=== PATIENT | female | born 1980 | race Caucasian/White ===

== ENCOUNTER 2019-02-01 13:55 | Outpatient (CLI) | payer MEDICARE, MEDICAID, SELFPAY ==
[2019-02-01 14:30] LABS: HCT 48.5 % (36.0-46.0); HGB 17.2 g/dL (12.0-15.5); Mean Corp. HGB Concentration 35.5 g/dL (32.0-36.0); Mean Corpuscular Hemoglobin 32.3 pg (27.0-33.0); Mean Corpuscular Volume 91.2 fL (80-95); Mean Platelet Volume 9.5 fL (8.0-11.0); Platelet Count 234 x1000/uL (130-400); RBC 5.32 m/cumm (4.00-5.20); RBC Distribution Width 11.9 % (11.7-14.6); White Blood Cell Count 8.44 k/cumm (4.4-10.8)
[2019-02-01 14:38] LABS: PTT Activated 26.1 sec (21.0-31.4)
[2019-02-01 16:26] LABS: ALT 29 U/L (12-78); AST 14 U/L (15-37); Anion Gap 10.7 mmol/L (3-11); BUN 19 mg/dL (7-18); CO2 24.3 mmol/L (21.0-32.0); CREATININE 0.71 mg/dL (0.55-1.02); Calcium 8.8 mg/dL (8.5-10.1); Chloride 102 mmol/L (98-107); Cholesterol 245 mg/dL (50-200); Glucose 96 mg/dL (70-100); HDL Cholesterol 39 mg/dL (40-60); LDL CHOLESTEROL 178 mg/dL (<100); Potassium 4.2 mmol/L (3.5-5.1); Sodium 137 mmol/L (136-145); Triglyceride 128 mg/dL (30-150)
== END 2019-02-01 14:15 ==
PROVIDERS: PCP Nurse Practitioner Family; Visit Provider Nurse Practitioner Family
DX: R23.8 Other skin changes (principal); E78.00 Pure hypercholesterolemia, unspecified; R21 Rash and other nonspecific skin eruption; R68.83 Chills (without fever)
CPT/HCPCS: 36415; 80048; 80061; 83721; 85027; 84450; 84460; 85730

== ENCOUNTER 2019-07-13 17:42 | Outpatient (REF) | payer MEDICARE, MEDICAID, SELFPAY ==
--- NOTE | 2019-07-13 15:24 | PAPFT_PTH ---
PATIENT: Judie Felix LOC: [facility] U#:[id number] AGE/SX: 39/F ROOM: RE07/13/[address]: Candelaria Cedeño : 1980 BED: DIS: 07/13/2019 SPEC #: [id number] RECD: 07/14/19 13:14 STATUS: SUMEET REQ #: [id number] ODILIA: 07/13/19 15:[address]: Candelaria Cedeño DEPT: [facility] Cytology RECD BY: Rosario Matos Tissues: 1 - CX/ENDOCX FOR PAP SMEARS Procedures: PAP THIN PREP/UVM Screening HPV DNA PROBE Comments: [id number] (CHLAMYDIA/GC)
[2019-07-15 12:41] LABS: Chlamydia Result Negative; GC Result Negative; Specimen Description SEE COMMENTS
== END 2019-07-13 18:02 ==
LOC: NCHCN 17:42
PROVIDERS: PCP Nurse Practitioner Family; Visit Provider Nurse Practitioner Family
DX: Z11.3 Encounter for screening for infections with a predominantly sexual mode of transmission (principal); Z12.4 Encounter for screening for malignant neoplasm of cervix; Z11.51 Encounter for screening for human papillomavirus (HPV)
CPT/HCPCS: 87491; 87591; 88142; 87624

== ENCOUNTER 2020-11-16 04:10 | Outpatient (CLI) | payer OTHER, MEDICAID, SELFPAY ==
--- NOTE | 2020-11-16 14:51 | DI.RAD_ITS ---
EXAM: XR LUMBAR SPINE COMPLETE CLINICAL HISTORY: LOW BACK PAIN, M54.5. TECHNIQUE: 2D digital imaging was performed. COMPARISON: No exams were available for comparison FINDINGS: The exam is somewhat limited by the patient's body habitus. Vertebral bodies are well maintained in height. The disc spaces are well maintained. There is no spondylolysis, spondylolisthesis or scolio sis. SI joints and visualized portions of the hip joints are unremarkable. The soft tissues are unr emarkable. IMPRESSION: Unremarkable radiographs of the lumbar spine. DATA REPOSITORY: RADIATION DOSE DELIVERED:
== END 2020-11-16 04:30 ==
PROVIDERS: PCP Nurse Practitioner Family; Visit Provider Nurse Practitioner Family
DX: M54.5 Low back pain (principal)
CPT/HCPCS: 72110

== ENCOUNTER 2021-03-10 17:10 | Emergency (ER) | payer OTHER, MEDICAID, SELFPAY ==
[2021-03-10 17:14] VITALS: BP 146/83; PULSE 107; TEMP 36.9; O2SAT 94
--- NOTE | 2021-03-10 17:45 | ED.GENADUL_ITS ---
Discharge Plan Disposition Patient Disposition: HOME Condition: Stable Discharge Details Clinical Impression: Dog bite of left thigh with infection Primary Care Provider: Candelaria Cedeño ED Provider: Dino Mcarthur Home Meds and New Rx's Prescriptions: New levofloxacin 500 mg tablet 500 mg PO DAILY Qty: 10 RF: 0 clindamycin HCl 300 mg capsule 300 mg PO TID 10 Days Qty: 30 RF: 0 Continued medroxyprogesterone 10 MG tablet 10 mg PO DAILY Qty: 90 RF: 1 ipratropium-albuterol [Combivent] 1 PUFF aerosol 2 inhaler Inhalation PRN PRNRF: 0 aripiprazole [Abilify] 30 MG tablet 30 mg PO DAILY RF: 0 clonazepam 1 MG tablet 1 mg PO QID RF: 0 bupropion HCl [Wellbutrin XL] 300 MG tablet extended release 24 hr 450 mg PO DAILY RF: 0 albuterol sulfate 2.5 MG/0.5 ML solution for nebulization 2.5 mg Inhalation PRN PRNRF: 0 umeclidinium [Incruse Ellipta] 1 PUFF blister with device 1 puff Inhalation DAILY RF: 0 Discharge Instructions Instructions: Wound Infection (ED) Additional Instructions: Home to rest today. Elevate the leg above the level of the heart to improve drainage and help reduce pain. May use Tylenol and/or ibuprofen as needed for discomfort. Please stop the currently prescribed Augmentin(amoxicillin with clavulanic acid) We will place you on 2 antibiotics: Levaquin as well as clindamycin. The clindamycin should be taken at home every 6 hours. The Levaquin will be once daily. I recommend you take an [id number] once daily probiotic while on these antibiotics. Return tomorrow for recheck. Return sooner if develop a shaking chills or any other acute concerns. Discharge Data Discharge Date/Time-TO BE ENTERED AT DEPARTURE: 03/10/21 20:08 Medical Decision Making This is a 40-year-old female who presents from home stating that she was bit by a dog on . She was seen in a primary care physician's office on Thursday and started on Augmentin. Her tetanus status was updated at that time. She may take the Augmentin as prescribed and has noticed increasing erythema around the wound edges. No fevers or chills. Patient arrives to the ER afebrile, pulse slightly elevated at 107, normal blood pressure. She has evidence of a cellulitis surrounding area of dog bite left medial thigh. Augmentin is certainly reasonable initial coverage. Her cellulitis is breaking through this oral coverage. IV access established, screening labs and blood culture obtained, patient given IV Levaquin. Labs are reassuring with a white count of 8, hematocrit 46, platelets 256, lactic acid of 1.4, reassuring chemistries. I will place her on a course of Levaquin and clindamycin. She will return tomorrow for recheck. HPI General Mode of arrival: ambulatory . Date/Time Provider Initiated Documentation: 03/10/21 17:32 . Limitations to Documentation: no limitations . Information obtained by: patient . History of Present Illness 40 year old F presents to the emergency department with the chief complaint of Left leg dog bite, described as moderate, Quality is described as dull and constant, and is localized to the left and lower extremity. Patient reports no radiation. Patient started experiencing this day(s) and it has been constant. No relieving factors improve symptom(s), No exacerbating factors reported . Patient notes denies fever/chills. Patient did receive the following treatments prior to arrival, none Related Data Home Medications Medication Instructions Recorded Confirmed aripiprazole [Abilify] 30 mg PO DAILY 12/31/12 10/15/17 bupropion HCl [Wellbutrin XL] 450 mg PO DAILY 12/31/12 10/15/17 clonazepam 1 mg PO QID 12/31/12 10/15/17 ipratropium-albuterol [Combivent] 2 inhaler INHALATION PRN PRN 12/31/12 10/15/17 albuterol sulfate 2.5 mg INHALATION PRN PRN 10/13/17 10/15/17 umeclidinium [Incruse Ellipta] 1 puff INHALATION DAILY 10/13/17 10/15/17 medroxyprogesterone 10 mg PO DAILY #90 tab 10/27/17 clindamycin HCl 300 mg PO TID 10 Days #30 cap 03/10/21 levofloxacin 500 mg PO DAILY #10 tab 03/10/21 Previous Rx's Medication Instructions Recorded medroxyprogesterone 10 mg PO DAILY #90 tab 10/27/17 clindamycin HCl 300 mg PO TID 10 Days #30 cap 03/10/21 levofloxacin 500 mg PO DAILY #10 tab 03/10/21 Allergies Allergy/AdvReac Type Severity Reaction Status Date / Time Penicillins AdvReac Intermediate Hives Unverified 03/11/21 15:01 ropinirole [From Requip] AdvReac Intermediate hallucinate Unverified 03/11/21 15:01 / confusion General Stated Complaint: Cellulitis ROYAL: 3 Review of Systems Narrative: No fever or chills. Taking Augmentin day #3. Tetanus is updated. 6 systems reviewed and otherwise negative [facility] Social History Smoking/Tobacco Use Status: Current every day Tobacco Type: cigarettes Smoking risk assessment performed?: Yes Alcohol Intake: former Drug use: Current Sobriety Substance use type: does not use Do you feel safe at home: Yes Do you feel safe in your relationship?: Yes Exam Narrative Exam Narrative: GEN: awake, alert, oriented 3. Pleasant, well groomed, interactive. HEAD: Normocephalic, atraumatic ENT: Mucous membranes moist, oropharynx unremarkable, External ear exam unremarkable EYES: PERRL, EOMI NECK: Full ROM, no CRYSTAL, no menigismus CHEST/RESP: Nontender, clear to auscultation bilateral, no wheeze/rhonchi/rales CARDIOVASCULAR: RRR, no murmur, rub augustine. 2+ Rad pulse bilateral EXT: Full ROM, n left medial thigh with approximately 1 x 2 cm laceration an additional puncture wound surrounded by approximately 10 cm diameter erythema, tender to the touch. Neuro: Grossly normal neurologic exam, conversant, interactive. Psych: Speech fluent, thoughts congruent, affect normal Course Vital Signs Vital signs: Vital Signs Temperature 36.9 C 03/10/21 17:14 Pulse 107 H 03/10/21 17:14 Blood Pressure 146/83 H 03/10/21 17:14 Pulse Oximetry 94 03/10/21 17:14 Temperature 36.9 C 03/10/21 17:14 Temperature Source Oral 03/10/21 17:14 Pulse 107 H 03/10/21 17:14 Blood Pressure 146/83 H 03/10/21 17:14 Blood Pressure Position Sitting 03/10/21 17:14 Pulse Oximetry 94 03/10/21 17:14 Oxygen Delivery Method Room Air 03/10/21 17:14 Oxygen Flow Rate 0 03/10/21 17:14 Pain Level 8 03/10/21 17:14
[2021-03-10 18:33] LABS: Abs Immature Grans 0.03 10^3/uL (0.0-0.06); Absolute Basophil Count 0.05 10^3/uL (0.0-0.2); Absolute Eosinophil Count 0.01 10^3/uL (0.0-0.7); Absolute Lymphocyte Count 2.79 10^3/uL (1.2-3.4); Absolute Monocyte Count 0.56 10^3/uL (0.1-0.8); Absolute Neutrophil Count 5.27 10^3/uL (1.2-6.7); Basophils % 0.6; Eosinophils % 0.1; HCT 46.1 % (36.0-46.0); HGB 15.5 g/dL (11.2-15.7); Immature Grans % 0.3; MCH 31.6 pg (27.0-33.0); MCHC 33.6 % (32.0-36.0); MCV 94.1 fL (80-95); MPV 9.5 fL (8.0-11.0); Monocytes % 6.4; Neutrophils % 60.6; Nucleated RBC 0 %; Platelet Count 256 10^3/uL (130-400); RDW 11.3 % (11.7-14.6); RDW-SD 39.5 fL; WBC 8.71 10^3/uL (4.4-10.8)
[2021-03-10] MEDS: Normal Saline Flush 10 ML SYR IVP (18:33)
[2021-03-10] MEDS: Ketorolac 15 MG/ML VIAL IVP (18:33)
[2021-03-10] MEDS: levoFLOXacin 750 MG/150 ML BAG 100 MG IVPB (18:33)
[2021-03-10] MEDS: Normal Saline 1,000 ML 1000 ML IV (18:33)
[2021-03-10 18:34] LABS: Lactate 1.4 mmol/L (0.6-1.4)
[2021-03-10 18:44] LABS: BUN 26 mg/dL (7-18); CREATININE 0.7 mg/dL (0.55-1.02); Calcium 9.1 mg/dL (8.5-10.1); Chloride 103 mmol/L (98-107); Glucose 94 mg/dL (74-106); Potassium 4.1 mmol/L (3.5-5.1); Sodium 139 mmol/L (136-145)
[2021-03-10 19:00] VITALS: BP 130/79; PULSE 86; RESP 18; TEMP 37.2; O2SAT 97
[2021-03-10 19:52] VITALS: BP 112/75; PULSE 91; RESP 16; TEMP 36.9; O2SAT 96
--- NOTE | 2021-03-11 09:03 | NUR.NOTE ---
Nursing Note: Patient called stating that her leg is throbbing more, swollen more and she is still waiting for her blood culture results. I told her that the blood cultures are still pending. I also told her that the discharge instructions stated to return today for recheck and that she needed to return for this visit. She stated she would come back today. Mishel Reyez
== END 2021-03-10 20:08 | disposition home or self-care (01) ==
PROVIDERS: Emergency Provider Emergency Medicine; PCP Nurse Practitioner Family
DX: S71.152A Open bite, left thigh, initial encounter (principal); L03.116 Cellulitis of left lower limb; W54.0XXA Bitten by dog, initial encounter
CPT/HCPCS: 36415; 80048; 87040; 96361; 96365; 96375; 99284; 83605; 85025; 99283; J1885; J1956

== ENCOUNTER 2021-03-11 14:43 | Emergency (ER) | payer OTHER, MEDICAID, SELFPAY ==
[2021-03-11 14:51] VITALS: BP 146/78; PULSE 103; RESP 22; TEMP 37.1; O2SAT 95
--- NOTE | 2021-03-11 15:00 | DI.CT_ITS ---
Exam(s) CT LOWER EXTREMITY LT W EXAM: CT LOWER EXTREMITY LT W CLINICAL HISTORY: dog bite L thigh, worsening, r/o nec/fasc TECHNIQUE: COMPARISON: No exams were available for comparison FINDINGS: CT examination of the left thigh was performed. There is a poorly history of dog bite on the inner t high, there is corresponding soft tissue defect noted at this site with mild surrounding edema. Ther e is no evidence of a foreign body. No muscular injury identified. No bony injury identified. IMPRESSION: Anterior medial thigh soft tissue defect secondary to dog bite, no foreign body identified. RADIATION DOSE DELIVERED: 383.21mGy.cm Total DLP RADIATION OPTIMIZATION: All CT scans at this facility use at least one of these dose optimization te chniques: automated exposure control; mA and/or kV adjustment per patient size (includes targeted exa ms where dose is matched to clinical indication); or iterative reconstruction.
[2021-03-11] MEDS: Lactated Ringers 1,000 ML 1000 ML IV (15:40)
--- NOTE | 2021-03-11 15:47 | W.ED.GENAD ---
Discharge Plan Disposition Patient Disposition: HOME Condition: Good Discharge Details Clinical Impression: Dog bite, Cellulitis of left thigh Primary Care Provider: Candelaria Cedeño ED Provider: Jaden Flannery Home Meds and New Rx's Prescriptions: Continued medroxyprogesterone 10 MG tablet 10 mg PO DAILY Qty: 90 RF: 1 ipratropium-albuterol [Combivent] 1 PUFF aerosol 2 inhaler Inhalation PRN PRNRF: 0 aripiprazole [Abilify] 30 MG tablet 30 mg PO DAILY RF: 0 clonazepam 1 MG tablet 1 mg PO QID RF: 0 bupropion HCl [Wellbutrin XL] 300 MG tablet extended release 24 hr 450 mg PO DAILY RF: 0 albuterol sulfate 2.5 MG/0.5 ML solution for nebulization 2.5 mg Inhalation PRN PRNRF: 0 umeclidinium [Incruse Ellipta] 1 PUFF blister with device 1 puff Inhalation DAILY RF: 0 levofloxacin 500 mg tablet 500 mg PO DAILY Qty: 10 RF: 0 clindamycin HCl 300 mg capsule 300 mg PO TID 10 Days Qty: 30 RF: 0 Discharge Instructions Instructions: Animal Bite (ED), Cellulitis (ED) Additional Instructions: At this time your labs are slightly improved compared to your last visit. The CAT scan shows no evidence of gas extending up your muscles or legs, and shows no signs of large abscess. The antibiotics at this point appears to be doing their job. Please continue to take them as directed. Please make sure you are eating a yogurt with live cultures like activity and taking a probiotic to help prevent any diarrhea. You have been sent home with a few pain pills. Use these as needed for breakthrough pain. They have some Tylenol in them, so only take a maximum dose of 500 mg of Tylenol when you take this pain pill. Continue to use 800 mg of Motrin every 6 hours as needed for pain. Please follow-up in the next 3 days for wound recheck with your primary care provider or in the emergency department. If you notice any worsening of your symptoms, or any new symptoms such as spreading of the redness up or down your leg, worsening pain or discharge from your leg, dishwater-like discharge coming from your leg, vomiting, diarrhea, fever, chills, shortness of breath, chest pain, numbness, weakness, or fainting , please return immediately to the emergency department for reevaluation. Please follow up with your primary care provider as soon as possible for reassessment and reevaluation. As always, it was a pleasure participating in your medical care today. Referrals: Candelaria Cedeño [Primary Care Provider] - Medical Decision Making This is a pleasant 40-year-old female with a past medical history of tobacco abuse, fibromyalgia, COPD, anxiety, who presents for reevaluation of dog bite. Patient states that 6-7 days ago she was bitten by a dog on the left thigh. The dog's rabies vaccines are up-to-date. Patient's tetanus status was up-to-date. 4 days ago she went and saw her PCP who appropriately started her on Augmentin. Unfortunately in spite of appropriate therapy she developed worsening redness swelling and pain in her left thigh. She was seen here in the emergency department yesterday by Dr. Mcarthur, laboratory work-up at that time was reassuring and relatively unremarkable. Patient was given IV Levaquin and a dose of clindamycin, she was discharged home with prescription for Levaquin and clindamycin as well. She comes back today for wound recheck. Patient states that since yesterday the pain has become more severe, she feels that the swelling has been the same. She has pain when she moves her leg, touches the area around the bite, or tries to walk. She denies fever or chills. She denies nausea vomiting or diarrhea. She denies any chest pain or shortness of breath. She has been taking the antibiotics as directed. No other complaints at this time. No other modifying factors. Exam demonstrates to lesions on the medial thigh on the left. The larger 4 cm lesion is gaping, mildly purple around the wound edges, mildly red surrounding this. Notable tenderness in this area, the smaller lesion is roughly 1.5 cm, mildly tender. There is swelling somewhat posteriorly to these lesions, but no severe redness aside from mild circumferential redness. Mild tenderness proximally up the thigh which is concerning. No subcutaneous crepitus that I can appreciate. No hard compartments to suggest compartment syndrome. No decrease in sensation to suggest compartment syndrome. Mild swelling on the medial aspect of the left knee, but no redness or warmth. Minimal pain with movement of the knee. It is challenging to determine whether things are worse or better objectively. Patient states that the pain is certainly worse than before. No fever or chills. Mild tachycardia. We will get repeat labs to look for any change, however I do think it is pertinent to get imaging at this time to evaluate for gas extending up the muscle belly regions. Symptoms do not appear overly consistent with neck fascia at this time, no large amounts of dish watery discharge or discharge of significance to speak of. We will get a CT scan to assess for these concerns. Will monitor closely and reassess. 5:[address] scan results have returned, no evidence of subcutaneous air, no evidence of necrotizing fasciitis, the patients labs are notably improved, lactate normal, white count stable, no elevation, no bandemia or left shift. Electrolytes stable. On reassessment patient feels well, she clinically shows no signs of necrotizing fasciitis, foreign years, compartment syndrome, or sepsis. At this time based on clinical assessment, encouraging labs, and relatively unremarkable imaging I do feel that the patient is stable for discharge with continued outpatient oral antibiotics. No current clinical indication for inpatient admission. We will also recommend to the patient that she takes a yogurt with live cultures, we will give for [place] pain pills for home use for breakthrough pain if needed. Recommend close follow-up for wound recheck. I have extensively reviewed the treatment plan and discharge instructions with the patient. I have addressed all patient concerns at this time. The patient was made aware of what symptoms to monitor for that would warrant a return to the emergency department. Discussed the plan with the patient, they demonstrate verbal understanding and agreement with our assessment and plan at this time. The documentation in this chart was dictated using [employer] dictation software. Please excuse any dictation errors. FINDINGS: Bones/joints: Normal. No acute fracture or dislocation. Soft tissues: There is subcutaneous soft tissue edema diffusely about the subcutaneous soft tissues of the posterior, posterolateral and medial left thigh. There is no evidence for a radiopaque foreign body. There is a shallow soft tissue defect of the anteromedial soft tissues of the mid to distal left thigh, measuring 2.1 cm transverse by 6 mm craniocaudal. There is more intense regional subcutaneous soft tissue edema in this region. IMPRESSION: 1. A shallow soft tissue defect at the anteromedial soft tissues of the mid to distal left thigh compatible with soft tissue laceration. 2. Diffuse subcutaneous soft tissue edema about the left thigh. Consider cellulitis. 3. No evidence for a radiopaque foreign body. Thank you for allowing us to participate in the care of your patient. Dictated and Authenticated by: Baljinder Gallo MD [facility] General Date/Time Provider Initiated Documentation: 03/11/21 15:03. [facility] Narrative: This is a pleasant 40-year-old female with a past medical history of tobacco abuse, fibromyalgia, COPD, anxiety, who presents for reevaluation of dog bite. Patient states that 6-7 days ago she was bitten by a dog on the left thigh. The dog's rabies vaccines are up-to-date. Patient's tetanus status was up-to-date. 4 days ago she went and saw her PCP who appropriately started her on Augmentin. Unfortunately in spite of appropriate therapy she developed worsening redness swelling and pain in her left thigh. She was seen here in the emergency department yesterday by Dr. Mcarthur, laboratory work-up at that time was reassuring and relatively unremarkable. Patient was given IV Levaquin and a dose of clindamycin, she was discharged home with prescription for Levaquin and clindamycin as well. She comes back today for wound recheck. Patient states that since yesterday the pain has become more severe, she feels that the swelling has been the same. She has pain when she moves her leg, touches the area around the bite, or tries to walk. She denies fever or chills. She denies nausea vomiting or diarrhea. She denies any chest pain or shortness of breath. She has been taking the antibiotics as directed. No other complaints at this time. No other modifying factors. Related Data Home Medications Medication Instructions Recorded Confirmed aripiprazole [Abilify] 30 mg PO DAILY 12/31/12 10/15/17 bupropion HCl [Wellbutrin XL] 450 mg PO DAILY 12/31/12 10/15/17 clonazepam 1 mg PO QID 12/31/12 10/15/17 ipratropium-albuterol [Combivent] 2 inhaler INHALATION PRN PRN 12/31/12 10/15/17 albuterol sulfate 2.5 mg INHALATION PRN PRN 10/13/17 10/15/17 umeclidinium [Incruse Ellipta] 1 puff INHALATION DAILY 10/13/17 10/15/17 medroxyprogesterone 10 mg PO DAILY #90 tab 10/27/17 clindamycin HCl 300 mg PO TID 10 Days #30 cap 03/10/21 levofloxacin 500 mg PO DAILY #10 tab 03/10/21 Previous Rx's Medication Instructions Recorded medroxyprogesterone 10 mg PO DAILY #90 tab 10/27/17 clindamycin HCl 300 mg PO TID 10 Days #30 cap 03/10/21 levofloxacin 500 mg PO DAILY #10 tab 03/10/21 Allergies Allergy/AdvReac Type Severity Reaction Status Date / Time Penicillins AdvReac Intermediate Hives Unverified 03/11/21 15:01 ropinirole [From Requip] AdvReac Intermediate hallucinate Unverified 03/11/21 15:01 / confusion General Stated Complaint: AnimalBite ROYAL: 3 Review of Systems All systems reviewed & are unremarkable except as noted in HPI and below PFSH Social History Smoking/Tobacco Use Status: Current every day Tobacco Type: cigarettes Smoking risk assessment performed?: Yes Alcohol Intake: former Drug use: Current Sobriety Substance use type: does not use Do you feel safe at home: Yes Do you feel safe in your relationship?: Yes Exam Narrative Exam Narrative: 1.Const: Well-nourished, Well-developed, appearing stated age 2.Eyes: PERRL, no conjunctival injection, and symmetrical lids. 3.ENT: Atraumatic external nose and ears. Moist MM. Neck: Symmetric, trachea midline, No thyromegaly. 4.CVS: +S1/S2, No murmurs or gallops. Peripheral pulses 2+ and equal in all extremities. Brisk capillary refill in all extremities. 5.RESP: Unlabored respiratory effort. Clear to auscultation bilaterally. No wheezes rales or rhonchi 6.GI: Soft, Nontender/Nondistended, No hepatosplenomegaly. No guarding or rebound. 7.MSK: NormocephalicNo cyanosis or clubbing, Normal movement of all extremities, please see skin 8.Skin: Appropriately warm, Dry. The patient's left thigh demonstrates 2 bite parra. The first is slightly proximal, it is roughly 4 cm, slightly gaping, purple around the edges, with mild erythema extending about 1 to 2 cm circumferentially. There is a second much smaller bite lisbet just distal to it, roughly 1.5 to 2 cm in width. Minimal bruising around it, no erythema. All of the areas surrounding both of these bites is notably sensitive and tender, posteriorly towards the posterior thigh there is also swelling and tenderness. No crepitus that I can appreciate. Patient does have tenderness extending towards the medial thigh towards the groin. No crepitus in this area. Mild pain withadduction of the thighs. Mild pain with flexion at the hip. No significant pain in the calf or groin. No tense compartment. Good distal neurovascular exam with normal sensation throughout the foot and calf. Normal two-point discrimination for the foot and left lower extremity good dorsalis pedis and posterior tibial pulse. Mild swelling is also appreciated over the medial aspect of the knee on the left, but no redness in this area. Minimal tenderness in this area. No warmth that is atypical. 9.Neuro: hotel staff member II-XII grossly intact. Sensation grossly intact, no focal neurologic deficits. 10.Psych: (AAO) x3. Appropriate mood and affect Course Vital Signs Vital signs: Vital Signs Temperature 37.1 C 03/11/21 14:51 Pulse 103 H 03/11/21 14:51 Respiratory Rate 22 03/11/21 14:51 Blood Pressure 146/78 H 03/11/21 14:51 Pulse Oximetry 95 03/11/21 14:51 Temperature 37.1 C 03/11/21 14:51 Temperature Source Skin 03/11/21 14:51 Pulse 103 H 03/11/21 14:51 Respiratory Rate 22 03/11/21 14:51 Blood Pressure 146/78 H 03/11/21 14:51 Blood Pressure Position Sitting 03/11/21 14:51 Pulse Oximetry 95 03/11/21 14:51 Oxygen Delivery Method Room Air 03/11/21 14:51 Oxygen Flow Rate 0 03/11/21 14:51 Pain Level 8 03/11/21 14:51 Comment 03/11/21 14:51
[2021-03-11 15:49] LABS: Lactate 0.8 mmol/L (0.6-1.4)
[2021-03-11 15:58] LABS: Abs Immature Grans 0.03 10^3/uL (0.0-0.06); Absolute Basophil Count 0.04 10^3/uL (0.0-0.2); Absolute Eosinophil Count 0.01 10^3/uL (0.0-0.7); Absolute Lymphocyte Count 2.22 10^3/uL (1.2-3.4); Absolute Monocyte Count 0.51 10^3/uL (0.1-0.8); Absolute Neutrophil Count 5.47 10^3/uL (1.2-6.7); Basophils % 0.5; Eosinophils % 0.1; HCT 45.1 % (36.0-46.0); HGB 15.3 g/dL (11.2-15.7); Immature Grans % 0.4; Lymphocytes % 26.8; MCH 31.6 pg (27.0-33.0); MCHC 33.9 % (32.0-36.0); MCV 93.2 fL (80-95); MPV 9.5 fL (8.0-11.0); Monocytes % 6.2; Nucleated RBC 0 %; Platelet Count 254 10^3/uL (130-400); RBC 4.84 10^6/uL (3.93-5.22); RDW 11.3 % (11.7-14.6); RDW-SD 38.6 fL; WBC 8.28 10^3/uL (4.4-10.8)
[2021-03-11] MEDS: Normal Saline - Diluent 50 ML VIAL IV (16:08)
[2021-03-11] MEDS: Omnipaque 350 MG/ML 100 ML BTL IJ (16:08)
[2021-03-11 16:11] LABS: ALT 25 U/L (14-59); AST 14 U/L (15-37); Albumin 3.5 g/dL (3.4-5.0); Alkaline Phosphatase 62 U/L (46-116); Anion Gap 9.5 mmol/L (3-11); BUN 22 mg/dL (7-18); Bilirubin, Total 0.7 mg/dL (0.2-1.0); CO2 26.5 mmol/L (21.0-32.0); CREATININE 0.7 mg/dL (0.55-1.02); Calcium 8.8 mg/dL (8.5-10.1); Chloride 103 mmol/L (98-107); Glucose 105 mg/dL (74-106); Sodium 139 mmol/L (136-145); Total Protein 7.1 g/dL (6.4-8.2)
--- NOTE | 2021-03-11 17:00 | DI.VRAD_ITS ---
PROCEDURE INFORMATION: Exam: CT Left Lower Extremity With Contrast; Thigh Exam date and time: 03/11/2021 3:54 PM Age: 40 years old Clinical indication: Injury or trauma; Wound; Thigh or upper leg; Foreign body involvement not specified; Patient HX: Dog bite inner left thigh TECHNIQUE: Imaging protocol: CT of the Left lower extremity with intravenous contrast was performed. Exam focused on the thigh. COMPARISON: No relevant prior studies available. FINDINGS: Bones/joints: Normal. No acute fracture or dislocation. Soft tissues: There is subcutaneous soft tissue edema diffusely about the subcutaneous soft tissues of the posterior, posterolateral and medial left thigh. There is no evidence for a radiopaque foreign body. There is a shallow soft tissue defect of the anteromedial soft tissues of the mid to distal left thigh, measuring 2.1 cm transverse by 6 mm craniocaudal. There is more intense regional subcutaneous soft tissue edema in this region. IMPRESSION: 1. A shallow soft tissue defect at the anteromedial soft tissues of the mid to distal left thigh compatible with soft tissue laceration. 2. Diffuse subcutaneous soft tissue edema about the left thigh. Consider cellulitis. 3. No evidence for a radiopaque foreign body. Dictated and Authenticated by: Baljinder Gallo MD. Ordering:PAULA Stanley MD
[2021-03-11 17:03] VITALS: BP 140/70; PULSE 87; TEMP 36.6; O2SAT 97
== END 2021-03-11 17:30 | disposition home or self-care (01) ==
PROVIDERS: Emergency Provider Student in an Organized Health Care Education/Training Program; PCP Nurse Practitioner Family
DX: S71.152D Open bite, left thigh, subsequent encounter (principal); L03.116 Cellulitis of left lower limb; W54.0XXA Bitten by dog, initial encounter
CPT/HCPCS: 80053; 96361; 96374; 96375; 99284; 73701; 83605; 85025; 99283; J3490

== ENCOUNTER → 2021-03-21 15:00 | Outpatient (BNVA) | payer OTHER, MEDICAID, SELFPAY | PROVIDERS: PCP Nurse Practitioner Family; Referring Provider Nurse Practitioner Family; Visit Provider Physical Therapy Assistant | DX: S71.152A Open bite, left thigh, initial encounter (principal); W54.0XXA Bitten by dog, initial encounter; L08.9 Local infection of the skin and subcutaneous tissue, unspecified; L03.116 Cellulitis of left lower limb; J44.9 Chronic obstructive pulmonary disease, unspecified; F17.210 Nicotine dependence, cigarettes, uncomplicated | CPT/HCPCS: 99215; 96372; J0696 ==

== ENCOUNTER 2021-03-21 17:20 | Outpatient (REF) | payer OTHER, MEDICAID, SELFPAY ==
[2021-03-21 19:51] LABS: Abs Immature Grans 0.02 10^3/uL (0.0-0.06); Absolute Basophil Count 0.06 10^3/uL (0.0-0.2); Absolute Eosinophil Count 0.01 10^3/uL (0.0-0.7); Absolute Lymphocyte Count 2.65 10^3/uL (1.2-3.4); Absolute Monocyte Count 0.55 10^3/uL (0.1-0.8); Absolute Neutrophil Count 3.96 10^3/uL (1.2-6.7); Basophils % 0.8; Eosinophils % 0.1; HCT 46.4 % (36.0-46.0); HGB 15.9 g/dL (11.2-15.7); Immature Grans % 0.3; Lymphocytes % 36.6; MCH 31.5 pg (27.0-33.0); MCHC 34.3 % (32.0-36.0); MCV 92.1 fL (80-95); MPV 10.2 fL (8.0-11.0); Monocytes % 7.6; Neutrophils % 54.6; Nucleated RBC 0 %; Platelet Count 274 10^3/uL (130-400); RBC 5.04 10^6/uL (3.93-5.22); RDW 11.6 % (11.7-14.6); WBC 7.25 10^3/uL (4.4-10.8)
[2021-03-21 20:00] LABS: ALT 24 U/L (14-59); AST 12 U/L (15-37); Albumin 3.9 g/dL (3.4-5.0); Alkaline Phosphatase 52 U/L (46-116); Anion Gap 8.9 mmol/L (3-11); BUN 19 mg/dL (7-18); Bilirubin, Total 0.5 mg/dL (0.2-1.0); C-Reactive Protein 0.23 mg/dL (0.0-0.3); CO2 24.1 mmol/L (21.0-32.0); CREATININE 0.8 mg/dL (0.55-1.02); Calcium 8.9 mg/dL (8.5-10.1); Chloride 105 mmol/L (98-107); Glucose 93 mg/dL (74-106); Potassium 3.9 mmol/L (3.5-5.1); Sodium 138 mmol/L (136-145)
== END 2021-03-21 17:21 | disposition home or self-care (01) ==
LOC: LBN 17:20
PROVIDERS: PCP Nurse Practitioner Family; Visit Provider Physical Therapy Assistant
DX: L03.116 Cellulitis of left lower limb (principal); S71.152D Open bite, left thigh, subsequent encounter
CPT/HCPCS: 80053; 85025; 86140; 87070; 87205

== ENCOUNTER → 2021-03-22 14:37 | Outpatient (BNVA) | payer OTHER, MEDICAID, SELFPAY | PROVIDERS: PCP Nurse Practitioner Family; Referring Provider Nurse Practitioner Family; Visit Provider Physical Therapy Assistant | DX: S71.102D Unspecified open wound, left thigh, subsequent encounter (principal); X58.XXXD Exposure to other specified factors, subsequent encounter | CPT/HCPCS: 97597 ==

== ENCOUNTER 2021-03-26 03:28 | Outpatient (RCR) | payer OTHER, MEDICAID, SELFPAY ==
[2021-03-22] MEDS: cefTRIAXone 1 GM/50 ML BAG IVPB (13:23)
[2021-03-22] MEDS: Normal Saline Flush 10 ML SYR IVP (13:24)
[2021-03-23] MEDS: cefTRIAXone 1 GM/50 ML BAG IVPB (13:37)
[2021-03-23] MEDS: Normal Saline Flush 10 ML SYR IVP (13:40)
[2021-03-24] MEDS: cefTRIAXone 1 GM/50 ML BAG IVPB (13:56)
[2021-03-24] MEDS: Normal Saline Flush 10 ML SYR IVP (14:00)
[2021-03-25] MEDS: cefTRIAXone 1 GM/50 ML BAG IVPB (13:20)
[2021-03-25] MEDS: Normal Saline Flush 10 ML SYR IVP (14:05)
[2021-03-26] MEDS: cefTRIAXone 1 GM/50 ML BAG IVPB (13:16)
[2021-03-26] MEDS: Normal Saline Flush 10 ML SYR IVP (13:16)
== END 2021-04-20 23:59 | disposition home or self-care (01) ==
LOC: INF 03:28
PROVIDERS: PCP Nurse Practitioner Family; Visit Provider Physical Therapy Assistant
DX: L03.116 Cellulitis of left lower limb (principal); W54.0XXD Bitten by dog, subsequent encounter
CPT/HCPCS: 96365; J0696

== ENCOUNTER → 2021-03-28 10:55 | Outpatient (BNVA) | payer OTHER, MEDICAID, SELFPAY | PROVIDERS: PCP Nurse Practitioner Family; Referring Provider Nurse Practitioner Family; Visit Provider Physical Therapy Assistant | DX: S71.152D Open bite, left thigh, subsequent encounter (principal); W54.0XXD Bitten by dog, subsequent encounter | CPT/HCPCS: 97606; 99212 ==

== ENCOUNTER → 2021-04-04 11:35 | Outpatient (BNVA) | payer OTHER, MEDICAID, SELFPAY | PROVIDERS: PCP Nurse Practitioner Family; Referring Provider Nurse Practitioner Family; Visit Provider Physical Therapy Assistant | DX: S71.102D Unspecified open wound, left thigh, subsequent encounter (principal); X58.XXXD Exposure to other specified factors, subsequent encounter | CPT/HCPCS: 99213 ==

== ENCOUNTER → 2021-04-19 10:00 | Outpatient (BNVA) | payer OTHER, MEDICAID, SELFPAY | PROVIDERS: PCP Nurse Practitioner Family; Referring Provider Nurse Practitioner Family; Visit Provider Physical Therapy Assistant | DX: L03.116 Cellulitis of left lower limb (principal); W54.0XXA Bitten by dog, initial encounter | CPT/HCPCS: 99213 ==

== ENCOUNTER 2022-01-16 01:56 | Outpatient (CLI) | payer MEDICARE, MEDICAID, SELFPAY ==
--- NOTE | 2022-01-16 15:02 | DI.US_ITS ---
APPROVED REPORT EXAM: Comprehensive 2D, Doppler, and color-flow Echocardiogram Patient Location: Out-Patient [place] Thinner: Viviana Kc RDCS (AE) Indications: SOB, Edema, COPD, Smoker Other Information Study Quality: Poor. Technically limited study due to body habitus, lung disease. Conclusion Technically very limited and suboptimal study Left ventricular systolic function appears within the range of normal Unable to assess right ventricular size and function, left and right atrial size Tricuspid and mitral valves appear structurally normal Aortic and pulmonic valves are not well visualized Wall motion Left Ventricle The left ventricle is normal size. The overall left ventricular systolic function appears grossly nor mal. There is normal left ventricular wall thickness. There is no ventricular septal defect visualize d. LVEF is 56%. Right Ventricle Right ventricle is not well visualized. Right ventricular systolic function could not be assessed. Atria Left atrium is not well visualized. Right atrium is not well visualized. The interatrial septum is in tact with no evidence for an atrial septal defect. Aortic Valve The aortic valve is not well visualized. There is no aortic valvular stenosis. Mitral Valve Mitral valve is grossly normal. No evidence of mitral valve stenosis. Tricuspid Valve Tricuspid valve is grossly normal in structure and function. Trace tricuspid regurgitation. Unable to assess PA pressure. Pulmonic Valve Pulmonic valve is not well visualized. Great Vessels The aortic root is normal in size. Ascending aorta is not well visualized. Aortic arch is not well vi sualized. IVC is normal in size and collapses >50% with inspiration. Pericardium There is no pericardial effusion. 2D Dimensions IVSD d PLAX 1.10 cm F: 0.6-1.0 LVPW d PLAX 0.95 cm F: 0.6 - 1.0 LVID d PLAX 4.00 cm F: 3.8 - 5.2 LVDs 2.80 cm F: 2.2 - 3.5 Ao Root d 2.94 cm F: 2.7 - 3.3 LV EF Teichholz 56.7 % FS 29.25 % LV Diastology MV E' lateral 0.091 (>0.1 m/s) E/A Ratio 1.1 LV E/e LAT 11.10 (<14) MV E Vmax 1.01 (0.4-1.3 m/s) MV E/E' lateral 11.13 MV A Vmax 0.90 (0.4-1.3 m/s) MV E/A Ratio 1.07 Aortic Valve LVOT Area 3.61 cm2 AoV Area Vmax 2.89 cm2 LVOT Vmax 1.16 m/s AoV Area/ BSA (Vmax) 1.35 cm2/m2 LVOT Mean Jamil. 0.74 m/s RANCHO Mean Jamil. 2.52 cm2 LVOT Peak Grad 5.4 mmHg RANCHO Mean Jamil. Index 1.18 cm2/m2 LVOT Mean Grad 2.6 mmHg LVOT VTI 0.229 m LVOT Diam s 2.10 cm AoV Vmax 1.45 m/s Velocity Ratio 0.80 AoV Mean Jamil. 1.05 m/s AoV Peak Grad 8.4 mmHg LVOT SV 82.66 mL AoV Mean Grad 4.9 mmHg AoV VTI 0.269 m AoV Area VTI 3.07 cm2 AoV Area/ BSA (VTI) 1.43 cm/m2 Mitral Valve MV DT 253 (160-240 msec) MV PHT 73 msec MV Area PHT 3.00 cm2 MV VTI 0.308 m MV Area VTI 2.69 (4.0-6.0 cm2)
== END 2022-01-16 02:16 ==
PROVIDERS: PCP Nurse Practitioner Family; Visit Provider Nurse Practitioner Family
DX: R06.02 Shortness of breath (principal); R60.9 Edema, unspecified; J44.9 Chronic obstructive pulmonary disease, unspecified; Z72.0 Tobacco use
CPT/HCPCS: 93306

== ENCOUNTER 2022-01-21 15:51 | Outpatient (REF) | payer MEDICARE, MEDICAID, SELFPAY ==
--- NOTE | 2022-01-21 12:15 | SKI_PTH ---
PATIENT: Judie Felix LOC: Judy U#:[id number] AGE/SX: 41/F ROOM: RE01/21/[address]: Candelaria Cedeño : 1980 BED: DIS: 01/21/2022 SPEC #: [id number] RECD: 01/22/22 12:17 STATUS: SUMEET REMarcia #: [id number] ODILIA: 01/21/22 12:[address]: Candelaria Cedeño DEPT: Surgical Specimen RECD BY: Jessica Bledsoe Tissues: 1 - SKIN BIOPSY(SHAVE/PUNCH) Procedures: SKIN LEVEL 4 Comments: [id number]
== END 2022-01-21 15:52 | disposition home or self-care (01) ==
LOC: LBN 15:51
PROVIDERS: PCP Nurse Practitioner Family; Visit Provider Nurse Practitioner Family
DX: L30.8 Other specified dermatitis (principal)
CPT/HCPCS: 88305

== ENCOUNTER → 2022-03-04 01:30 | Outpatient (CLI) | payer MEDICARE, MEDICAID, SELFPAY ==
--- NOTE | 2022-03-04 | DI.US_ITS ---
Exam(s) US SOFT TISSUE EXTREMITY EXAM: US SOFT TISSUE EXTREMITY CLINICAL HISTORY: PERSISTENT SWELLING, PAIN LT UPPER LEG, ? MASS,M79.605. TECHNIQUE: Ultrasound was performed using standard protocol. COMPARISON: US US ECHOCARDIOGRAM from 01/16/2022 FINDINGS: Sonographic assessment utilizing grayscale and color Doppler imaging was performed and targeted to th e area of clinical concern. Area of concern is anterior lateral left thigh. Provided images reveal no evidence of solid or significant cystic mass and no lymphadenopathy. IMPRESSION: No focal ultrasound findings in the area of clinical concern. If clinically indicated follow-up MRI can be performed. DATA REPOSITORY:
== END ==
PROVIDERS: PCP Nurse Practitioner Family; Visit Provider Family Medicine
DX: M79.652 Pain in left thigh (principal); R22.42 Localized swelling, mass and lump, left lower limb
CPT/HCPCS: 36415; 76881; 85652; 86038; 86140; 86431

== ENCOUNTER 2022-03-04 02:39 | Outpatient (CLI) | payer MEDICARE, MEDICAID, SELFPAY ==
[2022-03-04 13:56] LABS: C-Reactive Protein 0.15 mg/dL (0.0-0.3)
[2022-03-04 14:01] LABS: ESR 6 mm/hr (0-20)
[2022-03-04 22:38] LABS: Rheumatoid Factor <8.6 IU/mL (<12.0)
[2022-03-05 14:34] LABS: ANA Interpretation Negative (Negative)
== END 2022-03-04 02:40 | disposition home or self-care (01) ==
LOC: LBO 02:39
PROVIDERS: PCP Nurse Practitioner Family; Visit Provider Nurse Practitioner Family
DX: L30.8 Other specified dermatitis (principal)
CPT/HCPCS: 36415; 85652; 86038; 86140; 86431

== ENCOUNTER → 2022-07-10 02:42 | Outpatient (CLI) | payer MEDICARE, MEDICAID, SELFPAY ==
--- NOTE | 2022-07-10 08:00 | DI.RAD_ITS ---
Exam(s) XR CHEST 2V PA LATERAL EXAM: XR CHEST 2V PA LATERAL CLINICAL HISTORY: dyspnea, wheezing,asthma, copd overlap syndrome,j44.9 TECHNIQUE: 2D digital imaging was performed. COMPARISON: CR CHEST 2 VIEWS PA,LAT from 07/01/2017 FINDINGS: The heart is not enlarged. The lungs are clear and well expanded. No pleural effusion seen. Mediastin al contours appear intact. IMPRESSION: Normal chest. RADIATION DOSE DELIVERED: Total DLP
== END ==
PROVIDERS: PCP Nurse Practitioner Family; Visit Provider Student in an Organized Health Care Education/Training Program
DX: J44.9 Chronic obstructive pulmonary disease, unspecified (principal); R06.09 Other forms of dyspnea; R06.2 Wheezing
CPT/HCPCS: 71046

== ENCOUNTER 2022-07-10 04:06 | Outpatient (CLI) | payer MEDICARE, MEDICAID, SELFPAY ==
[2022-07-10] MEDS: Inhaler, Assist Device 1 EACH MC (16:08)
[2022-07-10] MEDS: Albuterol HFA 18 GM 200 PUFF INH IH (16:08)
--- NOTE | 2022-07-11 10:46 | W.PFT ---
Date of service: 07/10/22 Time of Service: 15:14 Pulmonary Function Test Result Requesting Provider Charles Indications: ACOS Interpretation Spirometry: There is severe airflow limitation. There is a significant bronchodilator response. The FVC is low. Lung Volumes: There is air trapping Diffusion Capacity: Normal diffusion Airway Pressure: Increased airways resistance. Impression Severe airflow obstruction with air trapping, a bronchodilator response and increased resistance with a normal diffusion. This could represent COPD (chronic bronchitis) or Asthma-COPD Overlap syndrome in the correct clinical setting. Clinical Correlation therefore is recommended.
--- NOTE | 2022-07-14 07:40 | W.PFT ---
Date of service: 07/10/22 Time of Service: 15:04 Pulmonary Function Test Result Requesting Provider Charles Indications: ACOS Note: 6 Minute Walk Test Distance walked: 900 feet Desaturations: None Heart rate changes: 99 at rest, 112 at exercise peak Recommendation: No supplemental O2 indicated. Radha Soto MD Pulmonary & Critical Care Medicine Clinical Correlation therefore is recommended.
== END 2022-07-10 04:07 | disposition home or self-care (01) ==
LOC: RT 04:06
PROVIDERS: PCP Nurse Practitioner Family; Visit Provider Student in an Organized Health Care Education/Training Program
DX: J44.1 Chronic obstructive pulmonary disease with (acute) exacerbation (principal); F17.210 Nicotine dependence, cigarettes, uncomplicated; Z14.8 Genetic carrier of other disease; J98.8 Other specified respiratory disorders
CPT/HCPCS: 94060; 94618; 94726; 94729

== ENCOUNTER 2022-10-13 02:50 | Outpatient (CLI) | payer MEDICARE, MEDICAID, SELFPAY ==
[2022-10-15 10:16] LABS: HBs Antibody, Quant <3.1 mIU/mL (See Note); Hep B Surface Ab Negative (See Note); Hepatitis B Core Antibody Negative (Negative); Hepatitis B Surface Antigen Negative (Negative)
[2022-10-15 10:22] LABS: Hepatitis C Ab w Rflx HCV PCR Negative (Negative)
[2022-10-15 10:36] LABS: HIV-1/2 Ag & Ab Screen Negative (Negative)
[2022-10-15 10:42] LABS: C3 Complement 172 mg/dL (81-157); C4 Complement 30 mg/dL (13-39)
[2022-10-15 11:04] LABS: Cyclic Citrullinated Peptide <2.5 U/mL (<5.0)
[2022-10-15 18:38] LABS: Scl 70 Antibodies, IgG <0.2 U
[2022-10-15 21:17] LABS: C4 Complement,Functional 68 U/mL (22 - 45); Complement, Total 73 U/mL (30-75)
[2022-10-17 09:24] LABS: Complement C1q, S 28 mg/dL (12 - 22)
[2022-10-17 13:12] LABS: SS-B (La) Ab, IgG 4.7 Units (<20.0)
[2022-10-17 14:33] LABS: SS-A Antibody 1.3 Units (<20.0)
[2022-10-17 15:05] LABS: Sm (Smith) Ab, IgG 2.3 Units (<20.0)
[2022-10-28 19:10] LABS: Anti-EJ Ab Negative (Negative); Anti-Jo-1 Ab <20 Units (<20); Anti-Ku Ab Negative (Negative); Anti-MDA-5 Ab (CADM-140) <20 Units (<20); Anti-Mi-2-Ab Negative (Negative); Anti-NXP-2 (P140) Ab <20 Units (<20); Anti-OJ Ab Negative (Negative); Anti-PL-12 Ab Negative (Negative); Anti-PL-7 Ab Negative (Negative); Anti-PM/Scl-100 Ab <20 Units (<20); Anti-SRP Ab Negative (Negative); Anti-SS-A 52kD Ab, IgG <20 Units (<20); Anti-TIF-1gamma Ab <20 Units (<20); Anti-U1 RNP Ab <20 Units (<20); Anti-U2 RNP Ab Negative (Negative); Anti-U3 RNP (Fibrillarin) Negative (Negative)
== END 2022-10-13 02:51 | disposition home or self-care (01) ==
LOC: LBO 02:50
PROVIDERS: PCP Nurse Practitioner Family; Visit Provider Student in an Organized Health Care Education/Training Program
DX: R23.1 Pallor (principal)
CPT/HCPCS: 36415; 83516; 86161; 86200; 86235; 86704; 86706; 86803; 87340; 87389; 82595; 86160; 86162

== ENCOUNTER 2022-11-26 17:49 | Outpatient (REF) | payer MEDICARE, MEDICAID, SELFPAY ==
[2022-11-26 21:14] LABS: HCT 51.3 % (36.0-46.0); HGB 17.5 g/dL (11.2-15.7); MCH 32.4 pg (27.0-33.0); MCHC 34.1 % (32.0-36.0); MCV 95 fL (80-95); MPV 10.7 fL (8.0-11.0); Platelet Count 182 10^3/uL (130-400); RDW 12.3 % (11.7-14.6); RDW-SD 43.1 fL; WBC 8.73 10^3/uL (4.4-10.8)
[2022-11-26 21:32] LABS: ALT 27 U/L (14-59); AST 20 U/L (15-37); Albumin 4.3 g/dL (3.4-5.0); Alkaline Phosphatase 66 U/L (46-116); Anion Gap 8.8 mmol/L (3-11); BUN 15 mg/dL (7-18); Bilirubin, Total 0.7 mg/dL (0.2-1.0); CO2 29.2 mmol/L (21.0-32.0); CREATININE 0.7 mg/dL (0.55-1.02); Calcium 8.8 mg/dL (8.5-10.1); Chloride 101 mmol/L (98-107); Estimated GFR 109.98 (mL/min/1.73m2); Glucose 88 mg/dL (74-106); Potassium 4.6 mmol/L (3.5-5.1); Sodium 139 mmol/L (136-145); Total Protein 7.7 g/dL (6.4-8.2)
== END 2022-11-26 17:50 | disposition home or self-care (01) ==
LOC: NCHCN 17:49
PROVIDERS: PCP Nurse Practitioner Family; Visit Provider Nurse Practitioner Family
DX: J44.9 Chronic obstructive pulmonary disease, unspecified (principal)
CPT/HCPCS: 80053; 85027

== ENCOUNTER 2023-06-12 07:55 | Outpatient (CLI) | payer MEDICARE, MEDICAID, SELFPAY ==
--- NOTE | 2023-06-12 07:45 | RT.EKG_ITS ---
APPROVED REPORT Exam: Resting ECG Reason for Exam: edema, chest pain Patient Location: O HR:89 bpm ECG Measurements Heart Rate 89 AXIS AR 160 P 47 QRSd 86 QRS -58 QT 360 T 58 QTc 439 Conclusion Sinus rhythm...normal P axis, V-rate 50- 99 Left axis deviation...QRS axis (-30,-90) Low voltage Consider anterior infarct...Q >30mS in V2-V5
== END 2023-06-12 07:56 | disposition home or self-care (01) ==
LOC: DI.CARD 07:56
PROVIDERS: PCP Nurse Practitioner Family; Visit Provider Internal Medicine Cardiovascular Disease
DX: R07.9 Chest pain, unspecified (principal); R60.9 Edema, unspecified
CPT/HCPCS: 93010

== ENCOUNTER → 2023-06-12 12:58 | Outpatient (BNVA) | payer MEDICARE, MEDICAID, SELFPAY | PROVIDERS: PCP Nurse Practitioner Family; Referring Provider Nurse Practitioner Family; Visit Provider Internal Medicine Cardiovascular Disease | DX: J44.9 Chronic obstructive pulmonary disease, unspecified (principal); F17.210 Nicotine dependence, cigarettes, uncomplicated; E66.2 Morbid (severe) obesity with alveolar hypoventilation | CPT/HCPCS: 93005; 99203; 99214 ==

== ENCOUNTER 2023-09-04 22:21 | Outpatient (REF) | payer MEDICARE, MEDICAID, SELFPAY ==
[2023-09-04 21:11] LABS: Bilirubin Negative (Negative); Blood Trace-intact (Negative); Clarity Clear (Clear); Glucose Negative (Negative); Ketones Negative (Negative); Leukocyte Esterase Negative (Negative); Nitrite Negative (Negative); Specific Gravity 1.025 (1.005-1.025); Urobilinogen 0.2 mg/dL (Up to 0.2)
[2023-09-04 21:24] LABS: Epithelial Cells Many HPF (Negative); RBC 0-2 HPF (0-2)
[2023-09-04 21:25] LABS: Bacteria Rare HPF (Negative); C & S Indicated? No/Sq. Contamination; Crystals Negative HPF (Negative); Mucus Negative (Negative)
== END 2023-09-04 22:22 | disposition home or self-care (01) ==
LOC: NCHCN 22:21
PROVIDERS: PCP Nurse Practitioner Family; Visit Provider Nurse Practitioner Family
DX: R35.0 Frequency of micturition (principal)
CPT/HCPCS: 81003; 81015

== ENCOUNTER 2023-10-19 16:12 | Outpatient (REF) | payer MEDICARE, MEDICAID, SELFPAY ==
[2023-10-19 21:52] LABS: Abs Immature Grans 0.04 10^3/uL (0.0-0.06); Absolute Basophil Count 0.08 10^3/uL (0.0-0.2); Absolute Eosinophil Count 0.04 10^3/uL (0.0-0.7); Absolute Lymphocyte Count 2.46 10^3/uL (1.2-3.4); Absolute Monocyte Count 0.46 10^3/uL (0.1-0.8); Absolute Neutrophil Count 7.12 10^3/uL (1.2-6.7); Basophils % 0.8; Eosinophils % 0.4; HCT 51.7 % (36.0-46.0); HGB 16.9 g/dL (11.2-15.7); Immature Grans % 0.4; Lymphocytes % 24.1; MCH 31.9 pg (27.0-33.0); MCHC 32.7 % (32.0-36.0); MCV 98 fL (80-95); MPV 10.2 fL (8.0-11.0); Monocytes % 4.5; Neutrophils % 69.8; Platelet Count 210 10^3/uL (130-400); RBC 5.29 10^6/uL (3.93-5.22); RDW 13.4 % (11.7-14.6); RDW-SD 48.6 fL
[2023-10-19 22:26] LABS: Calculated LDL 258 mg/dL (<100); Cholesterol 343 mg/dL (<200); HDL Cholesterol 49 mg/dL (40-60); NT-proBNP 43 pg/mL (<300); TSH (W/Ref FT4) 62.19 uIU/mL (0.36-3.74); Triglyceride 181 mg/dL (<150)
[2023-10-19 22:52] LABS: FREE T4 0.27 ng/dL (0.76-1.46)
[2023-10-21 13:10] LABS: ALT 49 U/L (14-59); AST 26 U/L (15-37); Albumin 3.9 g/dL (3.4-5.0); Alkaline Phosphatase 60 U/L (46-116); Anion Gap 8.8 mmol/L (3-11); BUN 12 mg/dL (7-18); Bilirubin, Total 0.5 mg/dL (0.2-1.0); CO2 31.2 mmol/L (21.0-32.0); CREATININE 0.9 mg/dL (0.55-1.02); Calcium 9.3 mg/dL (8.5-10.1); Chloride 101 mmol/L (98-107); Estimated GFR 80.84 (mL/min/1.73m2); Glucose 97 mg/dL (74-106); Potassium 4.6 mmol/L (3.5-5.1); Sodium 141 mmol/L (136-145); Total Protein 7.4 g/dL (6.4-8.2)
== END 2023-10-19 16:13 | disposition home or self-care (01) ==
LOC: NCHCN 16:12
PROVIDERS: PCP Nurse Practitioner Family; Visit Provider Family Medicine
DX: E03.9 Hypothyroidism, unspecified (principal); R60.9 Edema, unspecified
CPT/HCPCS: 80053; 80061; 83880; 84439; 84443; 85025

== ENCOUNTER → 2023-10-22 02:26 | Outpatient (CLI) | payer MEDICARE, MEDICAID, SELFPAY ==
--- NOTE | 2023-10-22 | DI.CT_ITS ---
Exam(s) CT ABDOMEN PELVIS W EXAM: CT ABDOMEN PELVIS W CLINICAL HISTORY: EDEMA R60.0. TECHNIQUE: Imaging Protocol: Axial computed tomography images with coronal and sagittal reformatted images were created and reviewed CONTRAST MATERIAL: Intravenous: Omnipaque-350 100cc Oral: Yes. Oral contrast was also administered for bowel opacification. COMPARISON: CR XR CHEST 2V PA LATERAL from 07/10/2022 FINDINGS: VISUALIZED LUNG BASES: No nodules nor pleural effusions evident. However, there is a significant per icardial effusion evident. Maximum thickness of the pericardial effusion is difficult to determine a s only part of the heart is included in the field of view. Maximum thickness on these images is 9 mm . ABDOMEN: There is no ascites. LIVER: There are no focal hepatic lesions evident. No dilated intrahepatic ducts. GALLBLADDER/BILIARY: No obvious gallbladder pathology. CBD is not dilated. PANCREAS: No evidence of pancreatic mass nor dilatation of the pancreatic duct. SPLEEN: Spleen is not enlarged. No obvious intrasplenic lesions. Splenic and portal veins are paten t. ADRENALS: There are no significant adrenal masses. KIDNEYS:No cysts evident. No solid renal masses. No calculi nor hydronephrosis.. ABDOMINAL AORTA: Abdominal aorta is not enlarged. LYMPH NODES:There is no retroperitoneal nor paraaortic adenopathy. ABDOMINAL WALL: No evidence of significant anterior abdominal wall nor inguinal hernia. GI: There is no evidence of bowel obstruction, free air, nor abscess. Symmetrical skin thickening and subcutaneous edema over the anterior abdominal wall pannus noted. Co nsistent with cellulitis pattern below the umbilical level. There is no drainage fluid collection in the subcutaneous fat. PELVIS: GI: No evidence of appendicitis.No evidence of sigmoid diverticulitis. LYMPH NODES: There is no intrapelvic nor inguinal adenopathy. REPRODUCTIVE: Uterus and ovaries appear unremarkable. No free fluid in the pelvis. URINARY BLADDER: No calculi nor obvious masses evident OSSEOUS: No fractures and no significant osseous lesions. IMPRESSION: 1. Uppermost images of this abdominal study reveal pericardial effusion which is difficult to assess because only partly included in the field of view. This pericardial effusion is somewhat atypical as it appears somewhat hazy. Further imaging of the pericardium is required 2. There are no pleural effusions. 3. Mild haziness of the mesentery but no true ascites. No bowel obstruction, free air, nor abscess. 4. There is a symmetrical cellulitis pattern in the skin and subcutaneous tissues over the pannus of the anterior abdominal wall pelvis below the umbilical level. There is no drainable fluid collection in the subcutaneous layer. RADIATION DOSE DELIVERED: 1,752.75mGy.cm Total DLP DATA REPOSITORY: All CT scans at this facility are submitted to the National Radiology Data Registry (NRDR) Dose Index Registry (DIR) with the [employer] (ACR). RADIATION OPTIMIZATION: All CT scans at this facility use at least one of these dose optimization te chniques: automated exposure control; mA and/or kV adjustment per patient size (includes targeted exa ms where dose is matched to clinical indication); or iterative reconstruction.
[2023-10-22] MEDS: Barium Sulfate 2% W/V-Berry Smoothie 450 ML BTL 900 ML PO (09:59)
[2023-10-22 10:16] LABS: ALT 45 U/L (14-59); AST 20 U/L (15-37); Albumin 3.5 g/dL (3.4-5.0); Alkaline Phosphatase 57 U/L (46-116); Anion Gap 6.3 mmol/L (3-11); BUN 10 mg/dL (7-18); Bilirubin, Total 0.6 mg/dL (0.2-1.0); CO2 31.7 mmol/L (21.0-32.0); CREATININE 0.8 mg/dL (0.55-1.02); Calcium 8.6 mg/dL (8.5-10.1); Chloride 100 mmol/L (98-107); Estimated GFR 93.12 (mL/min/1.73m2); Glucose 108 mg/dL (74-106); Potassium 3.9 mmol/L (3.5-5.1); Sodium 138 mmol/L (136-145); Total Protein 7.5 g/dL (6.4-8.2)
[2023-10-22] MEDS: Omnipaque 350 MG/ML 500 ML BTL-Imaging package 100 ML IJ (11:29)
[2023-10-22] MEDS: Normal Saline - Diluent 50 ML VIAL IJ (11:30)
== END ==
PROVIDERS: PCP Nurse Practitioner Family; Visit Provider Nurse Practitioner Family
DX: R60.1 Generalized edema (principal)
CPT/HCPCS: 80053; 74177

== ENCOUNTER 2023-10-23 13:22 | Emergency (ER) | payer MEDICARE, MEDICAID, SELFPAY ==
[2023-10-23] VITALS (10 sets, daily range): BP systolic 147; BP diastolic 120; PULSE 79–99; RESP 16–20; O2SAT 88
--- NOTE | 2023-10-23 13:15 | RT.EKG_ITS ---
APPROVED REPORT Exam: Resting ECG Reason for Exam: hypoxia Patient Location: E HR:89 bpm ECG Measurements Heart Rate 89 AXIS MO 159 P 50 QRSd 82 QRS -60 QT 359 T 64 QTc 437 Conclusion Sinus rhythm...normal P axis, V-rate 60- 99 Probable inferior infarct, old...Q>35mS, II III aVF Anterior infarct, old...Q >40mS, abnormal ST-T, V2-V5
--- NOTE | 2023-10-23 13:45 | DI.RAD_ITS ---
Exam(s) XR CHEST 2V PA LATERAL EXAM: XR CHEST 2V PA LATERAL CLINICAL HISTORY: pulm edema, pericardial effusion TECHNIQUE: 2D digital imaging was performed of the chest. Two images were obtained. PA and lateral views were obtained. COMPARISON: CR XR CHEST 2V PA LATERAL from 07/10/2022 FINDINGS: MEDIASTINUM: Normal. HEART: The heart is mildly enlarged compared to the prior examination consistent with pericardial eff usion. PULMONARY VASCULATURE: Normal. LUNGS: Clear. PLEURAL SPACE: No pleural effusion or pneumothorax. BONE:Within normal limits for the patient's age. OTHER FINDINGS:Normal. IMPRESSION: 1. Heart size is slightly larger compared to the examination from 07/10/2022 consistent with the sarah ent's known pericardial effusion. 2. Otherwise unremarkable examination. DATA REPOSITORY: RADIATION DOSE DELIVERED:
--- NOTE | 2023-10-23 13:45 | DI.US_ITS ---
APPROVED REPORT EXAM: Comprehensive 2D, Doppler, and color-flow Echocardiogram Patient Location: ER [facility] Dyer Helper: Elsi Mclaughlin RDCS Rhythm: NSR Indications: Pericardial effusion, pulmonary edema. Echo Enhancing Agent Indication: Endocardial border delineation Agent(s) / Amount(s) Used: Definity 2.0 cc Comments: Contrast study was performed with 1 IV injection of 2cc of diluted definity. Other Information Study Quality: Technically Limited Conclusion A technically very limited study LA mildly dilated, other chambers normal sizes. Circumferential pericardial effusion,small to moderate posteriorly,small anteriorly. Not close to amaral ponade. Fibrinous content suggests chronicity Normal LV function,EF65%.Normal RV function. Valves not optimally visualized, but no significant valvular disease noted. Wall motion Left Ventricle The left ventricle is normal size. The left ventricular systolic function is normal. The left ventric ular ejection fraction is within the normal range. Moderate concentric left ventricular hypertrophy. There is normal LV segmental wall motion. The left ventricular diastolic function is normal. There is no ventricular septal defect visualized. LVEF is 65-70%. Right Ventricle The right ventricle is normal size. The right ventricular systolic function is normal. Atria The left atrium size is normal. The right atrium size is normal. Limited subcostal views, but no evid ence of PFO, ASD, or VSD. Aortic Valve Probably trileaflet. The aortic valve appears normal in thickness. There is no aortic valvular stenos is. No aortic regurgitation is present. Mitral Valve The mitral valve is normal in structure. No evidence of mitral valve stenosis. There is no mitral [place] ve regurgitation noted. Tricuspid Valve The tricuspid valve is normal in structure. There is no tricuspid valve stenosis. Trace tricuspid reg urgitation. Unable to assess PA pressure. Pulmonic Valve Pulmonic valve is not well visualized. There is no pulmonic valvular stenosis. There is no pulmonic v alvular regurgitation. Great Vessels The aortic root is normal in size. The ascending aorta is normal in size. Aortic arch is normal in ca liber. IVC is normal in size and collapses >50% with inspiration. Pericardium mild to moderate circumferential pericardial effusion. Pericardial effusion: 12mm. Respiratory mitral inflow pattern is exaggerated. Technically difficult study with suboptimal views, there is no eviden ce of cardiac tamponade. But there is 25% variation of the mitral valve inflow only and exaggerated m otion of the right atrium which could be suggestive of pre tamponade. 2D Dimensions IVSD d PLAX 1.60 cm F: 0.6-1.0 Ao Root d 2.56 cm F: 2.7 - 3.3 LVPW d PLAX 1.30 cm F: 0.6 - 1.0 Ao Asc Diam d 2.87 cm F: 2.3 - 3.1 LVID d PLAX 3.97 cm F: 3.8 - 5.2 Prox Ao Arch 2.2 cm LVDs 2.40 cm F: 2.2 - 3.5 IVC Diam exp d SLAX 1.9 cm LV EF Teichholz 70.5 % FS 39.42 % LV EDV (Teich) 68.8 mL LV ESV (Teich) 20.3 mL M-Mode TAPSE 2.41 cm (M/F) >1.7 LA Volume LA Length A4C 5.1 cm LA Length A2C 4.5 cm LA Area A4C s 16.55 cm2 LA Area A2C s 10.88 cm2 LA Vol A4C A-L 45.52 mL LA Vol A2C A-L 22.10 mL LA Vol Biplane A-L 33.6 mL LA Vol/BSA A4C A-L LA Vol/BSA A2C A-L LA Vol/BSA BP A-L 15.0 mL/m2 LA Vol A4C MOD 42.3 mL LA Vol A2C MOD 21.9 mL LA Vol BP MOD 32.1 mL RA Volume RA Area A4C 12.5 cm2 RA ESV A4C (A-L) 29.3mL RA Vol/BSA A4C A-L RA Length A4C 4.6 cm RA ESV A4C (MOD) 29.8mL LV Diastology MV E' medial 0.074 (>0.07 m/s) MV E Vmax 1.29 (0.4-1.3 m/s) MV E/E' MED 17.41 (<14) MV A Vmax 1.05 (0.4-1.3 m/s) MV E' lateral 0.119 (>0.1 m/s) E/A Ratio 1.2 MV E/E' LAT 10.82 (<14) MV E' Average 0.096 m/s MV E/E'(average) 13.35 Aortic Valve LVOT Vmax 1.38 m/s LVOT Peak Grad 7.6 mmHg LVOT VTI 0.239 m LVOT Mean Grad 4.4 mmHg LVOT SV 56.61 mL LVOT Diam s 1.70 cm Mitral Valve MV DT 243 (160-240 msec) MV Vmax TIPS 1.34 m/s MV Mean Grad 3.2 (<2mmHg) MV VTI 0.352 m Tricuspid Valve RA Pressure 3.00 mmHg TV S' 0.17 m/s
--- NOTE | 2023-10-23 14:41 | ED.GENADUL_ITS ---
HPI General Date/Time Provider Initiated Documentation: 10/23/23 13:24 . HPI Narrative: 43-year-old female history of obesity, alpha-1 antitrypsin, COPD, presents referred in by primary care physician after being found to have pericardial effusion on CT scan, patient being evaluated for generalized edema including her legs and abdomen, chronic shortness of breath intermittent home O2 use; no cough no fever. No chest pain no palpitations no syncope Related Data Home Medications Medication Instructions Recorded Confirmed albuterol sulfate 2.5 mg/0.5 mL 2.5 mg inhalation PRN PRN 10/13/17 10/23/23 solution for nebulization fluticasone propionate 230 2 puff inhalation BID #12 grams 06/30/22 10/23/23 mcg-salmeterol 21 mcg/actuation HFA inhaler (Advair HFA) magnesium 250 mg tablet 500 mg PO DAILY 05/14/23 10/23/23 furosemide 40 mg tablet 20 mg PO DAILY 05/19/23 10/23/23 hydrocortisone 0.5 % topical cream 1 applic topical BID PRN 05/19/23 10/23/23 meloxicam 15 mg tablet 15 mg PO DAILY 05/19/23 10/23/23 bupropion HCl 300 mg 24 hr tablet, 300 mg PO DAILY 06/12/23 10/23/23 extended release (Wellbutrin XL) clonazepam 1 mg tablet 1 mg PO TID 06/12/23 10/23/23 fluconazole 100 mg tablet 100 mg PO DAILY #7 tabs 06/29/23 10/23/23 tiotropium bromide 2.5 See Rx Instructions .Route 08/03/23 10/23/23 mcg/actuation mist for inhalation .COMPLEX #4 grams (Spiriva Respimat) furosemide 40 mg tablet 40 mg PO DAILY #30 tabs 10/23/23 levothyroxine 75 mcg tablet 75 mcg PO DAILY 10/23/23 10/23/23 nicotine (polacrilex) 2 mg buccal 2 mg buccal Q2H PRN 10/23/23 10/23/23 lozenge Previous Rx's Medication Instructions Recorded fluticasone propionate 230 2 puff inhalation BID #12 grams 06/30/22 mcg-salmeterol 21 mcg/actuation HFA inhaler (Advair HFA) fluconazole 100 mg tablet 100 mg PO DAILY #7 tabs 06/29/23 tiotropium bromide 2.5 See Rx Instructions .Route 08/03/23 mcg/actuation mist for inhalation .COMPLEX #4 grams (Spiriva Respimat) furosemide 40 mg tablet 40 mg PO DAILY #30 tabs 10/23/23 Allergies Allergy/AdvReac Type Severity Reaction Status Date / Time Penicillins Allergy Intermediate Hives Verified 10/23/23 13:32 duloxetine [From Cymbalta] Allergy Unknown Verified 10/23/23 13:32 house dust Allergy Verified 10/23/23 13:32 ropinirole [From Requip] AdvReac Intermediate hallucinate Verified 10/23/23 13:32 / confusion General Stated Complaint: SOB ROYAL: 3 Review of Systems Narrative: Review of Systems Constitutional: negative Eyes: negative ENT: negative Cardiovascular: Edema Respiratory: negative Gastrointestinal: negative : negative Musculoskeletal: negative Skin: negative Neurologic: negative Psych: negative Exam Narrative Exam Narrative: Physical Examination General: alert, awake, cooperative, resting comfortably, no acute distress HEENT: normocephalic, atraumatic; PERRL, EOM intact, conjunctiva normal; no nasal discharge; moist mucous membranes, oral and pharyngeal mucosa normal, tolerating secretions Neck: supple, trachea midline; full ROM Chest: normal to inspection Respiratory: normal respiratory effort, speaking in full sentences, clear to auscultation, no wheezing, rales or rhonchi Cardiac: regular rate, regular rhythm, S1S2 intact, no murmurs rubs or gallops GI: abdomen soft, non-tender, non-distended; no palpable mass or hepatosplenomegaly Skin: no lesions, rashes or trauma appreciated Neuro: AAOx3, normal speech, moving all extremities Extremities: Pitting edema to level of molina bilaterally Psych: Appropriate mood and affect Course Vital Signs Vital signs: Vital Signs Pulse 99 H 10/23/23 13:30 Respiratory Rate 10/23/23 13:30 Blood Pressure 147/120 H 10/23/23 13:30 Pulse Oximetry 88 L 10/23/23 13:30 Pulse 99 H 10/23/23 13:30 Respiratory Rate 20 10/23/23 13:40 Respiratory Effort Short of Breath, Labored 10/23/23 13:40 Respiratory Depth Normal 10/23/23 13:40 Respiratory Pattern Normal 10/23/23 13:40 Blood Pressure 147/120 H 10/23/23 13:30 Blood Pressure Position Sitting 10/23/23 13:30 Pulse Oximetry 88 L 10/23/23 13:30 Oxygen Delivery Method Room Air 10/23/23 13:30 Oxygen Flow Rate 0 10/23/23 13:30 Pain Level 8 10/23/23 13:30 Medical Decision Making 42-year-old female referred in by PCP for evaluation of pericardial effusion, patient was being evaluated for generalized edema and has been worsening over the last several months, history of alpha-1 antitrypsin/COPD on home O2, noted to have pitting edema to level of shins bilaterally, B-lines throughout lung barrera on bedside ultrasound, also moderate pericardial effusion without evidence of tamponade seen on the bedside ultrasound, patient hypertensive tachycardic on arrival, saturating high 80s to mid 90s on room air, speaking full sentences no acute distress. Recently diagnosed with hypothyroidism however has not started her levothyroxine, consider component myxedema versus new onset CHF versus hypoalbuminemia versus ACS lower suspicion for infectious causes such as myopericarditis low suspicion for aortic pathology or PE must also consider component of renal dysfunction, will obtain basic labs chest x-ray BNP troponin, stat echocardiogram, trial of Lasix close reassessment of symptoms. 16: 46 patient feeling much better after Lasix and levothyroxine administration. Resting comfortably no acute distress. Speaking full sentences. Echocardiogram showing small to moderate pericardial effusion without evidence of tamponade. Patient be started on Lasix on outpatient basis has her levothyroxine at home that she will continue to take. Patient to follow-up close with her primary care physician. Given return precautions for any worsening symptoms. 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 (Acute) Tobacco abuse (Acute) Urge incontinence (Acute) Hearing loss (Acute) right ear Dyspareunia (Acute) Edema (Acute) SOB (shortness of breath) (Acute) Dog bite of left thigh with infection (Acute) Dog bite (Acute) Cellulitis of left thigh (Acute) Chronic anxiety (Acute) Otorrhea of both ears (Acute) Smoker (Acute) Hoarseness of voice (Acute) Bilateral hearing loss (Acute) Central perforation of tympanic membrane, left ear (Acute) Medical History Abdominal pain Chest pain Chills (without fever) Chronic obstructive pulmonary disease Depression with anxiety Dyspepsia Easy bruising Hip pain History of posttraumatic stress disorder (PTSD) Human papillomavirus Impaired swallowing Lower back pain 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 Pleuritic chest pain Skin lesion Suicidal ideation Thrush, oral Unresolved grief Wheezing Family History Mother Asthma COPD (chronic obstructive pulmonary disease) Maternal Grandmother COPD (chronic obstructive pulmonary disease) Lung cancer Aunt COPD (chronic obstructive pulmonary disease) Aunt COPD (chronic obstructive pulmonary disease) Social History Smoking/Tobacco Use Status: Current every day Tobacco Type: cigarettes Smoking packs per day: 1.5 Smoking cigarettes per day: 30.0 Smoking risk assessment performed?: Yes Alcohol Intake: former Drug use: Daily Substance use type: marijuana Do you feel safe at home: Yes Do you feel safe in your relationship?: Yes Discharge Plan Disposition Patient Disposition: Home Condition: Improving Discharge Details Clinical Impression: Edema, Hypothyroidism, Pericardial effusion Primary Care Provider: Candelaria Cedeño ED Provider: Jose Ferrer Home Meds and New Rx's Prescriptions: New furosemide 40 mg tablet 40 mg PO DAILY Qty: 30 0RF No Action fluticasone propion-salmeterol [Advair HFA] 230-21 mcg/actuation HFA aerosol inhaler 2 puff inhalation BID Qty: 12 12RF magnesium 250 mg tablet 500 mg PO DAILY furosemide 40 mg tablet 20 mg PO DAILY meloxicam 15 mg tablet 15 mg PO DAILY hydrocortisone 0.5 % cream 1 applic topical BID PRN fluconazole 100 mg tablet 100 mg PO DAILY Qty: 7 0RF Rx Instructions: take one tablet daily Spiriva Respimat 2.5 mcg/actuation mist See Rx Instructions .ROUTE .COMPLEX Qty: 4 12RF Dose Instruction: INHALE TWO PUFFS BY MOUTH EVERY DAY Rx Instructions: INHALE TWO PUFFS BY MOUTH EVERY DAY bupropion HCl [Wellbutrin XL] 300 mg tablet extended release 24 hr 300 mg PO DAILY Patient Comments: clonazepam 1 mg tablet 1 mg PO TID Rx Instructions: Per pt takes TID (06/30/22) albuterol sulfate 2.5 MG/0.5 ML solution for nebulization 2.5 mg Inhalation PRN PRN levothyroxine 75 mcg tablet 75 mcg PO DAILY nicotine (polacrilex) 2 mg lozenge 2 mg buccal Q2H PRN Patient Comments: TAKE ONE TABLET BUCCALLY EVERY 2 HOURS NEEDED FOR SMOKING CESSATION Discharge Instructions Instructions: Hypothyroidism (ED), Pericardial Effusion (ED) Additional Instructions: Please follow-up closely with your primary care physician. Return to the emergency department for any worsening symptoms.
[2023-10-23 15:18] LABS: Abs Immature Grans 0.03 10^3/uL (0.0-0.06); Absolute Basophil Count 0.07 10^3/uL (0.0-0.2); Absolute Eosinophil Count 0.07 10^3/uL (0.0-0.7); Absolute Lymphocyte Count 2.49 10^3/uL (1.2-3.4); Absolute Monocyte Count 0.51 10^3/uL (0.1-0.8); Absolute Neutrophil Count 6.46 10^3/uL (1.2-6.7); Basophils % 0.7; Eosinophils % 0.7; HCT 51.4 % (36.0-46.0); HGB 17.3 g/dL (11.2-15.7); Immature Grans % 0.3; Lymphocytes % 25.9; MCH 32.6 pg (27.0-33.0); MCHC 33.7 % (32.0-36.0); MCV 97 fL (80-95); MPV 9.1 fL (8.0-11.0); Monocytes % 5.3; Neutrophils % 67.1; Platelet Count 242 10^3/uL (130-400); RDW 13.3 % (11.7-14.6); WBC 9.63 10^3/uL (4.4-10.8)
[2023-10-23 15:31] LABS: PTT Activated 28.6 sec (23.6-32.8)
[2023-10-23 15:46] LABS: ALT 35 U/L (14-59); AST 17 U/L (15-37); Albumin 3.5 g/dL (3.4-5.0); Alkaline Phosphatase 56 U/L (46-116); Anion Gap 6.7 mmol/L (3-11); BUN 14 mg/dL (7-18); Bilirubin, Total 0.5 mg/dL (0.2-1.0); CO2 33.3 mmol/L (21.0-32.0); Calcium 8.7 mg/dL (8.5-10.1); Chloride 100 mmol/L (98-107); Estimated GFR 71.24 (mL/min/1.73m2); Glucose 89 mg/dL (74-106); Magnesium 1.8 mg/dL (1.8-2.4); NT-proBNP 55 pg/mL (<300); Sodium 140 mmol/L (136-145); TSH (W/Ref FT4) 95.25 uIU/mL (0.36-3.74); Total Protein 7.5 g/dL (6.4-8.2); Troponin I < 50 ng/L (< or =60)
[2023-10-23 16:02] LABS: FREE T4 0.23 ng/dL (0.76-1.46)
[2023-10-23] MEDS: Perflutren Lipid Microspheres 1.5 ML VIAL IVP (16:18)
== END 2023-10-23 17:01 | disposition home or self-care (01) ==
PROVIDERS: Emergency Provider Emergency Medicine; PCP Nurse Practitioner Family
DX: R60.9 Edema, unspecified (principal); R06.02 Shortness of breath; I31.39 Other pericardial effusion (noninflammatory); J44.9 Chronic obstructive pulmonary disease, unspecified; E03.9 Hypothyroidism, unspecified; F17.210 Nicotine dependence, cigarettes, uncomplicated; Z99.81 Dependence on supplemental oxygen
CPT/HCPCS: 80053; 93005; 96374; 99284; C8929; 71046; 83735; 83880; 84439; 84443; 84484; 85025; 85610; 85730; 93010

== ENCOUNTER 2023-10-28 12:01 | Outpatient (REF) | payer MEDICARE, MEDICAID, SELFPAY ==
[2023-10-28 15:06] LABS: COMMENT (LAB VIEW ONLY) 189.16 mg/dL; PROTEIN 450.4 mg/dL; Prot/Crea Ur Ratio 2.38
== END 2023-10-28 12:02 | disposition home or self-care (01) ==
LOC: NCHCN 12:01
PROVIDERS: PCP Nurse Practitioner Family; Visit Provider Family Medicine
DX: R10.9 Unspecified abdominal pain (principal)
CPT/HCPCS: 82565; 84156

== ENCOUNTER 2023-11-06 11:53 | Outpatient (CLI) | payer MEDICARE, MEDICAID, SELFPAY | END 2023-11-06 11:54 | disposition home or self-care (01) | PROVIDERS: PCP Nurse Practitioner Family; Visit Provider Family Medicine | DX: R00.1 Bradycardia, unspecified (principal) | CPT/HCPCS: 93246 ==

== ENCOUNTER → 2023-11-13 00:15 | Outpatient (CLI) | payer MEDICARE, MEDICAID, SELFPAY ==
--- NOTE | 2023-11-13 | DI.US_ITS ---
Exam(s) US THYROID EXAM: US THYROID CLINICAL HISTORY: HYPOTHYROIDISM, E03.9. TECHNIQUE: Ultrasound thyroid performed using standard protocol. COMPARISON: No exams were available for comparison FINDINGS: ISTHMUS: 6.2 mm RIGHT LOBE: Size: 6.3 x 3.3 x 2.9 cm Echogenicity: The thyroid gland is diffusely heterogeneous without definite discrete nodule. Vascularity: Normal. Nodules: None. LEFT LOBE: Size: 5.4 x 2.9 x 2.6 cm Echogenicity: Normal. Vascularity: Normal. Nodules: None. OTHER FINDINGS: None. IMPRESSION: Diffuse thyroid heterogeneity suggesting diffuse thyroid disease/thyroiditis. Please correlate clini eleazar. DATA REPOSITORY:
== END ==
PROVIDERS: PCP Nurse Practitioner Family; Visit Provider Family Medicine
DX: E03.9 Hypothyroidism, unspecified (principal); E06.5 Other chronic thyroiditis
CPT/HCPCS: 76536

== ENCOUNTER 2023-11-30 08:24 | Outpatient (CLI) | payer MEDICARE, MEDICAID, SELFPAY ==
--- NOTE | 2023-11-30 09:03 | W.CARDEVENT ---
Date of service: 11/30/23 Time of Service: 09:03 Cardiac Event Recorder Referring Provider:: Trudi Del Real Indications:: Bradycardia Cardiac Event Note: This is a cardiac event monitor. Patient was monitored for 8 days and 5 hours Rhythm throughout was sinus with an average heart rate of 85. Minimum was 51, maximum 121 There were very rare isolated atrial and ventricular ectopic beats. There was no atrial fibrillation, no high-grade AV block, no pauses greater than 3 seconds Symptoms were reported which had no correlation to any dysrhythmia
== END 2023-11-30 08:25 | disposition home or self-care (01) ==
LOC: CARDOPNVT 08:24
PROVIDERS: PCP Nurse Practitioner Family; Visit Provider Internal Medicine Cardiovascular Disease
DX: R00.1 Bradycardia, unspecified (principal)
CPT/HCPCS: 93248

== ENCOUNTER 2023-12-01 04:21 | Outpatient (CLI) | payer MEDICARE, MEDICAID, SELFPAY ==
[2023-12-01 15:18] LABS: Anion Gap 7.3 mmol/L (3-11); BUN 20 mg/dL (7-18); CO2 32.7 mmol/L (21.0-32.0); Calcium 9.5 mg/dL (8.5-10.1); Chloride 101 mmol/L (98-107); Estimated GFR 71.24 (mL/min/1.73m2); Glucose 110 mg/dL (74-106); Potassium 3.8 mmol/L (3.5-5.1); Sodium 141 mmol/L (136-145); TSH (W/Ref FT4) 39.68 uIU/mL (0.36-3.74)
[2023-12-01 15:47] LABS: FREE T4 0.67 ng/dL (0.76-1.46)
== END 2023-12-01 04:22 | disposition home or self-care (01) ==
PROVIDERS: PCP Nurse Practitioner Family; Visit Provider Family Medicine
DX: E03.9 Hypothyroidism, unspecified (principal); R79.89 Other specified abnormal findings of blood chemistry
CPT/HCPCS: 36415; 80048; 84439; 84443

== ENCOUNTER 2024-01-12 05:16 | Outpatient (CLI) | payer MEDICARE, MEDICAID, SELFPAY ==
[2024-01-12 15:08] LABS: COMMENT (LAB VIEW ONLY) 88.94 mg/dL; PROTEIN 143.3 mg/dL; Prot/Crea Ur Ratio 1.61
[2024-01-12 15:15] LABS: FREE T4 0.98 ng/dL (0.76-1.46); TSH 18.46 uIU/Ml (0.36-3.74)
== END 2024-01-12 05:17 | disposition home or self-care (01) ==
PROVIDERS: PCP Nurse Practitioner Family; Visit Provider Family Medicine
DX: E03.9 Hypothyroidism, unspecified (principal)
CPT/HCPCS: 36415; 82565; 84156; 84439; 84443

== ENCOUNTER → 2024-01-15 00:07 | Outpatient (CLI) | payer MEDICARE, MEDICAID, SELFPAY ==
--- NOTE | 2024-01-15 14:39 | DI.US_ITS ---
APPROVED REPORT EXAM: Comprehensive 2D, Doppler, and color-flow Echocardiogram Patient Location: Out-Patient [facility] Judge: Viviana Kc RDCS (AE) Indications: Limited follow up exam, h/o pericardial effusion. Other Information Study Quality: Poor. Technically limited study due to body habitus. Conclusion Technically limited and suboptimal study Overall left ventricular function appears within the range of normal Right ventricular function and size appear grossly normal Both atria are normal in size There is no pericardial effusion Wall motion Left Ventricle Technically very limited imaging. Great Vessels IVC is normal in size and collapses >50% with inspiration. Pericardium There is no pericardial effusion.
== END ==
PROVIDERS: PCP Nurse Practitioner Family; Visit Provider Family Medicine
DX: I31.39 Other pericardial effusion (noninflammatory) (principal)
CPT/HCPCS: 93306; 93308

== ENCOUNTER 2024-03-04 02:56 | Outpatient (CLI) | payer MEDICARE, MEDICAID, SELFPAY ==
[2024-03-04 16:09] LABS: FREE T4 1.02 ng/dL (0.76-1.46); TSH 10.08 uIU/Ml (0.36-3.74)
[2024-03-04 16:30] LABS: COMMENT (LAB VIEW ONLY) 127.24 mg/dL; Prot/Crea Ur Ratio 0.72
== END 2024-03-04 02:57 | disposition home or self-care (01) ==
PROVIDERS: PCP Nurse Practitioner Family; Visit Provider Family Medicine
DX: E03.9 Hypothyroidism, unspecified (principal)
CPT/HCPCS: 36415; 82565; 84156; 84439; 84443

== ENCOUNTER → 2024-03-23 01:33 | Outpatient (CLI) | payer MEDICARE, MEDICAID, SELFPAY ==
--- NOTE | 2024-03-23 | DI.RAD_ITS ---
Exam(s) XR WRIST LT COMPLETE EXAM: XR WRIST LT COMPLETE CLINICAL HISTORY: PAIN LT WRIST, M25.532. TECHNIQUE: 2D digital imaging was performed of the left wrist. Three images were obtained. PA, obl ique and lateral views were obtained. COMPARISON: No exams were available for comparison FINDINGS: BONES: No acute fracture is present. No bony destructive lesion is seen. JOINTS: The carpal bones are normally aligned. The configuration of the distal radius and ulna the ma y be due to patient positioning. Please correlate patient's site of pain. MRI may be considered for further evaluation. SOFT TISSUE: There is soft tissue swelling of the wrist medially. IMPRESSION: 1. No acute fracture. Please see the above discussion for complete details. No evidence of a arthro sis. 2. Soft tissue swelling about the wrist medially. No radiopaque foreign bodies are seen. DATA REPOSITORY: RADIATION DOSE DELIVERED:
== END ==
PROVIDERS: PCP Nurse Practitioner Family; Visit Provider Family Medicine
DX: M25.532 Pain in left wrist (principal)
CPT/HCPCS: 73110

== ENCOUNTER 2024-04-03 18:56 | Emergency (ER) | payer MEDICARE, MEDICAID, SELFPAY ==
[2024-04-03 19:04] VITALS: BP 173/89; PULSE 96; RESP 20; TEMP 36.8; O2SAT 95
[2024-04-03 19:31] VITALS: BP 196/95; PULSE 109; RESP 19; TEMP 36.7; O2SAT 95
[2024-04-03 19:41] LABS: Bilirubin Negative (Negative); Blood Small (Negative); Clarity Sl Cloudy (Clear); Glucose Negative (Negative); Ketones Trace mg/dL (Negative); Leukocyte Esterase Moderate (Negative); Nitrite Negative (Negative); Urobilinogen 0.2 mg/dL (Up to 0.2); pH 8.5 (5-8)
[2024-04-03 19:55] LABS: Bacteria Rare HPF (Negative); C & S Indicated? No/Sq. Contamination; Casts Negative LPF (Negative); Crystals Negative HPF (Negative); Epithelial Cells Many HPF (Negative); Mucus Negative (Negative); WBC 20-50 HPF (0-5)
--- NOTE | 2024-04-03 20:03 | ED.GENADUL_ITS ---
Discharge Plan Disposition Patient Disposition: Home Condition: Stable Discharge Details Clinical Impression: Elevated blood pressure reading, UTI (urinary tract infection) Primary Care Provider: Trudi Del Real ED Provider: Denise Dangelo Home Meds and New Rx's Prescriptions: New phenazopyridine [Pyridium] 100 mg tablet 100 mg PO TID Qty: 6 0RF cefpodoxime 200 mg tablet 200 mg PO BID 7 Days Qty: 14 0RF Rx Instructions: must administer with a meal/food Continued fluticasone propion-salmeterol [Advair HFA] 230-21 mcg/actuation HFA aerosol inhaler 2 puff inhalation BID Qty: 12 12RF magnesium 250 mg tablet 500 mg PO DAILY furosemide 40 mg tablet 20 mg PO DAILY meloxicam 15 mg tablet 15 mg PO DAILY hydrocortisone 0.5 % cream 1 applic topical BID PRN fluconazole 100 mg tablet 100 mg PO DAILY Qty: 7 0RF Rx Instructions: take one tablet daily Spiriva Respimat 2.5 mcg/actuation mist See Rx Instructions .ROUTE .COMPLEX Qty: 4 12RF Dose Instruction: INHALE TWO PUFFS BY MOUTH EVERY DAY Rx Instructions: INHALE TWO PUFFS BY MOUTH EVERY DAY albuterol sulfate 2.5 mg /3 mL (0.083 %) solution for nebulization See Rx Instructions .ROUTE .COMPLEX Qty: 180 11RF Dose Instruction: USE 1 VIAL IN NEBULIZER EVERY 4 HOURS - as needed Rx Instructions: USE 1 VIAL IN NEBULIZER EVERY 4 HOURS - as needed bupropion HCl [Wellbutrin XL] 300 mg tablet extended release 24 hr 300 mg PO DAILY Patient Comments: clonazepam 1 mg tablet 1 mg PO TID Rx Instructions: Per pt takes TID (06/30/22) levothyroxine 75 mcg tablet 200 mcg PO DAILY nicotine (polacrilex) 2 mg lozenge 2 mg buccal Q2H PRN Patient Comments: TAKE ONE TABLET BUCCALLY EVERY 2 HOURS NEEDED FOR SMOKING CESSATION furosemide 40 mg tablet 40 mg PO DAILY Qty: 30 0RF Discharge Instructions Instructions: Urinary Tract Infection, Adult ED Additional Instructions: Call [facility] first thing in the morning to schedule follow-up appointment in the next couple of days for reassessment of your blood pressure and urinary tract symptoms Your blood pressure was very elevated today. Please contact your primary care provider to have your blood pressure rechecked. I have prescribed antibiotic called cefpodoxime. Please take the full course as prescribed. You may also use the Pyridium prescribed for discomfort/bladder spasms. Stay well-hydrated, drinking plenty of fluids throughout the day. Return to emergency care if you develop new fever/chills, uncontrollable vomiting, worsening abdominal pain, blood in urine or inability to urinate, chest pains, difficulty breathing beyond baseline, episodes of passing out, severe headache, or if you are very worried and need to be rechecked again immediately Referrals: Trudi Del Real [Primary Care Provider] - [facility] General Date/Time Provider Initiated Documentation: 04/03/24 19:01 . [facility] Narrative: Judie is a 43-year-old female with history of obesity, alpha-1 antitrypsin deficiency with COPD, hypothyroidism and Frantz's who presents to the emergency department today for evaluation of urinary symptoms. She reports that 3 days ago she started having urinary urgency followed by small amounts of urine, unusual odor to urine, and suprapubic pain that radiates around to the right flank. She denies associated fever/chills, nausea/vomiting, change in p.o. intake, change in bowel function, new blood in urine, burning with urination (although she admits that she does not have much sensation down there and would not know), unusual vaginal discharge. She has had previous episodes of similar pain and discomfort with urination that have not been positive for UTI, however she is concerned she may have a UTI. She reports that her chronic disease symptoms have been unchanged since onset. Physical exam reassuring. Patient does appear uncomfortable, pacing around the room. Abdomen is softly obese, mild tenderness palpation of suprapubic/right lower quadrant. No CVA tenderness. Labored breathing per baseline, diminished lung sounds throughout. Normal heart sounds. DDx includes but is not limited to: UTI/pyelonephritis, interstitial cystitis. No red flags concerning for acute intra-abdominal pathology or urinary outlet obstruction requiring emergent diagnostic imaging or labs at this time. I independently interpreted the following tests: UA significant for small blood, positive leuks, 20-50 white blood cells. Will treat for early pyelonephritis with IV ceftriaxone followed by cefpodoxime x 7 days. Blood pressure today was very elevated, recommend follow-up with PCP for reevaluation. Educated on symptomatic management for UTI, including Pyridium, good hydration, and the importance of follow-up with PCP for discussion of UTI and blood pressure. Reviewed red flags indicate need for return to emergency care with patient. Related Data Home Medications ?Medication ?Instructions ?Recorded ?Confirmed fluticasone propionate 230 2 puff inhalation BID #12 grams 06/30/22 04/03/24 mcg-salmeterol 21 mcg/actuation HFA inhaler (Advair HFA) magnesium 250 mg tablet 500 mg PO DAILY 05/14/23 04/03/24 furosemide 40 mg tablet 20 mg PO DAILY 05/19/23 04/03/24 hydrocortisone 0.5 % topical cream 1 applic topical BID PRN 05/19/23 04/03/24 meloxicam 15 mg tablet 15 mg PO DAILY 05/19/23 10/23/23 bupropion HCl 300 mg 24 hr tablet, 300 mg PO DAILY 06/12/23 04/03/24 extended release (Wellbutrin XL) clonazepam 1 mg tablet 1 mg PO TID 06/12/23 04/03/24 fluconazole 100 mg tablet 100 mg PO DAILY #7 tabs 06/29/23 04/03/24 tiotropium bromide 2.5 See Rx Instructions .Route 08/03/23 10/23/23 mcg/actuation mist for inhalation .COMPLEX #4 grams (Spiriva Respimat) furosemide 40 mg tablet 40 mg PO DAILY #30 tabs 10/23/23 04/03/24 levothyroxine 75 mcg tablet 200 mcg PO DAILY 10/23/23 04/03/24 nicotine (polacrilex) 2 mg buccal 2 mg buccal Q2H PRN 10/23/23 10/23/23 lozenge albuterol sulfate 2.5 mg/3 mL See Rx Instructions .Route 03/21/24 04/03/24 (0.083 %) solution for nebulization .COMPLEX #180 ea cefpodoxime 200 mg tablet 200 mg PO BID 7 days #14 tabs 04/03/24 phenazopyridine 100 mg tablet 100 mg PO TID #6 tabs 04/03/24 (Pyridium) Previous Rx's ?Medication ?Instructions ?Recorded fluticasone propionate 230 2 puff inhalation BID #12 grams 06/30/22 mcg-salmeterol 21 mcg/actuation HFA inhaler (Advair HFA) fluconazole 100 mg tablet 100 mg PO DAILY #7 tabs 06/29/23 tiotropium bromide 2.5 See Rx Instructions .Route 08/03/23 mcg/actuation mist for inhalation .COMPLEX #4 grams (Spiriva Respimat) furosemide 40 mg tablet 40 mg PO DAILY #30 tabs 10/23/23 albuterol sulfate 2.5 mg/3 mL See Rx Instructions .Route 03/21/24 (0.083 %) solution for nebulization .COMPLEX #180 ea cefpodoxime 200 mg tablet 200 mg PO BID 7 days #14 tabs 04/03/24 phenazopyridine 100 mg tablet 100 mg PO TID #6 tabs 04/03/24 (Pyridium) Allergies Allergy/AdvReac Type Severity Reaction Status Date / Time Penicillins Allergy Intermediate Hives Verified 04/03/24 19:48 duloxetine (From Cymbalta) Allergy Unknown Visual Verified 04/03/24 19:48 Disturbances house dust Allergy Other (See Verified 04/03/24 19:48 Comment) ropinirole (From Requip) AdvReac Intermediate hallucinate Verified 04/03/24 19:48 / confusion General Stated Complaint: Urinary ROYAL: 3 Review of Systems Narrative: See HPI Exam Const General: cooperative and healthy appearing Resp Effort & Inspection: labored (No change from baseline) Auscultation: diminished lung sounds Cardio Rate: regular rate Rhythm: regular rhythm GI Inspection: normal to inspection, non-distended and obesity Palpation: soft and tender (Mild suprapubic tenderness) Auscultation: normal bowel sounds General: No CVA tenderness Course Vital Signs Vital signs: Vital Signs Temperature 36.8 C 04/03/24 19:04 Pulse 96 H 04/03/24 19:04 Respiratory Rate 04/03/24 19:04 Blood Pressure 173/89 H 04/03/24 19:04 Pulse Oximetry 95 04/03/24 19:04 Temperature 36.7 C 04/03/24 19:31 Temperature Source Temporal Artery Scan 04/03/24 19:04 Pulse 109 H 04/03/24 19:31 Respiratory Rate 19 04/03/24 19:31 Respiratory Effort Normal 04/03/24 19:31 Blood Pressure 196/95 H 04/03/24 19:31 Blood Pressure Position Sitting 04/03/24 19:31 Pulse Oximetry 95 04/03/24 19:31 Oxygen Delivery Method Nasal Cannula 04/03/24 19:31 Oxygen Flow Rate 2 04/03/24 19:31 Pain Level 7 04/03/24 19:31 Lab/Test Results Lab/Test Results: Laboratory Tests Range/Units 04/03/24 19:30 Urine Color (Yellow) Yellow Urine Clarity (Clear) Sl Cloudy Urine pH (5-8) 8.5 H Ur Specific [place] (1.005-1.025) 1.020 Urine Protein (Neg-Trace) mg/dL 100 H Urine Ketones (Negative) mg/dL Trace H Urine Blood (Negative) Small H Urine Nitrite (Negative) Negative Urine Bilirubin (Negative) Negative Urine Urobilinogen (Up to 0.2) mg/dL 0.2 Ur Leukocyte Esterase (Negative) Moderate H Urine RBC (0-2) HPF 5-10 H Urine WBC (0-5) HPF 20-50 H Ur Epithelial Cells (Negative) HPF Many Urine Crystals (Negative) HPF Negative Urine Bacteria (Negative) HPF Rare Urine Casts (Negative) LPF Negative Urine Mucus (Negative) Negative Ur Culture Indicated? No/Sq. 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 (Acute) Tobacco abuse (Acute) Urge incontinence (Acute) Hearing loss (Acute) right ear Dyspareunia (Acute) Edema (Acute) SOB (shortness of breath) (Acute) Dog bite of left thigh with infection (Acute) Dog bite (Acute) Cellulitis of left thigh (Acute) Chronic anxiety (Acute) Otorrhea of both ears (Acute) Smoker (Acute) Hoarseness of voice (Acute) Bilateral hearing loss (Acute) Central perforation of tympanic membrane, left ear (Acute) Medical History Abdominal pain Chest pain Chills (without fever) Chronic obstructive pulmonary disease Depression with anxiety Dyspepsia Easy bruising Hip pain History of posttraumatic stress disorder (PTSD) Human papillomavirus Impaired swallowing Lower back pain 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 Pleuritic chest pain Skin lesion Suicidal ideation Thrush, oral Unresolved grief Wheezing Family History Mother Asthma COPD (chronic obstructive pulmonary disease) Maternal Grandmother COPD (chronic obstructive pulmonary disease) Lung cancer Aunt COPD (chronic obstructive pulmonary disease) Aunt COPD (chronic obstructive pulmonary disease) Social History Smoking/Tobacco Use Status: Current every day Tobacco Type: cigarettes Smoking packs per day: 1.5 Smoking cigarettes per day: 30.0 Smoking risk assessment performed?: Yes Alcohol Intake: former Drug use: Daily Substance use type: marijuana Do you feel safe at home: Yes Do you feel safe in your relationship?: Yes
[2024-04-03] MEDS: Ketorolac 30 MG/ML VIAL IM (20:37)
[2024-04-03] MEDS: Normal Saline 100 ML (20:37)
[2024-04-03] MEDS: cefTRIAXone 1 GM VIAL IM (20:37)
[2024-04-03] MEDS: Phenazopyridine 100 MG TAB PO (20:37)
--- NOTE | 2024-04-03 21:10 | NUR.NOTE ---
Referral faxed to [facility] Trudi Del Real to f/u next couple of days for uti and elevated blood pressure.Nursing Note:
[2024-04-03 21:26] VITALS: BP 186/97; PULSE 94; RESP 22; TEMP 36.8; O2SAT 97
== END 2024-04-03 21:29 | disposition home or self-care (01) ==
PROVIDERS: Emergency Provider Nurse Practitioner Family; PCP Family Medicine
DX: N39.0 Urinary tract infection, site not specified (principal); R03.0 Elevated blood-pressure reading, without diagnosis of hypertension; E06.3 Autoimmune thyroiditis; J44.9 Chronic obstructive pulmonary disease, unspecified
CPT/HCPCS: 81025; 99283; 81003; 81015; J0696; J1885

== ENCOUNTER 2024-05-09 04:18 | Outpatient (CLI) | payer MEDICARE, MEDICAID, SELFPAY ==
[2024-05-09 16:11] LABS: TSH (W/Ref FT4) 0.72 uIU/mL (0.36-3.74)
== END 2024-05-09 04:19 | disposition home or self-care (01) ==
PROVIDERS: PCP Family Medicine; Visit Provider Family Medicine
DX: E03.9 Hypothyroidism, unspecified (principal)
CPT/HCPCS: 36415; 84443

== ENCOUNTER 2024-08-10 02:29 | Outpatient (CLI) | payer MEDICARE, MEDICAID, SELFPAY ==
[2024-08-10 18:17] LABS: TSH (W/Ref FT4) 0.75 uIU/mL (0.36-3.74)
[2024-08-11 15:26] LABS: ALT 34 U/L (14-59); AST 27 U/L (15-37); Albumin 3.8 g/dL (3.4-5.0); Alkaline Phosphatase 60 U/L (46-116); Anion Gap 10.1 mmol/L (3-11); BUN 15 mg/dL (7-18); Bilirubin, Total 0.58 mg/dL (0.2-1.0); CO2 26.9 mmol/L (21.0-32.0); CREATININE 0.8 mg/dL (0.55-1.02); Calcium 9.1 mg/dL (8.5-10.1); Calculated LDL 167 mg/dL (<100); Chloride 103 mmol/L (98-107); Cholesterol 241 mg/dL (<200); Estimated GFR 92.54 (mL/min/1.73m2); Glucose 95 mg/dL (74-106); HDL Cholesterol 39 mg/dL (40-60); Potassium 4.4 mmol/L (3.5-5.1); Sodium 140 mmol/L (136-145); Total Protein 7.6 g/dL (6.4-8.2); Triglyceride 177 mg/dL (<150)
== END 2024-08-10 02:30 | disposition home or self-care (01) ==
PROVIDERS: PCP Family Medicine; Visit Provider Family Medicine
DX: E03.9 Hypothyroidism, unspecified (principal); E78.5 Hyperlipidemia, unspecified
CPT/HCPCS: 36415; 80053; 80061; 84443

== ENCOUNTER 2024-08-11 16:46 | Outpatient (REF) | payer MEDICARE, MEDICAID, SELFPAY ==
[2024-08-11 18:05] LABS: COMMENT (LAB VIEW ONLY) 174.88 mg/dL
[2024-08-11 18:07] LABS: Microalb ug/mg Crea 251.1 ug/mg Cr
[2024-08-12 09:14] LABS: COMMENT (LAB VIEW ONLY) 176.39 mg/dL; PROTEIN 66.2 mg/dL; Prot/Crea Ur Ratio 0.37
== END 2024-08-11 16:47 | disposition home or self-care (01) ==
LOC: NCHCN 16:46
PROVIDERS: PCP Family Medicine; Visit Provider Family Medicine
DX: R80.9 Proteinuria, unspecified (principal)
CPT/HCPCS: 82043; 82565; 82570; 84156

== ENCOUNTER → 2024-08-26 08:53 | Outpatient (BNVA) | payer MEDICARE, MEDICAID, SELFPAY | PROVIDERS: PCP Family Medicine; Referring Provider Family Medicine | DX: M67.432 Ganglion, left wrist (principal) | CPT/HCPCS: 99213 ==

== ENCOUNTER 2024-09-04 14:57 | Inpatient (IN) | payer MEDICARE, MEDICAID, SELFPAY ==
[2024-09-04] VITALS (72 sets, daily range): BP systolic 111–213; BP diastolic 59–129; PULSE 96–124; RESP 4–42; TEMP 36.1–37.6; O2SAT 86–98
--- NOTE | 2024-09-04 15:00 | RT.EKG_ITS ---
APPROVED REPORT Exam: Resting ECG Reason for Exam: SOB Patient Location: E HR:109 bpm ECG Measurements Heart Rate 109 AXIS NV 146 P 77 QRSd 87 QRS -71 QT 324 T 67 QTc 436 Conclusion Sinus tachycardia, rate 109 No interval abnormalities No STEMI Q wave III, aVF, V3
[2024-09-04 15:09] LABS: BE (Venous) 7 mmol/L (-2-3); HCO3 (Venous) 32 mmol/L (23-28); O2 Sat (Venous) 70 %; TCO2 (Venous) 28 mmol/L (24-29); pCO2 (Venous) 58 mmHg (41-51); pH (Venous) 7.35 (7.31-7.41); pO2 (Venous) 38 mmHg
[2024-09-04 15:11] LABS: Abs Immature Grans 0.03 10^3/uL (0.0-0.06); Absolute Basophil Count 0.02 10^3/uL (0.0-0.2); Absolute Eosinophil Count 0.02 10^3/uL (0.0-0.7); Absolute Lymphocyte Count 1.11 10^3/uL (1.2-3.4); Absolute Monocyte Count 0.78 10^3/uL (0.1-0.8); Absolute Neutrophil Count 6.41 10^3/uL (1.2-6.7); Basophils % 0.2 %; Eosinophils % 0.2 %; HCT 51.6 % (36.0-46.0); Immature Grans % 0.4 %; Lymphocytes % 13.3 %; MCH 30.5 pg (27.0-33.0); MCHC 32.9 % (32.0-36.0); MCV 93 fL (80-95); MPV 9.4 fL (8.0-11.0); Monocytes % 9.3 %; Neutrophils % 76.6 %; Platelet Count 191 10^3/uL (130-400); RBC 5.57 10^6/uL (3.93-5.22); RDW 12.2 % (11.7-14.6); WBC 8.37 10^3/uL (4.4-10.8)
--- NOTE | 2024-09-04 15:13 | RESPIRATORY ---
Pt has COPD and Alpha-1 def. Target SpO2 88-92%. Baseline O2 requirement is 2L via nasal cannula. DME: [facility]. Pt also states she wears a BiPAP at home every night. DME: [facility]. Pt states she takes Advair every day and is supposed to also take Spiriva, she has been out of Spiriva for about a month though.
[2024-09-04] MEDS: MAGNESIUM SULFATE 2 GM/50 ML BAG IV_INF (15:15)
--- NOTE | 2024-09-04 15:33 | W.ED.GENAD ---
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 Date/Time Provider Initiated Documentation: 09/04/24 15:02. Limitations to Documentation: no limitations. Information obtained by: patient, EMS and old records reviewed. HPI Narrative: HPI: This is a 44-year-old female patient with a history of alpha 1 antitrypsin's, COPD, asthma, GABY, obesity hypoventilation syndrome, who is presenting for evaluation of shortness of breath. The patient reports that her increased work of breathing started on Thursday, and worsened throughout the weekend. She summoned EMS who noted her to be mildly hypoxic to 91, started her on medications to include albuterol, Solu-Medrol, and 3 DuoNebs. She arrived with improved oxygenation but ongoing inspiratory and expiratory wheezing and poor air movement. The patient reports that she wears a BiPAP at night at home, has never needed to be intubated and has not actually had any need for admissions recently. She states that she ran out of her Spiriva and Symbicort about a month ago. The patient was endorsing some chest discomfort for EMS, had an EKG performed by them that was nonischemic. Exam: Gen: awake and alert, in notable respiratory distress HEENT: PERRL, External ears and nose normal, mucous membranes moist. Neck: Supple, full range of motion, no observable masses Lungs: Increased work of breathing with tachypnea and prolonged expiratory phase, inspiratory and expiratory wheezes appreciated throughout lung barrera, slightly diminished air movement is appreciated CV: Heart with tachycardic rate, regular rhythm, no murmurs auscultated. Strong and symmetrical radial pulses. Abdomen: Soft, nondistended, non-tended to palpation. No rigidity, rebound tenderness, or guarding. MSK: No joint swelling, no redness. Full ROM without limitation, no external traumatic findings. No peripheral edema Skin: No rashes or lesions to visualized skin. Normal color, warm, and dry. Neuro: No facial asymmetry, symmetrical strength and sensation. Psych: Appropriate for situation. MDM: This is a 44-year-old female patient presenting for evaluation of shortness of breath. My differential includes but is not limited to COPD exacerbation, respiratory failure, viral upper respiratory infection, pneumonia, bronchitis. I see no evidence on the physical examination for fluid overload but certainly considered pulmonary edema, pleural effusion. Considered pneumothorax. The patient appropriately received steroids in the outpatient environment, I will repeat a large-volume albuterol neb and provide the patient with 2 g of magnesium. I will obtain a VBG, as well as CBC, CMP, BNP, troponin, and chest x-ray. I will also obtain a viral swab. ED Course: On reevaluation the patient continues with the increased work of breathing despite medications, and was noted to have a VBG with some hypercarbia without acidosis, 58 pCO2 pH 7.35. For this reason, and given the patient's increased work of breathing we placed the patient on BiPAP, 10/5. The patient otherwise is without leukocytosis, anemia, or thrombocytopenia. Chemistry panel is without significant abnormalities, evidence of kidney or liver dysfunction, and her troponin was negative. Her BNP is low. The patient's viral swab was positive for influenza A which is likely the inciting cause of her respiratory failure and COPD exacerbation. Independently reviewed the patient's x-ray, which does show increased markings in the lower lobes per our radiologist, of unclear clinical significance given the limitation of the portable scan. The patient did have an episode of hypoxia and worsening respiratory distress upon attempting to transfer to the commode, and a repeat VBG was obtained. This shows worsening acidosis and hypercapnia, to the 60s and 7.2, for which BiPAP was increased to 15/5. I did discuss intubation with the patient, but feel that she is deserving of a trial of higher pressure BiPAP. This did seem to improve her work of breathing and she did not require initiation of an advanced airway while under my care. I reached out to the hospitalist and he has graciously accepted this patient for admission to the ICU, patient was transferred from this department without incident. Sahara Montero MD Related Data Home Medications ?Medication ?Instructions ?Recorded ?Confirmed fluticasone propionate 230 2 puff inhalation BID #12 grams 06/30/22 09/04/24 mcg-salmeterol 21 mcg/actuation HFA inhaler (Advair HFA) hydrocortisone 0.5 % topical cream 1 applic topical BID PRN 05/19/23 09/04/24 bupropion HCl 300 mg 24 hr tablet, 300 mg PO DAILY 06/12/23 09/04/24 extended release (Wellbutrin XL) tiotropium bromide 2.5 See Rx Instructions .Route 08/03/23 09/04/24 mcg/actuation mist for inhalation .COMPLEX #4 grams (Spiriva Respimat) levothyroxine 75 mcg tablet 200 mcg PO DAILY 10/23/23 09/04/24 nicotine (polacrilex) 2 mg buccal 2 mg buccal Q2H PRN 10/23/23 09/04/24 lozenge albuterol sulfate 2.5 mg/3 mL See Rx Instructions .Route 03/21/24 09/04/24 (0.083 %) solution for nebulization .COMPLEX #180 ea Previous Rx's ?Medication ?Instructions ?Recorded fluticasone propionate 230 2 puff inhalation BID #12 grams 06/30/22 mcg-salmeterol 21 mcg/actuation HFA inhaler (Advair HFA) tiotropium bromide 2.5 See Rx Instructions .Route 08/03/23 mcg/actuation mist for inhalation .COMPLEX #4 grams (Spiriva Respimat) albuterol sulfate 2.5 mg/3 mL See Rx Instructions .Route 03/21/24 (0.083 %) solution for nebulization .COMPLEX #180 ea Allergies Allergy/AdvReac Type Severity Reaction Status Date / Time Penicillins Allergy Intermediate Hives Verified 09/04/24 15:02 duloxetine (From Cymbalta) Allergy Unknown Visual Verified 09/04/24 15:02 Disturbances house dust Allergy Other (See Verified 09/04/24 15:02 Comment) ropinirole (From Requip) AdvReac Intermediate hallucinate Verified 09/04/24 15:02 / confusion General Stated Complaint: SOB ROYAL: 3 Course Vital Signs Vital signs: Vital Signs Temperature 36.6 C 09/04/24 14:54 Pulse 107 H 09/04/24 14:54 Respiratory Rate 20 09/04/24 14:54 Blood Pressure 213/102 H 09/04/24 14:54 Pulse Oximetry 96 09/04/24 14:54 Temperature 36.6 C 09/04/24 14:54 Temperature Source Temporal Artery Scan 09/04/24 14:54 Pulse 104 H 09/04/24 15:15 Respiratory Rate 29 H 09/04/24 15:15 Respiratory Effort Short of Breath, Labored 09/04/24 15:09 Respiratory Depth Normal 09/04/24 15:09 Respiratory Pattern Normal 09/04/24 15:09 Blood Pressure 213/102 H 09/04/24 14:54 Blood Pressure Position Sitting 09/04/24 14:54 Pulse Oximetry 97 09/04/24 15:15 Oxygen Delivery Method Aerosol Mask 09/04/24 15:15 Oxygen Flow Rate 8 09/04/24 15:15 Pain Level 0 09/04/24 14:54 Lab/Test Results Lab/Test Results: Laboratory Tests Range/Units 09/04/24 15:00 WBC (4.4-10.8) 10^3/uL 8.37 RBC (3.93-5.22) 10^6/uL 5.57 H Hgb (11.2-15.7) g/dL 17.0 H Hct (36.0-46.0) % 51.6 H MCV (80-95) fL 93 MCH (27.0-33.0) pg 30.5 MCHC (32.0-36.0) % 32.9 RDW (11.7-14.6) % 12.2 Plt Count (130-400) 10^3/uL 191 MPV (8.0-11.0) fL 9.4 Immature Gran % % 0.4 Neutrophils % % 76.6 Lymphocytes % % 13.3 Monocytes % % 9.3 Eosinophils % % 0.2 Basophils % % 0.2 Nucleated RBC % (0.0-0.3) % 0.0 Absolute Neutrophils (1.2-6.7) 10^3/uL 6.41 Absolute Lymphocytes (1.2-3.4) 10^3/uL 1.11 L Absolute Monocytes (0.1-0.8) 10^3/uL 0.78 Absolute Eosinophils (0.0-0.7) 10^3/uL 0.02 Absolute Basophils (0.0-0.2) 10^3/uL 0.02 VBG pH (7.31-7.41) 7.35 VBG pCO2 (41-51) mmHg 58 H VBG pO2 mmHg 38 VBG HCO3 (23-28) mmol/L 32 H VBG Total CO2 (24-29) mmol/L 28 VBG O2 Saturation % 70 VBG Base Excess (-2-3) mmol/L 7 H Medical Decision Making Quality:SDOH Health Related Social Needs: Health related social needs housing instability, housed, with risk of homelessness(Z59.811), food insecurity(Z59.41) Critical Care Time Critical Care Time Critical Care Time: Yes Total Critical Care Time: 45 Attestation: Upon my evaluation, this patient had a high probability of imminent or life-threatening deterioration due to hypoxic and hypercarbic respiratory failure, COPD exacerbation, which required my direct attention, intervention, and personal management. I have personally provided 45 minutes of critical care time exclusive of time spent on separately billable procedures. Time includes review of laboratory data, radiology results, discussion with consultants, and monitoring for potential decompensation. Interventions were performed as documented above. 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 (Acute) Phenotype MS Asthma-COPD overlap syndrome (Acute) Tobacco abuse (Acute) Urge incontinence (Acute) Hearing loss (Acute) right ear Dyspareunia (Acute) Edema (Acute) SOB (shortness of breath) (Acute) Dog bite of left thigh with infection (Acute) Dog bite (Acute) Cellulitis of left thigh (Acute) Chronic anxiety (Acute) Otorrhea of both ears (Acute) Smoker (Acute) Hoarseness of voice (Acute) Bilateral hearing loss (Acute) Central perforation of tympanic membrane, left ear (Acute) Medical History Abdominal pain Chest pain Chills (without fever) Chronic obstructive pulmonary disease Depression with anxiety Dyspepsia Easy bruising Hip pain History of posttraumatic stress disorder (PTSD) Human papillomavirus Impaired swallowing Lower back pain 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 Pleuritic chest pain Skin lesion Suicidal ideation Thrush, oral Unresolved grief Wheezing Family History Mother Asthma COPD (chronic obstructive pulmonary disease) Maternal Grandmother COPD (chronic obstructive pulmonary disease) Lung cancer Aunt COPD (chronic obstructive pulmonary disease) Aunt COPD (chronic obstructive pulmonary disease) Social History Smoking/Tobacco Use Status: Current every day Tobacco Type: cigarettes Smoking packs per day: 1.5 Smoking cigarettes per day: 30.0 Smoking risk assessment performed?: Yes Alcohol Intake: former Drug use: Daily Substance use type: marijuana Housing: other Do you feel safe at home: Yes Do you feel safe in your relationship?: Yes
[2024-09-04 15:39] LABS: ALT 27 U/L (14-59); AST 29 U/L (15-37); Albumin 3.5 g/dL (3.4-5.0); Alkaline Phosphatase 70 U/L (46-116); Anion Gap 5.4 mmol/L (3-11); BUN 9 mg/dL (7-18); Bilirubin, Total 0.66 mg/dL (0.2-1.0); CO2 31.6 mmol/L (21.0-32.0); CREATININE 0.8 mg/dL (0.55-1.02); Calcium 8.5 mg/dL (8.5-10.1); Chloride 100 mmol/L (98-107); Estimated GFR 92.54 (mL/min/1.73m2); Glucose 118 mg/dL (74-106); Magnesium 1.7 mg/dL (1.8-2.4); NT-proBNP 156 pg/mL (<300); Potassium 3.6 mmol/L (3.5-5.1); Sodium 137 mmol/L (136-145); TSH (W/Ref FT4) 0.71 uIU/mL (0.36-3.74); Total Protein 7.7 g/dL (6.4-8.2); Troponin I 11 ng/L (<or=51)
--- NOTE | 2024-09-04 16:11 | DI.RAD_ITS ---
Exam(s) XR PORTABLE CHEST AP EXAM: XR PORTABLE CHEST AP CLINICAL HISTORY: SOB. TECHNIQUE: 2D digital imaging was performed. COMPARISON: CR XR CHEST 2V PA LATERAL from 10/23/2023 FINDINGS: Single AP portable view. Heart size is upper normal. The mediastinum is not widened. There are increased interstitial markings in lower aspect both lungs involving lower lobes. No obvio us pleural effusions evident IMPRESSION: Increased lower lobe markings. Recommend nonportable PA and lateral views when clinically possible. DATA REPOSITORY: RADIATION DOSE DELIVERED:
[2024-09-04 16:12] LABS: COVID-19 PCR Negative (Negative); Influenza A PCR Positive (Negative); Influenza B PCR Negative (Negative); RSV PCR Negative (Negative)
[2024-09-04 16:13] LABS: Source Nasopharynx
[2024-09-04 16:37] LABS: BE (Venous) 4 mmol/L (-2-3); HCO3 (Venous) 31 mmol/L (23-28); O2 Sat (Venous) 83 %; TCO2 (Venous) 27 mmol/L (24-29); pH (Venous) 7.27 (7.31-7.41); pO2 (Venous) 52 mmHg
[2024-09-04 16:39] LABS: pCO2 (Venous) 66 mmHg (41-51)
[2024-09-04 16:57] LABS: Troponin I 8 ng/L (<or=51)
[2024-09-04] MEDS: LORazepam 2 MG/ML VIAL 0.5 MG IVP ×2 (17:29→21:20)
--- NOTE | 2024-09-04 17:47 | HPE_ITS ---
Date of service: 09/04/24 Time of Service: 17:47 Assessment and Plan Assessment and plan (1) Tobacco abuse: Status: Acute Assessment and plan: pt will be placed on nicotine supplementation while an inpatient. Recommend complete and total cessation (2) Chronic anxiety: Status: Acute Assessment and plan: Will start ativan 2/2 anxiety associated with air hunger. Will also add a small dose of morphine (3) Syfia-9-bsmibuojuzs deficiency carrier: Status: Acute Assessment and plan: PT is seen in the outpatient setting by pulmonology. Recommend close follow up (4) Obesity: Status: Chronic Assessment and plan: Will consult nutrition in am for recommendations (5) Asthma-COPD overlap syndrome: Status: Acute Assessment and plan: POC discussed with RT. Will add symbicort and spiriva as well as continued albuterol and solumedrol (6) Obesity hypoventilation syndrome: Status: Acute (7) Sleep apnea, obstructive: Status: Chronic (8) Influenza A: Status: Acute Assessment and plan: Add lichau History of Present Illness History of Present Illness Chief Complaint: SOB Narrative: This is a 44-year-old female with a known history of alpha 1 antitrypsin disorder as well as continued tobacco abuse who presented to the ED with worsening shortness of breath. While being seen in the ED the patient was noted to have significant hypercapnia tachypnea hypertension tachycardia hypoxia and acidosis and was subsequently mated to the hospital service for further evaluation and treatment. Per my discussion with the ED physician Dr. Montero patient was given 125 mg of Solu-Medrol in the field as well as 4 rounds of albuterol. Upon my examination of Mrs. Felix she had significant tachypnea and was not able to speak in complete sentences due to shortness of breath. Of note, the patient was also diagnosed with influenza A. Patient's symptoms started on Thursday approximately 3 days ago. In reviewing her chart the patient does see a developmental services worker and was last seen at least in our records on 20 April. The patient continues to smoke but the exact extent of her smoking is unavailable at this time as she is unable to give a complete history due to shortness of breath. Patient will be admitted to the ICU for closer observation. Review of Systems Unobtainable due to (unable to obtain 2/2 significant SOB) PFSH All Active Problems (Updated 09/04/24 @ 17:55 by Vamshi Wiggins MD) Influenza A (Acute) Ganglion cyst of dorsum of left wrist (Acute) Obesity hypoventilation syndrome (Acute) Sleep apnea, obstructive (Chronic) Hemoptysis (Acute) Obesity (Chronic) Livedo reticularis (Acute) Xrkvf-6-opkwymduioe deficiency carrier (Acute) Phenotype MS Asthma-COPD overlap syndrome (Acute) Tobacco abuse (Acute) Urge incontinence (Acute) Hearing loss (Acute) right ear Dyspareunia (Acute) Edema (Acute) SOB (shortness of breath) (Acute) Dog bite of left thigh with infection (Acute) Dog bite (Acute) Cellulitis of left thigh (Acute) Chronic anxiety (Acute) Otorrhea of both ears (Acute) Smoker (Acute) Hoarseness of voice (Acute) Bilateral hearing loss (Acute) Central perforation of tympanic membrane, left ear (Acute) Medical History Abdominal pain Chest pain Chills (without fever) Chronic obstructive pulmonary disease Depression with anxiety Dyspepsia Easy bruising Hip pain History of posttraumatic stress disorder (PTSD) Human papillomavirus Impaired swallowing Lower back pain 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 Pleuritic chest pain Skin lesion Suicidal ideation Thrush, oral Unresolved grief Wheezing Family History Mother Asthma COPD (chronic obstructive pulmonary disease) Maternal Grandmother COPD (chronic obstructive pulmonary disease) Lung cancer Aunt COPD (chronic obstructive pulmonary disease) Aunt COPD (chronic obstructive pulmonary disease) Social History Smoking/Tobacco Use Status: Current every day Tobacco Type: cigarettes Smoking packs per day: 1.5 Smoking cigarettes per day: 30.0 Smoking risk assessment performed?: Yes Alcohol Intake: former Drug use: Daily Substance use type: marijuana Do you feel safe at home: Yes Do you feel safe in your relationship?: Yes Meds Allergies and Home Medications Allergies Allergy/AdvReac Type Severity Reaction Status Date / Time Penicillins Allergy Intermediate Hives Verified 09/04/24 15:02 duloxetine (From Cymbalta) Allergy Unknown Visual Verified 09/04/24 15:02 Disturbances house dust Allergy Other (See Verified 09/04/24 15:02 Comment) ropinirole (From Requip) AdvReac Intermediate hallucinate Verified 09/04/24 15:02 / confusion Home Medications ?Medication ?Instructions ?Recorded ?Confirmed ?Type fluticasone propionate 230 2 puff inhalation BID #12 grams 06/30/22 09/04/24 Rx mcg-salmeterol 21 mcg/actuation HFA inhaler (Advair HFA) hydrocortisone 0.5 % topical cream 1 applic topical BID PRN 05/19/23 09/04/24 History bupropion HCl 300 mg 24 hr tablet, 300 mg PO DAILY 06/12/23 09/04/24 History extended release (Wellbutrin XL) tiotropium bromide 2.5 See Rx Instructions .Route 08/03/23 09/04/24 Rx mcg/actuation mist for inhalation .COMPLEX #4 grams (Spiriva Respimat) levothyroxine 75 mcg tablet 200 mcg PO DAILY 10/23/23 09/04/24 History nicotine (polacrilex) 2 mg buccal 2 mg buccal Q2H PRN 10/23/23 09/04/24 History lozenge albuterol sulfate 2.5 mg/3 mL See Rx Instructions .Route 03/21/24 09/04/24 Rx (0.083 %) solution for nebulization .COMPLEX #180 ea Exam Narrative Exam Narrative: HEENT normocephalic atraumatic mucous membranes moist oropharynx is clear Neck: No lymphadenopathy no JVD no thyroid megaly but enlarged circumference of the neck Cardiovascular: Tachycardia but no murmur rubs or gallop Lungs: Significant accessory muscle use including sternal cleidomastoid use. Bilateral inspiratory and expiratory wheeze Abdomen: Obese Extremities: No sinus clubbing or edema Neurologic: Cannot be completely assessed due to underlying condition Psych: Cannot be completely assessed due to underlying condition but responds to verbal stimuli General: Appears to be in moderate distress Results Labs 09/04/24 15:00 09/04/24 15:00 Labs: Laboratory Results - last 24 hr 09/04/24 09/04/24 09/04/24 15:00 15:20 16:33 WBC 8.37 RBC 5.57 H Hgb 17.0 H Hct 51.6 H MCV 93 MCH 30.5 MCHC 32.9 RDW 12.2 Plt Count 191 MPV 9.4 Immature Gran % 0.4 Neutrophils % 76.6 Lymphocytes % 13.3 Monocytes % 9.3 Eosinophils % 0.2 Basophils % 0.2 Nucleated RBC % 0.0 Absolute Neutrophils 6.41 Absolute Lymphocytes 1.11 L Absolute Monocytes 0.78 Absolute Eosinophils 0.02 Absolute Basophils 0.02 VBG pH 7.35 7.27 L VBG pCO2 58 H 66 H* VBG pO2 38 52 VBG HCO3 32 H 31 H VBG Total CO2 28 27 VBG O2 Saturation 70 83 VBG Base Excess 7 H 4 H Sodium 137 Potassium 3.6 Chloride 100 Carbon Dioxide 31.6 Anion Gap 5.4 BUN 9 Creatinine 0.8 Est GFR (CKD-EPI 2020) 92.54 Glucose 118 H Calcium 8.5 Magnesium 1.7 L Total Bilirubin 0.66 AST 29 ALT 27 Alkaline Phosphatase 70 Troponin I 11 8 NT-Pro-B Natriuret Pep 156 Total Protein 7.7 Albumin 3.5 TSH 0.71 COVID-19 Source Nasopharynx SARS-CoV-2 (PCR) Negative Influenza Type A (PCR) Positive A Influenza Type B (PCR) Negative RSV (PCR) Negative 09/04/24 18:02 WBC RBC Hgb Hct MCV MCH MCHC RDW Plt Count MPV Immature Gran % Neutrophils % Lymphocytes % Monocytes % Eosinophils % Basophils % Nucleated RBC % Absolute Neutrophils Absolute Lymphocytes Absolute Monocytes Absolute Eosinophils Absolute Basophils VBG pH VBG pCO2 VBG pO2 VBG HCO3 VBG Total CO2 VBG O2 Saturation VBG Base Excess Sodium Potassium Chloride Carbon Dioxide Anion Gap BUN Creatinine Est GFR (CKD-EPI 2020) Glucose Calcium Magnesium Total Bilirubin AST ALT Alkaline Phosphatase Troponin I Cancelled NT-Pro-B Natriuret Pep Total Protein Albumin TSH COVID-19 Source SARS-CoV-2 (PCR) Influenza Type A (PCR) Influenza Type B (PCR) RSV (PCR) Last Vital Signs Temp 36.6 C 09/04/24 16:09 Pulse 124 H 09/04/24 16:53 Resp 32 H 09/04/24 16:53 BP 213/102 H 09/04/24 16:09 Pulse Ox 91 L 09/04/24 16:53 Time Spent Time spent with Patient: 55-74 minutes Time was spent: preparing to see the patient(eg.review tests), obtaining and/or reviewing separately otained hiistory, ordering medications,tests, procedures, referring, communicating with other health administrator health care facility, indepentently interpreting results, counseling the patient and care coordination
[2024-09-04] MEDS: Pantoprazole 40 MG VIAL IVP (20:23)
[2024-09-04] MEDS: Normal Saline Flush 10 ML SYR IVP ×2 (20:24→21:21)
[2024-09-04] MEDS: methylPREDNISolone SUCC 40 MG VIAL IVP (20:25)
[2024-09-04] MEDS: Enoxaparin 60 MG/0.6 ML SYR SC (20:25)
[2024-09-04] MEDS: Ibuprofen 800 MG TAB PO (20:26)
[2024-09-04] MEDS: Nicotine 14 MG/24 HR PATCH TD (20:26)
[2024-09-04] MEDS: Oseltamivir 75 MG CAP PO (20:33)
[2024-09-04 20:45] LABS: Procalcitonin < 0.10 ng/mL
[2024-09-04 21:02] LABS: BE (Venous) 4 mmol/L (-2-3); HCO3 (Venous) 29 mmol/L (23-28); O2 Sat (Venous) 96 %; TCO2 (Venous) 25 mmol/L (24-29); pCO2 (Venous) 48 mmHg (41-51); pH (Venous) 7.39 (7.31-7.41); pO2 (Venous) 73 mmHg
[2024-09-04 21:14] LABS: Anion Gap 7.5 mmol/L (3-11); BUN 11 mg/dL (7-18); CO2 29.5 mmol/L (21.0-32.0); CREATININE 0.8 mg/dL (0.55-1.02); Calcium 8.3 mg/dL (8.5-10.1); Chloride 100 mmol/L (98-107); Estimated GFR 92.54 (mL/min/1.73m2); Glucose 164 mg/dL (74-106); Potassium 3.9 mmol/L (3.5-5.1); Sodium 137 mmol/L (136-145)
[2024-09-04] MEDS: Budesonide/Formoterol 160/4.5 6 GM 60 PUFF INH IH (21:30)
[2024-09-05] VITALS (31 sets, daily range): BP systolic 108–151; BP diastolic 53–96; PULSE 58–115; RESP 2–30; TEMP 36.4–36.7; O2SAT 87–93
[2024-09-05] MEDS: Albuterol/Ipratropium 3 ML UPD VIAL UPD ×4 (00:36→17:36)
[2024-09-05] MEDS: methylPREDNISolone SUCC 40 MG VIAL IVP ×3 (03:18→18:19)
[2024-09-05] MEDS: Normal Saline Flush 10 ML SYR IVP ×4 (03:19→19:38)
[2024-09-05 06:36] LABS: Abs Immature Grans 0.03 10^3/uL (0.0-0.06); Absolute Basophil Count 0.01 10^3/uL (0.0-0.2); Absolute Eosinophil Count 0.01 10^3/uL (0.0-0.7); Absolute Lymphocyte Count 0.75 10^3/uL (1.2-3.4); Absolute Monocyte Count 0.26 10^3/uL (0.1-0.8); Absolute Neutrophil Count 7.42 10^3/uL (1.2-6.7); Basophils % 0.1 %; Eosinophils % 0.1 %; HGB 17.2 g/dL (11.2-15.7); Immature Grans % 0.4 %; Lymphocytes % 8.8 %; MCH 30.8 pg (27.0-33.0); MCHC 33.1 % (32.0-36.0); MCV 93 fL (80-95); MPV 9.4 fL (8.0-11.0); Monocytes % 3.1 %; Neutrophils % 87.5 %; Platelet Count 204 10^3/uL (130-400); RBC 5.59 10^6/uL (3.93-5.22); RDW 12.3 % (11.7-14.6); RDW-SD 42.1 fL; WBC 8.48 10^3/uL (4.4-10.8)
[2024-09-05] MEDS: Levothyroxine 100 MCG TAB 200 MCG PO (06:43)
[2024-09-05 07:21] LABS: ALT 23 U/L (14-59); AST 25 U/L (15-37); Albumin 3.3 g/dL (3.4-5.0); Alkaline Phosphatase 64 U/L (46-116); Anion Gap 9.3 mmol/L (3-11); BUN 18 mg/dL (7-18); Bilirubin, Total 0.54 mg/dL (0.2-1.0); CO2 29.7 mmol/L (21.0-32.0); CREATININE 0.9 mg/dL (0.55-1.02); Calcium 8.7 mg/dL (8.5-10.1); Chloride 100 mmol/L (98-107); Estimated GFR 80.34 (mL/min/1.73m2); Glucose 173 mg/dL (74-106); Potassium 3.9 mmol/L (3.5-5.1); Sodium 139 mmol/L (136-145); Total Protein 7.5 g/dL (6.4-8.2)
[2024-09-05] MEDS: Enoxaparin 60 MG/0.6 ML SYR SC ×2 (08:04→19:38)
[2024-09-05] MEDS: buPROPion-XL 150 MG TABCR 300 MG PO (08:04)
[2024-09-05] MEDS: Oseltamivir 75 MG CAP PO ×2 (08:06→19:38)
[2024-09-05] MEDS: Budesonide/Formoterol 160/4.5 6 GM 60 PUFF INH IH ×2 (08:43→21:48)
[2024-09-05] MEDS: Tiotropium Bromide-Respimat 10 PUFF INH 2 PUFF IH (08:43)
[2024-09-05] MEDS: LORazepam 2 MG/ML VIAL 0.5 MG IVP ×2 (09:53→19:38)
[2024-09-05] MEDS: Normal Saline 10 ML VIAL IJ (09:54)
--- NOTE | 2024-09-05 10:45 | PGE_ITS ---
Date of Service Date of service: 09/05/24 Time of Service: 10:45 Assessment and Plan Assessment and plan (1) Tobacco abuse: Status: Acute Assessment and plan: pt will be placed on nicotine supplementation while an inpatient. Recommend complete and total cessation 09/05/24 will continue with nicoderm (2) Chronic anxiety: Status: Acute Assessment and plan: Will start ativan 2/2 anxiety associated with air hunger. 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 Recommend close follow up (4) Obesity: Status: Chronic Assessment and plan: Will consult nutrition in am for recommendations (5) Asthma-COPD overlap syndrome: Status: Acute Assessment and plan: POC discussed with RT. Will add symbicort and spiriva as well as continued albuterol and solumedrol Pt started on duoneb as well (6) Obesity hypoventilation syndrome: Status: Acute (7) Influenza A: Status: Acute Assessment and plan: Add tamifu c/w tamiflu for another day Subjective Subjective Interval history since last seen: Pt seen and examined in her room this am. POC discussed with pt and bedside nurse. POC also discussed at [facility]. Pt states that her breathing has improved. Exam Narrative Exam Narrative: HEENT normocephalic atraumatic mucous membranes moist oropharynx is clear Neck: No lymphadenopathy no JVD no thyroid megaly but enlarged circumference of the neck Cardiovascular: Tachycardia but no murmur rubs or gallop Lungs: improving aeration with no AMU at this time, still with ins/ex wheeze Abdomen: Obese Extremities: No sinus clubbing or edema Neurologic: Cannot be completely assessed due to underlying condition Psych: aaox3 General: Appears to be in moderate distress Objective Last Vital Signs Temp 36.1 C L 09/04/24 20:02 Pulse 97 H 09/05/24 08:00 Resp 28 H 09/05/24 08:00 BP 151/85 H 09/05/24 08:00 Pulse Ox 91 L 09/05/24 08:35 Laboratory Results - last 24 hr 09/04/24 09/04/24 09/04/24 15:00 15:20 16:33 WBC 8.37 RBC 5.57 H Hgb 17.0 H Hct 51.6 H MCV 93 MCH 30.5 MCHC 32.9 RDW 12.2 Plt Count 191 MPV 9.4 Immature Gran % 0.4 Neutrophils % 76.6 Lymphocytes % 13.3 Monocytes % 9.3 Eosinophils % 0.2 Basophils % 0.2 Nucleated RBC % 0.0 Absolute Neutrophils 6.41 Absolute Lymphocytes 1.11 L Absolute Monocytes 0.78 Absolute Eosinophils 0.02 Absolute Basophils 0.02 VBG pH 7.35 7.27 L VBG pCO2 58 H 66 H* VBG pO2 38 52 VBG HCO3 32 H 31 H VBG Total CO2 28 27 VBG O2 Saturation 70 83 VBG Base Excess 7 H 4 H Sodium 137 Potassium 3.6 Chloride 100 Carbon Dioxide 31.6 Anion Gap 5.4 BUN 9 Creatinine 0.8 Est GFR (CKD-EPI 2020) 92.54 Glucose 118 H Calcium 8.5 Magnesium 1.7 L Total Bilirubin 0.66 AST 29 ALT 27 Alkaline Phosphatase 70 Troponin I 11 8 NT-Pro-B Natriuret Pep 156 Total Protein 7.7 Albumin 3.5 Procalcitonin TSH 0.71 COVID-19 Source Nasopharynx SARS-CoV-2 (PCR) Negative Influenza Type A (PCR) Positive A Influenza Type B (PCR) Negative RSV (PCR) Negative 09/04/24 09/04/24 09/04/24 18:02 18:40 20:55 WBC RBC Hgb Hct MCV MCH MCHC RDW Plt Count MPV Immature Gran % Neutrophils % Lymphocytes % Monocytes % Eosinophils % Basophils % Nucleated RBC % Absolute Neutrophils Absolute Lymphocytes Absolute Monocytes Absolute Eosinophils Absolute Basophils VBG pH 7.39 VBG pCO2 48 VBG pO2 73 VBG HCO3 29 H VBG Total CO2 25 VBG O2 Saturation 96 VBG Base Excess 4 H Sodium 137 Potassium 3.9 Chloride 100 Carbon Dioxide 29.5 Anion Gap 7.5 BUN 11 Creatinine 0.8 Est GFR (CKD-EPI 2020) 92.54 Glucose 164 H Calcium 8.3 L Magnesium Total Bilirubin AST ALT Alkaline Phosphatase Troponin I Cancelled NT-Pro-B Natriuret Pep Total Protein Albumin Procalcitonin < 0.10 TSH COVID-19 Source SARS-CoV-2 (PCR) Influenza Type A (PCR) Influenza Type B (PCR) RSV (PCR) 09/05/24 05:40 WBC 8.48 RBC 5.59 H Hgb 17.2 H Hct 52.0 H MCV 93 MCH 30.8 MCHC 33.1 RDW 12.3 Plt Count 204 MPV 9.4 Immature Gran % 0.4 Neutrophils % 87.5 Lymphocytes % 8.8 Monocytes % 3.1 Eosinophils % 0.1 Basophils % 0.1 Nucleated RBC % 0.0 Absolute Neutrophils 7.42 H Absolute Lymphocytes 0.75 L Absolute Monocytes 0.26 Absolute Eosinophils 0.01 Absolute Basophils 0.01 VBG pH VBG pCO2 VBG pO2 VBG HCO3 VBG Total CO2 VBG O2 Saturation VBG Base Excess Sodium 139 Potassium 3.9 Chloride 100 Carbon Dioxide 29.7 Anion Gap 9.3 BUN 18 Creatinine 0.9 Est GFR (CKD-EPI 2020) 80.34 Glucose 173 H Calcium 8.7 Magnesium Total Bilirubin 0.54 AST 25 ALT 23 Alkaline Phosphatase 64 Troponin I NT-Pro-B Natriuret Pep Total Protein 7.5 Albumin 3.3 L Procalcitonin TSH COVID-19 Source SARS-CoV-2 (PCR) Influenza Type A (PCR) Influenza Type B (PCR) RSV (PCR) Time Spent with Patient Time Spent with Patient: 35-49 minutes Time was spent: preparing to see the patient(eg.review tests), obtaining and/or reviewing separately otained hiistory, ordering medications,tests, procedures, referring, communicating with other health direct care provider, indepentently interpreting results, counseling the patient and care coordination
--- NOTE | 2024-09-05 11:07 | PHACLINREV_ITS ---
Pharmacy Admission Review Admission Clinical Review Admission Pharmacy Review: Influenza A (Acute) Obesity hypoventilation syndrome (Acute) [id number] deficiency carrier (Acute) Asthma-COPD overlap syndrome (Acute) Tobacco abuse (Acute) Chronic anxiety (Acute) Penicillins Allergy (Intermediate, Verified 09/04/24 15:02) Hives duloxetine (From Cymbalta) Allergy (Unknown, Verified 09/04/24 15:02) Visual Disturbances house dust Allergy (Verified 09/04/24 15:02) Other (See Comment) ropinirole (From Requip) Adverse Reaction (Intermediate, Verified 09/04/24 15:02) hallucinate / confusion Resuscitation Status Full Code Height 5 ft 2 in Weight 131.542 kg Pharmacy Admission Review Renal Dosing Renal Dosing: BUN 18 mg/dL (7-18) 09/05/24 05:40 Creatinine 0.9 mg/dL (0.55-1.02) 09/05/24 05:40 Medications needing adjustments: Reviewed (CrCl 103.03 mL/min) List of meds needing interventions: Current medications are okay Anticoagulation Anticoagulation: Hgb 17.2 g/dL (11.2-15.7) H 09/05/24 05:40 Hct 52.0 % (36.0-46.0) H 09/05/24 05:40 Plt Count 204 10^3/uL (130-400) 09/05/24 05:40 Creatinine 0.9 mg/dL (0.55-1.02) 09/05/24 05:40 DVT Prophylaxis: Reviewed Medications: Enoxaparin (60mg BID - BMI 53) Opiate Usage Evaluate Pain Scale/Pains Meds: Reviewed (morphine 1mg q4h PRN - no doses given) Scheduled Bowel Reg ordered if on Opiates?: No (PRN miralax/docusate) Relevant Labs Relevant Labs: Sodium 139 mmol/L (136-145) 09/05/24 05:40 Potassium 3.9 mmol/L (3.5-5.1) 09/05/24 05:40 Chloride 100 mmol/L (98-107) 09/05/24 05:40 Magnesium 1.7 mg/dL (1.8-2.4) L 09/04/24 15:00 Electrolytes, C-Reactive P, ESR: Reviewed (Asked provider about repeat magnesium level this morning (was not ordered) - provider looking into, glucose 173 at 05 40 - is on IV methylprednisolone) Cardiac Review Cardiac Review: Troponin I Cancelled 09/04/24 18:02 NT-Pro-B Natriuret Pep 156 pg/mL (<300) 09/04/24 15:00 Blood Pressure : Heart Rate 151/85 : 97 0800 Blood Pressure : Heart Rate 130/80 : 94 0601 Blood Pressure : Heart Rate 108/75 : 96 0404 Blood Pressure : Heart Rate 118/53 : 88 0226 Blood Pressure : Heart Rate 121/76 : 90 0002 BP, HR, EF%: Reviewed (RR 28 and Ox 91 - oxygen flow rate 4) QTc Review QTc: Reviewed (436 from 09/04/24) IV to PO Switch IV Medications: Reviewed (lorazepam, methylprednisolone, morphine and pantoprazole) Home Meds Home Med List reviewed: Reviewed Relevent Home Meds Not ordered & why?: Advair (substituted with Symbicort per pharmacy protocol) Current Meds Current Medication Order Review: Intervened Comments: Tamiflu day 1 - influenza A positive Changed IV access from ED Pharmacy Antibiotic Review Relevant Labs: Relevant Labs 09/04/24 18:40 Procalcitonin < 0.10
--- NOTE | 2024-09-05 11:18 | DI.RAD_ITS ---
Exam(s) XR CHEST 2V PA LATERAL EXAM: XR CHEST 2V PA LATERAL CLINICAL HISTORY: sob TECHNIQUE: 2D digital imaging was performed of the chest. Two images were obtained. PA and lateral views were obtained. COMPARISON: CR XR CHEST 2V PA LATERAL from 10/23/2023 CR XR PORTABLE CHEST AP from 09/04/2024 FINDINGS: MEDIASTINUM: Normal. HEART: Normal. PULMONARY VASCULATURE: Normal. LUNGS: No focal consolidating infiltrates. PLEURAL SPACE: No pleural effusion or pneumothorax. BONE:Within normal limits for the patient's age. OTHER FINDINGS:Normal. IMPRESSION: No acute pulmonary findings. DATA REPOSITORY: RADIATION DOSE DELIVERED:
[2024-09-05] MEDS: Insulin Aspart 300 UNITS/3 ML PEN SC ×2 (11:51→17:29)
[2024-09-05 12:56] LABS: HCG Qual (Serum) Negative
--- NOTE | 2024-09-05 14:38 | W.NUTRFU ---
Date of service: 09/05/24 Time of Service: 11:00 Nutrition Note NOTE: received consult request for diabetes education/mgt Pt is 44yo female admitted with copd, flu, acute resp failure. Current BMI congruent with class III obesity, compounding her difficulties with breathing - experiences GABY as well. PT lying in bed on visit. [facility] with high glucose 173 fasting this morning. High glucose complicated by inhalers and steroids she is currently on. last a1c in chart was 5.5 back in 2013. Pt recalls an aunt and grandparent with diabetes so is a genetic risk as well. Pt relayed that she gained a significant amount of weight due to undiagnosed hypothyroid for some time. She states insurance has denied GLP-1 rx We discussed the possibility of getting togethe in oupatient environment to work on her goals for weight loss and any diffiulties with glucose mgt. Will change diet order to carb consistent to help with elevated glucose levels. Would recommend looking into GLP-1 again and repeat A1c. Will monitor glucose trends, po intake, and offer any appropriate education before discharge. Will flag myself to contact [facility]annah after discharge to offer outpatient support Time Spent in Nutritional Counseling and Treatment: 10 min
--- NOTE | 2024-09-05 15:24 | INITIAL_ITS ---
Date of service: 09/05/24 Time of Service: 11:30 Care Management Initial Assmt Initial Assessment Reason for Hospitalization: respiratory distress Functional Status/Living Situation Patient Presentation: Judie was admitted yesterday with c/o acute respiratory failure. She began 2 nights prior with some increased work of breathing, and it just progressively got worse. She lives alone, and called EMS. She uses home O2, 2L at baseline, but required additional O2 from EMS as well as nebulizer treatments on route to the hospital. Judie was found to also be FluA positive, and was admitted to the ICU for further care. Judie is currently on 4L nc and has been moved from ICU to the med surg floor. When CM met with Judie, she was sitting up in the bedside chair. She was noted to be weezy, and though able to speak in full sentences, she did get SOB with talking. Judie feels like she was hit hard with the flu. Judie lives alone in a trailer in [facility]. Judie's main concern for CM today is that she is losing the lorne in the trailer, and she needs a new porch. Judie placed a referral to [facility]. [facility] is aware of some programs/grants that may be able to help Judie pay for the work that needs to be done. Fredi was also contacted, as was Judie's PCP office to inform of this need. Town of Residence: [facility] Resides with: Alone (Judie's boyfriend sometimes stays with her, but does not live there.) Significant Other/Family: Local (Mom, Taina, lives in [facility]) Natural Supports: boyfriend, mother. Employment Status: Disabled (due to chronic poor respiratory status) Instrumental Activities of Daily Living (ADLs): Independent Medications Medication Management: No Issues/Barriers identified Physical Functioning/Mobility Assistive Device: home O2 through [employer] Advance Directives Advance Directives: Do you have an Advance Directive: N 03/15/21 13:57 AD On File at [facility]: N 03/15/21 13:57 Date Asked 09/04/24 09/04/24 15:28 AD Date Reviewed COLST On File at [facility] COLST Date Scanned Code Status Resuscitation Status Full Code Portal Pt does not currently have a portal and education provided: Yes Insurance Coverage/Financial Issues Insurance: Medicare and Medicaid Financial Issues: yes, struggles to pay for any extras Care Team Visit Care Team Role Provider Type Trudi Del Real Primary Care Provider [facility] STAFF PHYSICIAN Giovanna Patel RDN, [facility] Other Providers DENTAL FINANCIAL COORDINATOR Viviane Starks Other Providers DENTAL FINANCIAL COORDINATOR Jalil Jessica RDN Other Providers DENTAL FINANCIAL COORDINATOR Sahara Montero MD Emergency Provider [facility] STAFF PHYSICIAN Vamshi Wiggins MD Admit Provider [facility] STAFF PHYSICIAN Attending Provider Discharge Potential Discharge Needs: PCP F/U Appt (pulmonary f/u) Anticipated Barriers to Discharge: None Identified Patient/Family Education Needs: Review discharge instructions, discuss Ask Me Three Transportation: Private vehicle Plan: Anticipate that Judie will be discharged in the next couple of days with no new services. She will f/u with her PCP and pulmonology, and per her plan of care. Judie will f/u with [facility] at a phone appointment made for 09/08 at 1pm for assistance with her lorne issue. PFSH All Active Problems (Updated 09/04/24 @ 21:02 by Sahara Montero MD) Acute exacerbation of chronic obstructive pulmonary disease (Acute) Influenza A (Acute) Acute respiratory failure with hypoxia and hypercarbia (Acute) Influenza A (Acute) Ganglion cyst of dorsum of left wrist (Acute) Obesity hypoventilation syndrome (Acute) Sleep apnea, obstructive (Chronic) Hemoptysis (Acute) Obesity (Chronic) Livedo reticularis (Acute) Tcbjs-[id number] deficiency carrier (Acute) Phenotype MS Asthma-COPD overlap syndrome (Acute) Tobacco abuse (Acute) Urge incontinence (Acute) Hearing loss (Acute) right ear Dyspareunia (Acute) Edema (Acute) SOB (shortness of breath) (Acute) Dog bite of left thigh with infection (Acute) Dog bite (Acute) Cellulitis of left thigh (Acute) Chronic anxiety (Acute) Otorrhea of both ears (Acute) Smoker (Acute) Hoarseness of voice (Acute) Bilateral hearing loss (Acute) Central perforation of tympanic membrane, left ear (Acute) Medical History Abdominal pain Chest pain Chills (without fever) Chronic obstructive pulmonary disease Depression with anxiety Dyspepsia Easy bruising Hip pain History of posttraumatic stress disorder (PTSD) Human papillomavirus Impaired swallowing Lower back pain 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 Pleuritic chest pain Skin lesion Suicidal ideation Thrush, oral Unresolved grief Wheezing Family History Mother Asthma COPD (chronic obstructive pulmonary disease) Maternal Grandmother COPD (chronic obstructive pulmonary disease) Lung cancer Aunt COPD (chronic obstructive pulmonary disease) Aunt COPD (chronic obstructive pulmonary disease) Social History Smoking/Tobacco Use Status: Current every day Tobacco Type: cigarettes Smoking packs per day: 1.5 Smoking cigarettes per day: 30.0 Smoking risk assessment performed?: Yes Alcohol Intake: former Drug use: Daily Substance use type: marijuana Housing: other Do you feel safe at home: Yes Do you feel safe in your relationship?: Yes Readmission Within the Past 30 Days Yes or No: No SDOH(Care Management) Screening Will the Patient Participate in the Screening?: Yes Do you worry about having a steady place to live?: yes Problems where you live: unsafe lorne/stairs In the past 12 months, have you had to go without electric, gas, oil or water in your home?: no Have you or anyone in your house had to go without enough food to eat?: yes Has lack of transportation kept you from medical appointments or from doing things needed for daily living?: no Has anyone in your support network made you feel unsafe for any reason?: no Health Related Social Needs Health related social needs: inadequate housing(Z59.1), housing instability, housed, with risk of homelessness(Z59.811) and food insecurity(Z59.41) Health related social needs details: Referral placed with [facility], [facility] and [facility] recommended. PCP office notified.
--- NOTE | 2024-09-05 15:30 | W.PC.ACHO ---
Registration Status: Primary Language: Preferred Language: ED Information & Data Chief Complaint SOB 09/04/24 15:35 Triage Note Pt arrives to ED c/o SOB 09/04/24 14:54 since Thursday - worse today. 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 Skin lesion Depression with anxiety Human papillomavirus Pleuritic chest pain Chills (without fever) Abdominal pain Easy bruising Dyspepsia Thrush, oral Chest pain Impaired swallowing History of posttraumatic stress disorder (PTSD) Unresolved grief Lower back pain Suicidal ideation Hip pain Chronic obstructive pulmonary disease Most Recent Vital Signs Temperature 36.7 C 09/05/24 14:02 Temperature Source Temporal Artery Scan 09/05/24 14:02 Pulse 107 H 09/05/24 12:01 Pulse 103 H 09/05/24 12:02 Respiratory Rate 22 09/05/24 12:02 Respiratory Effort Labored, Incrsd Work of Breathing 09/04/24 18:15 Respiratory Depth Shallow 09/04/24 18:15 Respiratory Pattern Tachypnea 09/04/24 18:15 Blood Pressure 149/95 H 09/05/24 12:01 Blood Pressure Mean 106 09/05/24 12:01 Blood Pressure Position Sitting 09/04/24 16:09 Pulse Oximetry 93 09/05/24 14:00 Oxygen Delivery Method Nasal Cannula 09/05/24 14:02 Oxygen Flow Rate 4 09/05/24 11:52 Fraction of Inspired Oxygen (FIO2) 28 09/05/24 08:35 Pain Level 6 09/04/24 20:26 Allergies Penicillins Allergy (Intermediate, Verified 09/04/24 15:02) Hives duloxetine (From Cymbalta) Allergy (Unknown, Verified 09/04/24 15:02) Visual Disturbances house dust Allergy (Verified 09/04/24 15:02) Other (See Comment) sneezing ropinirole (From Requip) Adverse Reaction (Intermediate, Verified 09/04/24 15:02) hallucinate / confusion Precautions Isolation Droplet precaution 09/04/24 15:04 Active Medications Generic Name Dose Route Start Last Admin Trade Name Freq PRN Reason Stop Dose Admin Albuterol/Ipratropium 3 ml 09/05/24 00:00 09/05/24 11:52 Albuterol/Ipratropium 3 Ml Upd Vial UPD 3 ml Q6H ELIAN Administration Budesonide/Formoterol Fumarate 2 puff 09/04/24 20:00 09/05/24 08:43 Budesonide/Formoterol 160/4.5 6 Gm 60 Puff Inh IH 2 puffs BID ELIAN Administration Bupropion HCl 300 mg 09/05/24 08:30 09/05/24 08:04 Bupropion-Xl 150 Mg Tabcr PO 300 mg DAILY ELIAN Administration Albuterol Sulfate 10 mg/ 0 mg 09/04/24 15:15 09/04/24 15:15 Sodium Chloride 9 ml UPD 10 mg DIRECTED ELIAN Administration Enoxaparin Sodium 60 mg 09/04/24 20:00 09/05/24 08:04 Enoxaparin 60 Mg/0.6 Ml Syr SC 60 mg BID ELIAN Administration Insulin Aspart 0 units 09/05/24 12:00 09/05/24 11:51 Insulin Aspart 300 Units/3 Ml Pen SC 2 unit 0800,1200,1700 ELIAN Administration Protocol Levothyroxine Sodium 200 mcg 09/05/24 06:00 09/05/24 06:43 Levothyroxine 100 Mcg Tab PO 200 mcg DAILY@0600 ELIAN Administration Lorazepam 0.5 mg 09/04/24 18:03 09/05/24 09:53 Lorazepam 2 Mg/Ml Vial IVP 0.5 mg Q4H PRN PRN Administration Methylprednisolone Sodium Succinate 40 mg 09/04/24 18:00 09/05/24 09:53 Methylprednisolone Succ 40 Mg Vial IVP 40 mg Q8H ELAIN Administration Nicotine 14 mg 09/04/24 18:51 09/04/24 20:26 Nicotine 14 Mg/24 Hr Patch TD 14 mg DAILY PRN PRN Administration Oseltamivir Phosphate 75 mg 09/04/24 20:00 09/05/24 08:06 Oseltamivir 75 Mg Cap PO 75 mg BID ELIAN Administration Pantoprazole Sodium 40 mg 09/04/24 20:00 09/04/24 20:23 Pantoprazole 40 Mg Vial IVP 40 mg Q24H ELIAN Administration Sodium Chloride 0 ml 09/04/24 15:02 09/05/24 09:59 Normal Saline Flush 10 Ml Syr IVP 20 ml PRN PRN Administration Sodium Chloride 0 ml 09/04/24 20:00 09/05/24 08:05 Normal Saline Flush 10 Ml Syr IVP 20 ml BID ELIAN Administration Sodium Chloride 0 ml 09/04/24 15:02 09/05/24 09:54 Normal Saline 10 Ml Vial IJ 10 ml DIRECTED PRN Administration Tiotropium [place] 2 puff 09/05/24 08:30 09/05/24 08:43 Tiotropium [place]-Respimat 10 Puff Inh IH 2 inh DAILY ELIAN Administration IV IV Catheter Type [Right Saline Lock Antecubital] IV Catheter Type [Left Saline Lock Antecubital] IV Catheter Gauge [Right 18 Antecubital] IV Catheter Gauge [Left 18 Antecubital] Diet Orders Category Date Time Status Heart Healthy Eating [DIET] Nutrition 09/05/24 Breakfast Active Diagnostics 09/05/24 09/04/24 09/04/24 Range/Units 05:40 20:55 18:40 WBC 8.48 (4.4-10.8) 10^3/uL RBC 5.59 H (3.93-5.22) 10^6/uL Hgb 17.2 H (11.2-15.7) g/dL Hct 52.0 H (36.0-46.0) % MCV 93 (80-95) fL MCH 30.8 (27.0-33.0) pg MCHC 33.1 (32.0-36.0) % RDW 12.3 (11.7-14.6) % Plt Count 204 (130-400) 10^3/uL MPV 9.4 (8.0-11.0) fL Immature Gran % 0.4 % Neutrophils % 87.5 % Lymphocytes % 8.8 % Monocytes % 3.1 % Eosinophils % 0.1 % Basophils % 0.1 % Nucleated RBC % 0.0 (0.0-0.3) % Absolute Neutrophils 7.42 H (1.2-6.7) 10^3/uL Absolute Lymphocytes 0.75 L (1.2-3.4) 10^3/uL Absolute Monocytes 0.26 (0.1-0.8) 10^3/uL Absolute Eosinophils 0.01 (0.0-0.7) 10^3/uL Absolute Basophils 0.01 (0.0-0.2) 10^3/uL VBG pH 7.39 (7.31-7.41) VBG pCO2 48 (41-51) mmHg VBG pO2 73 mmHg VBG HCO3 29 H (23-28) mmol/L VBG Total CO2 25 (24-29) mmol/L VBG O2 Saturation 96 % VBG Base Excess 4 H (-2-3) mmol/L Sodium 139 137 (136-145) mmol/L Potassium 3.9 3.9 (3.5-5.1) mmol/L Chloride 100 100 (98-107) mmol/L Carbon Dioxide 29.7 29.5 (21.0-32.0) mmol/L Anion Gap 9.3 7.5 (3-11) mmol/L BUN 18 11 (7-18) mg/dL Creatinine 0.9 0.8 (0.55-1.02) mg/dL Est GFR (CKD-EPI 2020) 80.34 92.54 (mL/min/1.73m2) Glucose 173 H 164 H (74-106) mg/dL Calcium 8.7 8.3 L (8.5-10.1) mg/dL Magnesium (1.8-2.4) mg/dL Total Bilirubin 0.54 (0.2-1.0) mg/dL AST 25 (15-37) U/L ALT 23 (14-59) U/L Alkaline Phosphatase 64 (46-116) U/L Troponin I (<or=51) ng/L NT-Pro-B Natriuret Pep (<300) pg/mL Total Protein 7.5 (6.4-8.2) g/dL Albumin 3.3 L (3.4-5.0) g/dL Procalcitonin < 0.10 ng/mL TSH (0.36-3.74) uIU/mL Serum HCG, Qual Negative COVID-19 Source SARS-CoV-2 (PCR) (Negative) Influenza Type A (PCR) (Negative) Influenza Type B (PCR) (Negative) RSV (PCR) (Negative) 09/04/24 09/04/24 09/04/24 Range/Units 18:02 16:33 15:20 WBC (4.4-10.8) 10^3/uL RBC (3.93-5.22) 10^6/uL Hgb (11.2-15.7) g/dL Hct (36.0-46.0) % MCV (80-95) fL MCH (27.0-33.0) pg MCHC (32.0-36.0) % RDW (11.7-14.6) % Plt Count (130-400) 10^3/uL MPV (8.0-11.0) fL Immature Gran % % Neutrophils % % Lymphocytes % % Monocytes % % Eosinophils % % Basophils % % Nucleated RBC % (0.0-0.3) % Absolute Neutrophils (1.2-6.7) 10^3/uL Absolute Lymphocytes (1.2-3.4) 10^3/uL Absolute Monocytes (0.1-0.8) 10^3/uL Absolute Eosinophils (0.0-0.7) 10^3/uL Absolute Basophils (0.0-0.2) 10^3/uL VBG pH 7.27 L (7.31-7.41) VBG pCO2 66 H* (41-51) mmHg VBG pO2 52 mmHg VBG HCO3 31 H (23-28) mmol/L VBG Total CO2 27 (24-29) mmol/L VBG O2 Saturation 83 % VBG Base Excess 4 H (-2-3) mmol/L Sodium (136-145) mmol/L Potassium (3.5-5.1) mmol/L Chloride (98-107) mmol/L Carbon Dioxide (21.0-32.0) mmol/L Anion Gap (3-11) mmol/L BUN (7-18) mg/dL Creatinine (0.55-1.02) mg/dL Est GFR (CKD-EPI 2020) (mL/min/1.73m2) Glucose (74-106) mg/dL Calcium (8.5-10.1) mg/dL Magnesium (1.8-2.4) mg/dL Total Bilirubin (0.2-1.0) mg/dL AST (15-37) U/L ALT (14-59) U/L Alkaline Phosphatase (46-116) U/L Troponin I Cancelled 8 (<or=51) ng/L NT-Pro-B Natriuret Pep (<300) pg/mL Total Protein (6.4-8.2) g/dL Albumin (3.4-5.0) g/dL Procalcitonin ng/mL TSH (0.36-3.74) uIU/mL Serum HCG, Qual COVID-19 Source Nasopharynx SARS-CoV-2 (PCR) Negative (Negative) Influenza Type A (PCR) Positive A (Negative) Influenza Type B (PCR) Negative (Negative) RSV (PCR) Negative (Negative) 09/04/24 Range/Units 15:00 WBC (4.4-10.8) 10^3/uL RBC (3.93-5.22) 10^6/uL Hgb (11.2-15.7) g/dL Hct (36.0-46.0) % MCV (80-95) fL MCH (27.0-33.0) pg MCHC (32.0-36.0) % RDW (11.7-14.6) % Plt Count (130-400) 10^3/uL MPV (8.0-11.0) fL Immature Gran % % Neutrophils % % Lymphocytes % % Monocytes % % Eosinophils % % Basophils % % Nucleated RBC % (0.0-0.3) % Absolute Neutrophils (1.2-6.7) 10^3/uL Absolute Lymphocytes (1.2-3.4) 10^3/uL Absolute Monocytes (0.1-0.8) 10^3/uL Absolute Eosinophils (0.0-0.7) 10^3/uL Absolute Basophils (0.0-0.2) 10^3/uL VBG pH (7.31-7.41) VBG pCO2 (41-51) mmHg VBG pO2 mmHg VBG HCO3 (23-28) mmol/L VBG Total CO2 (24-29) mmol/L VBG O2 Saturation % VBG Base Excess (-2-3) mmol/L Sodium 137 (136-145) mmol/L Potassium 3.6 (3.5-5.1) mmol/L Chloride 100 (98-107) mmol/L Carbon Dioxide 31.6 (21.0-32.0) mmol/L Anion Gap 5.4 (3-11) mmol/L BUN 9 (7-18) mg/dL Creatinine 0.8 (0.55-1.02) mg/dL Est GFR (CKD-EPI 2020) 92.54 (mL/min/1.73m2) Glucose 118 H (74-106) mg/dL Calcium 8.5 (8.5-10.1) mg/dL Magnesium 1.7 L (1.8-2.4) mg/dL Total Bilirubin 0.66 (0.2-1.0) mg/dL AST 29 (15-37) U/L ALT 27 (14-59) U/L Alkaline Phosphatase 70 (46-116) U/L Troponin I 11 (<or=51) ng/L NT-Pro-B Natriuret Pep 156 (<300) pg/mL Total Protein 7.7 (6.4-8.2) g/dL Albumin 3.5 (3.4-5.0) g/dL Procalcitonin ng/mL TSH 0.71 (0.36-3.74) uIU/mL Serum HCG, Qual COVID-19 Source SARS-CoV-2 (PCR) (Negative) Influenza Type A (PCR) (Negative) Influenza Type B (PCR) (Negative) RSV (PCR) (Negative) 09/05/24 12:36 Blood Culture - Pending Blood 09/05/24 12:21 Blood Culture - Pending Blood [id number] Documentation Fingerstick Glucose Start: 09/05/24 11:41 Freq: .ACHS Status: Active Protocol: Activity Type Activity Date Activity User E-sign Co-sign Detail Recorded Client Recorded Date Recorded By Document 09/05/24 11:49 BKG DAEMON(3) [id number] 09/05/24 11:50 BKG DAEMON(4) POC Urine Test Start: 09/05/24 10:52 Freq: .Urine Test Status: Complete Protocol: Activity Type Activity Date Activity User E-sign Co-sign Detail Recorded Client Recorded Date Recorded By Document 09/05/24 12:31 NS [id number] 09/05/24 12:31 NS Intake and Output - 24 Hour Total 09/04/24 14:51 thru 09/05/24 12:00 Intake Total 1120 Output Total 1500 Balance -380 Weight 131.542 kg Intake: IV 50 Oral 1070 Output: Urine 1500 Other: Urine Color Yellow Urine Appearance Clear Urine Odor None Falls Risk Assessment History of Falls No History 09/04/24 18:15 Contributing Factors Unstable,Incontinence 09/04/24 18:15 Ambulatory Aids Independent 12/15/24 18:15 Tubes/Lines With any additional score 09/04/24 18:15 Gait Evaluation No gait disturbance 09/04/24 18:15 Cognition No cognitive impairment 09/04/24 18:15 Fall Total Score 26 09/04/24 18:15 Level of Risk Moderate Risk 09/04/24 18:15 Problems (Last Reviewed 06/12/23 @ 13:04 by Polly Real MD) Influenza A (Acute) Obesity hypoventilation syndrome (Acute) Sleep apnea, obstructive (Chronic) Obesity (Chronic) 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 Target SpO2 88-92%. Baseline O2 requirement is 2L via nasal cannula. DME: [facility]. Pt also states she wears a BiPAP at home every night. DME: [facility]. Pt states she takes Advair every day and is supposed to also take Spiriva, she has been out of Spiriva for about a month though. Initialized on 09/04/24 15:13 - END OF NOTE v v v v v v v v v Sending and/or Receiving Nurses: Please use comment section below to note any information pertinent to the patient hand-off not included above. Information / Comments: PT arrives to 214 from ICU via Report received from: CINDY Melo 1500
--- NOTE | 2024-09-05 16:30 | RESPIRATORY ---
09/05/2024 Home BIPAP set up and inspected; pt wears 2L in-line with BIPAP. MAX IPAP 25, MIN EPAP 16. DME [facility], [place]
--- NOTE | 2024-09-05 18:03 | RESPIRATORY ---
09/05/2024 Pt seems confused, forgot that I was the same person who walked to the opposite side of the bed, RN and MD aware, VBG ordered.
[2024-09-05 18:24] LABS: BE (Venous) 7 mmol/L (-2-3); HCO3 (Venous) 32 mmol/L (23-28); O2 Sat (Venous) 94 %; TCO2 (Venous) 27 mmol/L (24-29); pCO2 (Venous) 51 mmHg (41-51); pO2 (Venous) 64 mmHg
[2024-09-05] MEDS: Pantoprazole 40 MG VIAL IVP (19:38)
[2024-09-05] MEDS: Nystatin POWDER 15 GM JAR TP (20:12)
[2024-09-06] VITALS (14 sets, daily range): BP systolic 119–151; BP diastolic 71–90; PULSE 78–102; RESP 8–20; TEMP 36.3–37.7; O2SAT 90–96
[2024-09-06] MEDS: methylPREDNISolone SUCC 40 MG VIAL IVP ×3 (02:47→17:23)
[2024-09-06] MEDS: Albuterol/Ipratropium 3 ML UPD VIAL UPD ×4 (05:34→18:32)
[2024-09-06] MEDS: Levothyroxine 100 MCG TAB 200 MCG PO (05:34)
[2024-09-06 06:43] LABS: Abs Immature Grans 0.05 10^3/uL (0.0-0.06); Absolute Basophil Count 0.02 10^3/uL (0.0-0.2); Absolute Eosinophil Count 0.06 10^3/uL (0.0-0.7); Absolute Lymphocyte Count 1.07 10^3/uL (1.2-3.4); Absolute Monocyte Count 0.44 10^3/uL (0.1-0.8); Absolute Neutrophil Count 9.96 10^3/uL (1.2-6.7); Basophils % 0.2 %; Eosinophils % 0.5 %; HCT 50.1 % (36.0-46.0); HGB 16.8 g/dL (11.2-15.7); Immature Grans % 0.4 %; Lymphocytes % 9.2 %; MCH 30.8 pg (27.0-33.0); MCHC 33.5 % (32.0-36.0); MCV 92 fL (80-95); MPV 9.7 fL (8.0-11.0); Monocytes % 3.8 %; Neutrophils % 85.9 %; Platelet Count 247 10^3/uL (130-400); RBC 5.46 10^6/uL (3.93-5.22); RDW 12.4 % (11.7-14.6); RDW-SD 41.5 fL
[2024-09-06 06:51] LABS: ESR 15 mm/hr (0-20)
[2024-09-06 07:00] LABS: ALT 39 U/L (14-59); AST 32 U/L (15-37); Albumin 3.2 g/dL (3.4-5.0); Alkaline Phosphatase 56 U/L (46-116); Anion Gap 7.3 mmol/L (3-11); BUN 20 mg/dL (7-18); Bilirubin, Total 0.44 mg/dL (0.2-1.0); C-Reactive Protein 1.74 mg/dL (<or=0.5); CO2 29.7 mmol/L (21.0-32.0); Calcium 8.7 mg/dL (8.5-10.1); Chloride 101 mmol/L (98-107); Glucose 213 mg/dL (74-106); Potassium 4.1 mmol/L (3.5-5.1); Sodium 138 mmol/L (136-145)
[2024-09-06] MEDS: MORPHine 2 MG/ML SYR 1 MG IVP (07:34)
[2024-09-06] MEDS: buPROPion-XL 150 MG TABCR 300 MG PO (07:35)
[2024-09-06] MEDS: Oseltamivir 75 MG CAP PO ×2 (07:35→20:00)
[2024-09-06] MEDS: Enoxaparin 60 MG/0.6 ML SYR SC ×2 (07:35→20:01)
[2024-09-06] MEDS: Normal Saline Flush 10 ML SYR IVP ×4 (07:36→21:06)
[2024-09-06] MEDS: Nystatin POWDER 15 GM JAR TP ×3 (08:00→20:00)
[2024-09-06] MEDS: Insulin Aspart 300 UNITS/3 ML PEN SC ×3 (08:00→17:23)
[2024-09-06] MEDS: Tiotropium Bromide-Respimat 10 PUFF INH 2 PUFF IH (08:10)
[2024-09-06] MEDS: Budesonide/Formoterol 160/4.5 6 GM 60 PUFF INH IH ×2 (08:10→20:02)
[2024-09-06] MEDS: Magnesium Oxide 400 MG TAB PO (08:43)
[2024-09-06] MEDS: Pantoprazole 40 MG TABCR PO (12:02)
--- NOTE | 2024-09-06 14:35 | W.PM.PROGNOT ---
Date of Service Date of service: 09/06/24 Time of Service: 14:35 Assessment and Plan Assessment and plan (1) Tobacco abuse: Status: Acute Assessment and plan: pt will be placed on nicotine supplementation while an inpatient. Recommend complete and total cessation 09/05/24 will continue with nicoderm 09/06/24 Discussed tobacco cessation with over 10 minutes of counseling (2) Chronic anxiety: Status: Acute Assessment and plan: Will start ativan 2/2 anxiety associated with air hunger. 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 Recommend close follow up (4) Obesity: Status: Chronic Assessment and plan: Will consult nutrition in am for recommendations (5) Asthma-COPD overlap syndrome: Status: Acute Assessment and plan: POC discussed with RT. Will add symbicort and spiriva as well as continued albuterol and solumedrol Pt started on duoneb as well 09/06/24 Respiratory status continues to improve. CW current rx (6) Influenza A: Status: Acute Assessment and plan: Add tamifu c/w tamiflu for another day 09/06/24 Tamiflu course completed Subjective Subjective Interval history since last seen: pt seen and examined in her room this am and states her respiratory status has improved. POC dw pt and bedside nurse during MDR Exam Narrative Exam Narrative: HEENT normocephalic atraumatic mucous membranes moist oropharynx is clear Neck: No lymphadenopathy no JVD no thyroid megaly but enlarged circumference of the neck Cardiovascular: Tachycardia but no murmur rubs or gallop Lungs: improving aeration with no AMU at this time, still with ins/ex wheeze Abdomen: Obese Extremities: No sinus clubbing or edema Neurologic: Cannot be completely assessed due to underlying condition Psych: aaox3 General: Appears to be in moderate distress Objective Last Vital Signs Temp 36.9 C 09/06/24 11:40 Pulse 87 09/06/24 12:09 Resp 20 09/06/24 11:40 BP 131/71 09/06/24 11:40 Pulse Ox 90 L 09/06/24 12:09 Laboratory Results - last 24 hr 09/05/24 09/06/24 18:18 06:20 WBC 11.60 H RBC 5.46 H Hgb 16.8 H Hct 50.1 H MCV 92 MCH 30.8 MCHC 33.5 RDW 12.4 Plt Count 247 MPV 9.7 Immature Gran % 0.4 Neutrophils % 85.9 Lymphocytes % 9.2 Monocytes % 3.8 Eosinophils % 0.5 Basophils % 0.2 Nucleated RBC % 0.0 Absolute Neutrophils 9.96 H Absolute Lymphocytes 1.07 L Absolute Monocytes 0.44 Absolute Eosinophils 0.06 Absolute Basophils 0.02 ESR 15 VBG pH 7.40 VBG pCO2 51 VBG pO2 64 VBG HCO3 32 H VBG Total CO2 27 VBG O2 Saturation 94 VBG Base Excess 7 H Sodium 138 Potassium 4.1 Chloride 101 Carbon Dioxide 29.7 Anion Gap 7.3 BUN 20 H Creatinine 1.0 Est GFR (CKD-EPI 2020) 70.80 Glucose 213 H Calcium 8.7 Total Bilirubin 0.44 AST 32 ALT 39 Alkaline Phosphatase 56 C-Reactive Protein 1.74 H Total Protein 7.0 Albumin 3.2 L Time Spent with Patient Time Spent with Patient: 35-49 minutes Time was spent: preparing to see the patient(eg.review tests), obtaining and/or reviewing separately otained hiistory, ordering medications,tests, procedures, referring, communicating with other health career services director, indepentently interpreting results, counseling the patient and care coordination
[2024-09-06] MEDS: LORazepam 2 MG/ML VIAL 0.5 MG IVP ×2 (16:28→21:05)
--- NOTE | 2024-09-06 17:00 | RT.EKG_ITS ---
APPROVED REPORT Exam: Resting ECG Reason for Exam: chest tightness Patient Location: I HR:83 bpm ECG Measurements Heart Rate 83 AXIS WI 153 P 60 QRSd 83 QRS -44 QT 363 T 51 QTc 427 Conclusion Sinus rhythm...normal P axis, V-rate 50- 99 Probable inferior infarct, old...Q>35mS, II III aVF Lateral leads are also involved...lat Q or ST-T abnormalities
--- NOTE | 2024-09-06 17:15 | CMPROGNOTE_ITS ---
Date of service: 09/06/24 Time of Service: 14:00 Care Management Progress Note Progress Note Text Progress Note Text: Judie had just come back from the shower when CM met with her today. She enjoyed the shower, but is still not feeling up to par. She was noted to still be on 4L O2, when her baseline is 2L. CM let Judie know of the phone calls that were made yesterday. CM had placed a referral with the [facility], they are aware of some programs that may be able to help her with her her lorne. Melissa SEVILLA, is going to reach out to Judie tomorrow at 1pm via phone. Judie was very pleased with this. Discharge Potential Discharge Needs: PCP F/U Appt and Other (pulmonary) Anticipated Barriers to Discharge: None Identified Patient/Family Education Needs: Review discharge instructions, discuss Ask Me Three Transportation: Private vehicle Plan: Anticipate that Judie will be discharged in the next couple of days with no new services. She will f/u with her PCP and pulmonology, and continue per her plan of care. CM will continue to follow. SDOH(Care Management) Screening Will the Patient Participate in the Screening?: Yes Do you worry about having a steady place to live?: yes Problems where you live: unsafe lorne/stairs In the past 12 months, have you had to go without electric, gas, oil or water in your home?: no Have you or anyone in your house had to go without enough food to eat?: yes Has lack of transportation kept you from medical appointments or from doing thin gs needed for daily living?: no Has anyone in your support network made you feel unsafe for any reason?: no Health Related Social Needs Health related social needs: inadequate housing(Z59.1), housing instability, housed, with risk of homelessness(Z59.811) and food insecurity(Z59.41) Health related social needs details: Referral placed with Cordell SEVILLA recommended. PCP office notified.
[2024-09-06] MEDS: Aspirin 81 MG CHEW 324 MG CH (17:23)
--- NOTE | 2024-09-06 17:32 | NUR.NOTE ---
This nurse was alerted to the fact that pt was experiencing chest tightness and was dyspenic. This nurse went in to evaluate pt and found her to be dyspenic rubbing her chest. Pt states she was anxious about possible being a diabetic when she is over the flu and back to her baseline. This nurse administered 0.5 mg of lorazepam via IV and MD was contacted who verbally ordered an EKG and 4 81 mg chewable aspirin. EKG was obtained and given to provider and pt was provided with aspirin. PT states that tightness has resolved at this time. Tropinin was also ordered and drawn by the lab. Waiting on results at this time. Nursing Note:
[2024-09-06 17:42] LABS: Troponin I 5 ng/L (<or=51)
[2024-09-06] MEDS: Docusate Sodium 100 MG CAP PO (20:00)
[2024-09-06] MEDS: Acetaminophen 325 MG TAB 650 MG PO (20:00)
[2024-09-06] MEDS: Ibuprofen 400 MG TAB 800 MG PO (20:00)
[2024-09-06] MEDS: Nicotine 14 MG/24 HR PATCH TD (20:02)
[2024-09-06 20:16] LABS: HCT 50.7 % (36.0-46.0); HGB 16.6 g/dL (11.2-15.7); MCH 30.7 pg (27.0-33.0); MCHC 32.7 % (32.0-36.0); MCV 94 fL (80-95); MPV 9.6 fL (8.0-11.0); Platelet Count 233 10^3/uL (130-400); RDW 12.3 % (11.7-14.6); RDW-SD 42.5 fL; WBC 11.28 10^3/uL (4.4-10.8)
[2024-09-07] VITALS (14 sets, daily range): BP systolic 127–149; BP diastolic 69–86; PULSE 77–85; RESP 2–22; TEMP 36.2–36.8; O2SAT 88–94
[2024-09-07] MEDS: methylPREDNISolone SUCC 40 MG VIAL IVP ×2 (01:51→10:54)
[2024-09-07] MEDS: Normal Saline Flush 10 ML SYR IVP ×4 (01:52→20:06)
[2024-09-07] MEDS: Albuterol/Ipratropium 3 ML UPD VIAL UPD ×5 (05:24→23:36)
[2024-09-07] MEDS: Levothyroxine 100 MCG TAB 200 MCG PO (05:49)
[2024-09-07] MEDS: Insulin Aspart 300 UNITS/3 ML PEN SC ×3 (07:59→17:27)
[2024-09-07] MEDS: buPROPion-XL 150 MG TABCR 300 MG PO (07:59)
[2024-09-07] MEDS: Enoxaparin 60 MG/0.6 ML SYR SC (07:59)
[2024-09-07] MEDS: Oseltamivir 75 MG CAP PO ×2 (07:59→20:07)
[2024-09-07] MEDS: Magnesium Oxide 400 MG TAB PO (07:59)
[2024-09-07] MEDS: Nystatin POWDER 15 GM JAR TP ×2 (07:59→20:14)
[2024-09-07] MEDS: Tiotropium Bromide-Respimat 10 PUFF INH 2 PUFF IH (08:50)
[2024-09-07] MEDS: Budesonide/Formoterol 160/4.5 6 GM 60 PUFF INH IH ×2 (08:50→20:14)
[2024-09-07] MEDS: Pantoprazole 40 MG TABCR PO (09:54)
--- NOTE | 2024-09-07 14:52 | W.PM.PROGNOT ---
Date of Service Date of service: 09/07/24 Time of Service: 14:52 Assessment and Plan Assessment and plan (1) Tobacco abuse: Status: Acute Assessment and plan: pt will be placed on nicotine supplementation while an inpatient. Recommend complete and total cessation 09/05/24 will continue with nicoderm 09/06/24 Discussed tobacco cessation with over 10 minutes of counseling (2) Chronic anxiety: Status: Acute Assessment and plan: Will start ativan 2/2 anxiety associated with air hunger. Will also add a small dose of morphine (3) Johki-8-ybayqahkihx deficiency carrier: Status: Acute Assessment and plan: PT is seen in the outpatient setting by pulmonology. Recommend close follow up (4) Obesity: Status: Chronic Assessment and plan: Will consult nutrition in am for recommendations (5) Asthma-COPD overlap syndrome: Status: Acute Assessment and plan: POC discussed with RT. Will add symbicort and spiriva as well as continued albuterol and solumedrol Pt started on duoneb as well 09/06/24 Respiratory status continues to improve. CW current rx 09/07/24 Switched over to PO steroids in preperation for possible dc tomorrow (6) Influenza A: Status: Acute Assessment and plan: Add tamifu c/w tamiflu for another day 09/06/24 Tamiflu course completed Subjective Subjective Interval history since last seen: no new complaints, no cough. POC d.w pt and bedside nurse Exam Narrative Exam Narrative: HEENT normocephalic atraumatic mucous membranes moist oropharynx is clear Neck: No lymphadenopathy no JVD no thyroid megaly but enlarged circumference of the neck Cardiovascular: Tachycardia but no murmur rubs or gallop Lungs: improving aeration with no AMU at this time, still with ins/ex wheeze Abdomen: Obese Extremities: No sinus clubbing or edema Neurologic: Cannot be completely assessed due to underlying condition Psych: aaox3 General: No distress Objective Last Vital Signs Temp 36.4 C L 09/07/24 11:33 Pulse 81 09/07/24 13:13 Resp 16 09/07/24 13:07 BP 135/75 09/07/24 11:33 Pulse Ox 93 09/07/24 13:07 Laboratory Results - last 24 hr 09/06/24 09/06/24 17:10 20:00 WBC 11.28 H RBC 5.40 H Hgb 16.6 H Hct 50.7 H MCV 94 MCH 30.7 MCHC 32.7 RDW 12.3 Plt Count 233 MPV 9.6 Troponin I 5 Time Spent with Patient Time Spent with Patient: 25-34 minutes Time was spent: preparing to see the patient(eg.review tests), obtaining and/or reviewing separately otained hiistory, ordering medications,tests, procedures, referring, communicating with other health patient care provider, indepentently interpreting results, counseling the patient and care coordination
--- NOTE | 2024-09-07 17:56 | PDOC.CMPRO ---
Date of service: 09/07/24 Time of Service: 14:30 Care Management Progress Note Progress Note Text Progress Note Text: Judie was sitting up in the bed when CM met with her today. She was back to her baseline of 2L O2, and looked to be breathing pretty comfortably. [facility] did not reach out to her today as scheduled, but she has their # and will reach out on her own. Judie stated that she does not intend to resume smoking. She feels that this illness was tough, and she would like to start taking better care of herself. Discharge Potential Discharge Needs: PCP F/U Appt Anticipated Barriers to Discharge: None Identified Patient/Family Education Needs: Review discharge instructions, discuss Ask Me Three Transportation: Other (Judie was unsure if she would be able to get a private ride) Plan: Anticipate that Judie will be discharged home with no new services. She will f/u with her PCP and pulmonology, and continue per her plan of care. CM will continue to follow. SDOH(Care Management) Screening Will the Patient Participate in the Screening?: Yes Do you worry about having a steady place to live?: yes Problems where you live: unsafe lorne/stairs In the past 12 months, have you had to go without electric, gas, oil or water in your home?: no Have you or anyone in your house had to go without enough food to eat?: yes Has lack of transportation kept you from medical appointments or from doing things needed for daily living?: no Has anyone in your support network made you feel unsafe for any reason?: no Health Related Social Needs Health related social needs: inadequate housing(Z59.1), housing instability, housed, with risk of homelessness(Z59.811) and food insecurity(Z59.41) Health related social needs details: Referral placed with [facility], [facility] and [facility] recommended. PCP office notified.
[2024-09-07] MEDS: LORazepam 2 MG/ML VIAL 0.5 MG IVP (20:05)
[2024-09-07] MEDS: predniSONE 20 MG TAB PO (20:06)
[2024-09-07] MEDS: Enoxaparin 40 MG/0.4 ML SYR SC (20:06)
[2024-09-07] MEDS: Acetaminophen 325 MG TAB 650 MG PO (20:07)
[2024-09-07] MEDS: MORPHine 2 MG/ML SYR 1 MG IVP (23:23)
[2024-09-08] VITALS (8 sets, daily range): BP systolic 148–157; BP diastolic 78–88; PULSE 75–87; RESP 2–19; TEMP 36.1–36.5; O2SAT 91–98
[2024-09-08] MEDS: Albuterol/Ipratropium 3 ML UPD VIAL UPD ×2 (05:05→13:23)
[2024-09-08] MEDS: Levothyroxine 100 MCG TAB 200 MCG PO (05:27)
[2024-09-08] MEDS: Budesonide/Formoterol 160/4.5 6 GM 60 PUFF INH IH (08:40)
[2024-09-08] MEDS: Tiotropium Bromide-Respimat 10 PUFF INH 2 PUFF IH (08:41)
[2024-09-08] MEDS: Insulin Aspart 300 UNITS/3 ML PEN SC ×2 (09:00→12:14)
[2024-09-08] MEDS: Nystatin POWDER 15 GM JAR TP (09:00)
[2024-09-08] MEDS: Magnesium Oxide 400 MG TAB PO (09:04)
[2024-09-08] MEDS: Pantoprazole 40 MG TABCR PO (09:05)
[2024-09-08] MEDS: buPROPion-XL 150 MG TABCR 300 MG PO (09:05)
[2024-09-08] MEDS: predniSONE 20 MG TAB PO (09:05)
[2024-09-08] MEDS: Oseltamivir 75 MG CAP PO (09:05)
[2024-09-08] MEDS: Enoxaparin 40 MG/0.4 ML SYR SC (09:06)
[2024-09-08] MEDS: Normal Saline Flush 10 ML SYR IVP (09:06)
--- NOTE | 2024-09-08 11:41 | PDOC.CMDIS ---
Date of service: 09/08/24 Time of Service: 11:41 LACE Index Scoring Tool Questions: Length of Stay (in days): 4 - 6 Was the patient admitted via the E.D.?: Yes E.D. Visits: 4 Answers: Total Score: 11 Risk of Readmission: High Risk Care Management Discharge Plan Reason for Hospitalization: Respiratory Distress Discharge Plan: Judie will discharge home with no new services. She will be driven via [facility] private vehicle vs family transport. She will follow up with her PCP and discharge plan of care as directed. Referrals to [facility] and [facility] are placed. No new services are ordered. Patient/Family Education Needs: Review discharge instructions, discuss Ask Me Three SDOH Health Related Social Needs: Health related social needs inadequate housing(Z59.1), housing instability, housed, with risk of homelessness(Z59.811), food insecurity(Z59.41) Health related social needs details Referral placed with [facility], [facility] and [facility] recommended. PCP office notified. Health related social needs: inadequate housing(Z59.1), housing instability, housed, with risk of homelessness(Z59.811) and food insecurity(Z59.41) Health related social needs details: Referral placed with [facility], [facility] and [facility] recommended. PCP office notified. Care Management Referrals: [facility] ( CM reached out to [facility] and informed her PCP of her community needs. ) and [facility]
--- NOTE | 2024-09-08 12:59 | W.PM.DS.N ---
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: Status: Acute (4) Obesity: Status: Chronic (5) Asthma-COPD overlap syndrome: Status: Acute (6) Influenza A: Status: Acute Discharge Plan Disposition Patient Disposition: Home Condition: Stable Discharge Details Reason For Visit: Respiratory Distress Admit Date/Time: 09/04/24 17:27 Admit Provider: aVmshi Wiggins Attending Provider: Vamshi Wiggins Primary Care Provider: Trudi Del Real Hospital Course Hospital Course: PT was admitted with respiratory distress which was probably a combination of her underlying alpha-1 antitrypsin deficiency, COPD, asthma, airway obstructive disorder, and the flu. Patient was treated with Tamiflu as well as steroids and inhalers and improved to the point where she was satting at her baseline on 2 L which she uses at home on the the patient has been discharged to which we agreed. I did patent counsel the patient for over 10 minutes regarding tobacco abuse and cessation strategies. Prednisone prescription sent to her pharmacy Home Meds and New Rx's Prescriptions: New prednisone 20 mg Tablet 20 mg PO DAILY Qty: 7 0RF Continued fluticasone propion-salmeterol [Advair HFA] 230-21 mcg/actuation HFA aerosol inhaler 2 puff inhalation BID Qty: 12 12RF Spiriva Respimat 2.5 mcg/actuation mist See Rx Instructions .ROUTE .COMPLEX Qty: 4 12RF Dose Instruction: INHALE TWO PUFFS BY MOUTH EVERY DAY Patient Comments: Pt states she has not used x 1 month 09/04/24 Rx Instructions: INHALE TWO PUFFS BY MOUTH EVERY DAY albuterol sulfate 2.5 mg /3 mL (0.083 %) solution for nebulization See Rx Instructions .ROUTE .COMPLEX Qty: 180 11RF Dose Instruction: USE 1 VIAL IN NEBULIZER EVERY 4 HOURS - as needed Rx Instructions: USE 1 VIAL IN NEBULIZER EVERY 4 HOURS - as needed bupropion HCl [Wellbutrin XL] 300 mg tablet extended release 24 hr 300 mg PO DAILY Patient Comments: levothyroxine 200 mcg tablet 200 mcg PO DAILY Patient Comments: TAKE ONE TABLET BY MOUTH EVERY DAY Discharge Instructions Activity:: Activity as Tolerated Equipment/Supplies:: No Equipment Needed Diet:: As Tolerated Discharge Orders Discharge Orders: Discharge Order (Routine); Ordered 09/08/24 Ordered By: Vamshi Wiggins DS: Summary Summary Time spent discussing smoking cessation with patient: more than 10 minutes Time Spent with Patient providing and/or coordinating discharge services: Greater than 30 minutes Status at Discharge Functional status at discharge: independent ambulation Overall status at discharge: patient is back to baseline Mental Status: mental status grossly normal Speech and Movement: speech and movement normal Mood: congruent mood Affect: normal affect Quality:SDOH Health Related Social Needs: Health related social needs inadequate housing(Z59.1), housing instability, housed, with risk of homelessness(Z59.811), food insecurity(Z59.41) Health related social needs details Referral placed with [facility], Fredi and [facility] recommended. PCP office notified. Health related social needs details: Referral placed with [facility], Fredi and [facility] recommended. PCP office notified. Exam Psych Mental Status: mental status grossly normal Speech and Movement: speech and movement normal Mood: congruent mood Affect: normal affect DS: Data Vitals/I&O Vitals and I&O: Vital Signs Temperature 36.1 C L 09/08/24 11:14 Temperature Source Temporal Artery Scan 09/08/24 11:14 Pulse 86 09/08/24 11:14 Pulse 103 H 09/05/24 12:02 Respiratory Rate 19 09/08/24 11:14 Respiratory Effort Labored, Incrsd Work of Breathing 09/04/24 18:15 Respiratory Depth Shallow 09/04/24 18:15 Respiratory Pattern Tachypnea 09/04/24 18:15 Blood Pressure 148/88 H 09/08/24 11:14 Blood Pressure Mean 106 09/05/24 12:01 Blood Pressure Position Sitting 09/04/24 16:09 Pulse Oximetry 93 09/08/24 11:14 Oxygen Delivery Method Nasal Cannula 09/08/24 11:14 Oxygen Flow Rate 2 09/08/24 11:14 Fraction of Inspired Oxygen (FIO2) 28 09/05/24 08:35 Pain Level 2 09/08/24 11:14 Comment RN notified 09/08/24 11:14 Intake & Output 09/07/24 09/08/24 09/08/24 23:59 11:59 23:59 Intake Total 1230 / 1730 500 / 500 Balance 1230 / 1730 500 / 500 Intake: IV Oral 1220 / 1720 500 / 500 Other: Urine Color Yellow Urine Appearance Clear Comment pT reports she has voided many times in the last few hours. Data Completed and Pending Labs on day of discharge: Preliminary micro results at discharge 09/05/24 12:36 Blood Culture - Preliminary Blood NO GROWTH 48 HOURS 09/05/24 12:21 Blood Culture - Preliminary Blood NO GROWTH 48 HOURS PFSH All Active Problems (Updated 09/04/24 @ 21:02 by Sahara Montero MD) Acute exacerbation of chronic obstructive pulmonary disease (Acute) Influenza A (Acute) Acute respiratory failure with hypoxia and hypercarbia (Acute) Influenza A (Acute) Ganglion cyst of dorsum of left wrist (Acute) Obesity hypoventilation syndrome (Acute) Sleep apnea, obstructive (Chronic) Hemoptysis (Acute) Obesity (Chronic) Livedo reticularis (Acute) Zpqth-4-dejtehdlmsw deficiency carrier (Acute) Phenotype MS Asthma-COPD overlap syndrome (Acute) Tobacco abuse (Acute) Urge incontinence (Acute) Hearing loss (Acute) right ear Dyspareunia (Acute) Edema (Acute) SOB (shortness of breath) (Acute) Dog bite of left thigh with infection (Acute) Dog bite (Acute) Cellulitis of left thigh (Acute) Chronic anxiety (Acute) Otorrhea of both ears (Acute) Smoker (Acute) Hoarseness of voice (Acute) Bilateral hearing loss (Acute) Central perforation of tympanic membrane, left ear (Acute) Medical History Abdominal pain Chest pain Chills (without fever) Chronic obstructive pulmonary disease Depression with anxiety Dyspepsia Easy bruising Hip pain History of posttraumatic stress disorder (PTSD) Human papillomavirus Impaired swallowing Lower back pain 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 Pleuritic chest pain Skin lesion Suicidal ideation Thrush, oral Unresolved grief Wheezing Family History Mother Asthma COPD (chronic obstructive pulmonary disease) Maternal Grandmother COPD (chronic obstructive pulmonary disease) Lung cancer Aunt COPD (chronic obstructive pulmonary disease) Aunt COPD (chronic obstructive pulmonary disease) Social History Smoking/Tobacco Use Status: Current every day Tobacco Type: cigarettes Smoking packs per day: 1.5 Smoking cigarettes per day: 30.0 Smoking risk assessment performed?: Yes Alcohol Intake: former Drug use: Daily Substance use type: marijuana Housing: other Do you feel safe at home: Yes Do you feel safe in your relationship?: Yes Time Spent with Patient Time Spent with Patient: 45-69 minutes Time was spent: preparing to see the patient(eg.review tests), obtaining and/or reviewing separately otained hiistory, ordering medications,tests, procedures, referring, communicating with other health reproductive healthcare assistant, indepentently interpreting results, counseling the patient and care coordination
--- NOTE | 2024-09-08 15:32 | W.PM.HP.N ---
Date of service: 09/08/24 Time of Service: 15:32 History of Present Illness History of Present Illness Chief Complaint: SOB PFSH All Active Problems (Updated 09/09/24 @ 00:05 by BLANCA [place]) Acute exacerbation of chronic obstructive pulmonary disease (Acute) Influenza A (Acute) Acute respiratory failure with hypoxia and hypercarbia (Acute) Ganglion cyst of dorsum of left wrist (Acute) Obesity hypoventilation syndrome (Acute) Sleep apnea, obstructive (Chronic) Hemoptysis (Acute) Livedo reticularis (Acute) Cmdrc-7-waqofnwbmbb deficiency carrier (Acute) Phenotype MS Asthma-COPD overlap syndrome (Acute) Tobacco abuse (Acute) Urge incontinence (Acute) Hearing loss (Acute) right ear Dyspareunia (Acute) Edema (Acute) SOB (shortness of breath) (Acute) Dog bite of left thigh with infection (Acute) Dog bite (Acute) Cellulitis of left thigh (Acute) Chronic anxiety (Acute) Otorrhea of both ears (Acute) Smoker (Acute) Hoarseness of voice (Acute) Bilateral hearing loss (Acute) Central perforation of tympanic membrane, left ear (Acute) Medical History Abdominal pain Chest pain Chills (without fever) Chronic obstructive pulmonary disease Depression with anxiety Dyspepsia Easy bruising Hip pain History of posttraumatic stress disorder (PTSD) Human papillomavirus Impaired swallowing Lower back pain 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 Pleuritic chest pain Skin lesion Suicidal ideation Thrush, oral Unresolved grief Wheezing Family History Mother Asthma COPD (chronic obstructive pulmonary disease) Maternal Grandmother COPD (chronic obstructive pulmonary disease) Lung cancer Aunt COPD (chronic obstructive pulmonary disease) Aunt COPD (chronic obstructive pulmonary disease) Social History Smoking/Tobacco Use Status: Current every day Tobacco Type: cigarettes Smoking packs per day: 1.5 Smoking cigarettes per day: 30.0 Smoking risk assessment performed?: Yes Alcohol Intake: former Drug use: Daily Substance use type: marijuana Housing: other Do you feel safe at home: Yes Do you feel safe in your relationship?: Yes Meds Allergies and Home Medications Allergies Allergy/AdvReac Type Severity Reaction Status Date / Time Penicillins Allergy Intermediate Hives Verified 09/04/24 15:02 duloxetine (From Cymbalta) Allergy Unknown Visual Verified 09/04/24 15:02 Disturbances house dust Allergy Other (See Verified 09/04/24 15:02 Comment) ropinirole (From Requip) AdvReac Intermediate hallucinate Verified 09/04/24 15:02 / confusion Home Medications ?Medication ?Instructions ?Recorded ?Confirmed ?Type fluticasone propionate 230 2 puff inhalation BID #12 grams 06/30/22 09/04/24 Rx mcg-salmeterol 21 mcg/actuation HFA inhaler (Advair HFA) bupropion HCl 300 mg 24 hr tablet, 300 mg PO DAILY 06/12/23 09/04/24 History extended release (Wellbutrin XL) tiotropium bromide 2.5 See Rx Instructions .Route 08/03/23 09/04/24 Rx mcg/actuation mist for inhalation .COMPLEX #4 grams (Spiriva Respimat) albuterol sulfate 2.5 mg/3 mL See Rx Instructions .Route 03/21/24 09/04/24 Rx (0.083 %) solution for nebulization .COMPLEX #180 ea levothyroxine 200 mcg tablet 200 mcg PO DAILY 09/05/24 09/05/24 History prednisone 20 mg tablet 20 mg PO DAILY #7 tabs 09/08/24 Rx Results Labs 09/06/24 20:00 09/06/24 06:20 Last Vital Signs Temp 36.1 C L 09/08/24 11:14 Pulse 86 09/08/24 13:31 Resp 16 09/08/24 13:23 BP 148/88 H 09/08/24 11:14 Pulse Ox 92 09/08/24 13:23 Time Spent Time spent with Patient: 40-54 minutes Time was spent: preparing to see the patient(eg.review tests), obtaining and/or reviewing separately otained hiistory, ordering medications,tests, procedures, referring, communicating with other health child care education coordinator, indepentently interpreting results, counseling the patient and care coordination
== END 2024-09-08 14:06 | disposition home or self-care (01) | DRG 193 ==
LOC: ER 15:57 → ICU 18:04 → MS 09-05 15:02
PROVIDERS: Emergency Medicine; Admitting Provider Hospitalist; Emergency Provider Emergency Medicine; PCP Family Medicine; Visit Provider Hospitalist
DX: J10.1 Influenza due to other identified influenza virus with other respiratory manifestations; J96.01 Acute respiratory failure with hypoxia; J96.02 Acute respiratory failure with hypercapnia; J44.1 Chronic obstructive pulmonary disease with (acute) exacerbation; E66.2 Morbid (severe) obesity with alveolar hypoventilation; E87.20 Acidosis, unspecified; Z68.43 Body mass index [BMI] 50.0-59.9, adult; F17.210 Nicotine dependence, cigarettes, uncomplicated; F41.9 Anxiety disorder, unspecified; Z14.8 Genetic carrier of other disease
CPT/HCPCS: 00123; 36415; 80048; 80053; 82805; 84145; 85027; 85652; 87040; 87637; 93005; 94640; 94644; 96365; 96366; 96375; 99291; J1650; 71045; 71046; 83735; 83880; 84443; 84484; 84703; 85025; 86140; 93010; 94660; 94664; 94668; 94760; 99223; 99232; 99233; 99239; J1815; J2060; J2270; J2470; J2919; J3475; J7512; J7613; J7620

== ENCOUNTER 2024-10-18 16:49 | Outpatient (REF) | payer MEDICARE, MEDICAID, SELFPAY ==
[2024-10-18 18:33] LABS: Hemoglobin A1C 5.9 % (<5.7)
[2024-10-18 18:35] LABS: TSH (W/Ref FT4) 1.41 uIU/mL (0.36-3.74)
== END 2024-10-18 16:50 | disposition home or self-care (01) ==
LOC: NCHCN 16:49
PROVIDERS: PCP Family Medicine; Visit Provider Family Medicine
DX: E03.9 Hypothyroidism, unspecified (principal); R73.9 Hyperglycemia, unspecified
CPT/HCPCS: 83036; 84443

== ENCOUNTER → 2024-11-01 13:20 | Outpatient (BNVA) | payer MEDICARE, MEDICAID, SELFPAY | PROVIDERS: PCP Family Medicine; Referring Provider Family Medicine; Visit Provider Physician Assistant Surgical | DX: J44.9 Chronic obstructive pulmonary disease, unspecified (principal); Z14.8 Genetic carrier of other disease; Z72.0 Tobacco use; E66.9 Obesity, unspecified | CPT/HCPCS: 99214 ==

== ENCOUNTER 2025-01-02 00:59 | Outpatient (CLI) | payer MEDICARE, MEDICAID, SELFPAY ==
--- NOTE | 2025-01-02 | DI.RAD_ITS ---
Exam(s) XR KNEE RT 3V AP,LAT,BENJAMIN EXAM: XR KNEE RT 3V AP,LAT,BENJAMIN CLINICAL HISTORY: Pain in rt knee, M25.561. TECHNIQUE: 2D digital imaging was performed. Three views. COMPARISON: No exams were available for comparison FINDINGS: BONES: No acute fracture is present. No bony destructive lesion is seen. JOINTS: The knee is normally aligned. The joint spaces are maintained. There is minimal periarticul ar spurring. No joint effusion is seen. SOFT TISSUE: Normal. IMPRESSION: Minimal degenerative changes of the right knee. DATA REPOSITORY: RADIATION DOSE DELIVERED:
--- NOTE | 2025-01-02 | DI.RAD_ITS ---
Exam(s) XR LUMBAR SPINE COMPLETE EXAM: XR LUMBAR SPINE COMPLETE CLINICAL HISTORY: LBP, M54.50. TECHNIQUE: 2D digital imaging was performed. Five views. COMPARISON: CR LUMBAR SPINE COMPLETE from 10/13/2010 FINDINGS: BONES: No fracture or destructive lesion. Vertebral body heights are maintained. No facet hypertro phy identified . DISKS: Intervertebral disc spaces are maintained. There are minimal endplate osteophytes at the superior endplate of L 2 and L5. ALIGNMENT: Lumbar spinal alignment is within normal limits. SOFT TISSUE: Normal. IMPRESSION: Minimal degenerative changes. DATA REPOSITORY: RADIATION DOSE DELIVERED:
--- NOTE | 2025-01-02 | DI.RAD_ITS ---
Exam(s) XR SACROILIAC JOINTS XR HIP PELVIS ADULT BL EXAM: XR HIP PELVIS ADULT BL CLINICAL HISTORY: Pain in unspecified hip, M25.559. TECHNIQUE: 2D digital imaging was performed. Six views. COMPARISON: CR XR LUMBAR SPINE COMPLETE from 11/16/2020 CR XR SACROILIAC JOINTS from 01/02/2025 FINDINGS: BONES: No acute fracture is present. No bony destructive lesion is seen. JOINTS: No dislocation present. SI joints and pubic symphysis are unremarkable. Hip joint spaces a re maintained. SOFT TISSUE: Normal. IMPRESSION: Unremarkable radiographs of the bilateral hips and SI joints.. DATA REPOSITORY: RADIATION DOSE DELIVERED:
== END 2025-01-02 01:19 ==
LOC: DI 00:59
PROVIDERS: PCP Family Medicine; Visit Provider Family Medicine
DX: M25.551 Pain in right hip (principal); M25.552 Pain in left hip; M54.50 Low back pain, unspecified
CPT/HCPCS: 73521; 73562; 72110; 72202